=== PATIENT | female | born 1965 | race African-American/Black ===

== ENCOUNTER 2017-06-20 16:40 | Inpatient (IN) ==
[2017-06-20 21:44] LABS: Basophils % 0.3 % (0.0-0.8); Eosinophils # 0.1 10*3/uL (0.0-0.87); Eosinophils % 1.1 % (0.00-10.9); Hematocrit 20.6 VOL% (35.7-47.0); Hemoglobin 6.8 GM/DL (12.0-16.0); Immature Granulocytes % 0.5 %; Immature Granulocytes Absolute 0.06 #; Lymphocytes # 2.4 10*3/uL (1.4-4.0); Lymphocytes % 20.5 % (21.3-54.2); Mean Corpuscular Hemoglobin 29 PG (27-34); Mean Corpuscular Volume 87.3 FL (87-102); Mean Platelet Volume 10.3 FL (9.6-12.0); Monocytes # 1.4 10*3/uL (0.11-0.8); Monocytes % 12.2 % (1.7-12.7); Neutrophils # 7.5 10*3/uL (1.4-7.4); Neutrophils % 65.4 % (38.7-73.9); Platelet Count 217 T/CUMM (130-400); Red Blood Count 2.36 MC/CUMM (3.8-5.5); Red Cell Distribution Width 14.4 % (9.3-17.3); White Blood Count 11.5 T/CUMM (4-12)
[2017-06-20 21:51] LABS: INR 1.1; PT Patient Result 11.8 SECS
[2017-06-20] MEDS ORDERED: HYDROmorphone 2 MG/1 ML VIAL IV STA (22:06)
[2017-06-20] MEDS ORDERED: ALBUTEROL/IPRATROPIUM 3 ML NEB RESP TX STA (22:06)
[2017-06-20] MEDS ORDERED: ONDANSETRON 4 MG/2 ML VIAL IV STA (22:06)
[2017-06-20] MEDS ORDERED: ONDANSETRON 4 MG/2 ML VIAL ONE (23:32)
[2017-06-20] MEDS ORDERED: HYDROmorphone 2 MG/1 ML VIAL ONE (23:34)
[2017-06-20 23:47] LABS: Alanine Aminotransferase 63 U/L (13-56); Albumin 3.9 G/DL (3.4-5.0); Alkaline Phosphatase 145 U/L (45-117); Aspartate Amino Transferase 46 U/L (0-37); Blood Urea Nitrogen 18 MG/DL (7-18); Calcium 8.2 MG/DL (8.5-10.1); Glucose 104 MG/DL (74-106); Magnesium 2.1 MG/DL (1.8-2.4); Potassium 3.6 MMOL/L (3.5-5.1); Sodium 136 MMOL/L (136-145); Total Protein 7.8 G/DL (6.4-8.3)
[2017-06-21] MEDS ORDERED: guaiFENesin/DM ER 600-30 MG TABLET PO PRN (01:50)
[2017-06-21] MEDS ORDERED: SODIUM CHLORIDE 0.9% 1,000 ML IV PRN (01:50)
[2017-06-21] MEDS ORDERED: FUROSEMIDE 40 MG/4 ML VIAL IV STA (01:50)
[2017-06-21] MEDS ORDERED: ONDANSETRON 4 MG/2 ML VIAL ONE (02:55)
[2017-06-21] MEDS ORDERED: HYDROmorphone 2 MG/1 ML VIAL ONE (02:55)
[2017-06-21] MEDS: HYDROmorphone 2 MG/1 ML VIAL IV PRN ×3 (02:58→20:39)
[2017-06-21] MEDS: ONDANSETRON 4 MG/2 ML VIAL IV PRN ×2 (03:00→14:18)
[2017-06-21] MEDS: ENOXAPARIN 30 MG/0.3 ML SYRINGE SUBCUT SCH (06:45)
[2017-06-21] MEDS: PANTOPRAZOLE 40 MG TABLET PO SCH (11:02)
[2017-06-21] MEDS: DOCUSATE SODIUM 100 MG CAPSULE PO SCH ×2 (11:02→20:37)
[2017-06-21 12:59] LABS: Hematocrit 28.4 VOL% (35.7-47.0); Hemoglobin 9.6 GM/DL (12.0-16.0)
[2017-06-21] MEDS: CALCIUM ACETATE 667 MG CAPSULE PO SCH (18:18)
[2017-06-21] MEDS: CARVEDILOL 12.5 MG TABLET PO SCH (20:38)
[2017-06-21] MEDS: FANAPT 8 MG PO SCH (20:38)
[2017-06-22] MEDS: ENOXAPARIN 30 MG/0.3 ML SYRINGE SUBCUT SCH (04:10)
[2017-06-22] MEDS: HYDROmorphone 2 MG/1 ML VIAL IV PRN (04:18)
[2017-06-22 06:03] LABS: Basophils % 0.4 % (0.0-0.8); Eosinophils # 0.2 10*3/uL (0.0-0.87); Eosinophils % 1.9 % (0.00-10.9); Hematocrit 28.1 VOL% (35.7-47.0); Hemoglobin 9.4 GM/DL (12.0-16.0); Immature Granulocytes % 0.4 %; Immature Granulocytes Absolute 0.05 #; Lymphocytes # 2.2 10*3/uL (1.4-4.0); Lymphocytes % 19.5 % (21.3-54.2); Mean Corpuscular HGB Conc 33.5 GM/DL (32-36); Mean Corpuscular Hemoglobin 29 PG (27-34); Mean Corpuscular Volume 87.8 FL (87-102); Mean Platelet Volume 11.2 FL (9.6-12.0); Monocytes # 1.5 10*3/uL (0.11-0.8); Monocytes % 13.5 % (1.7-12.7); NRBC # 0.02 10*3/uL; Neutrophils # 7.3 10*3/uL (1.4-7.4); Neutrophils % 64.3 % (38.7-73.9); Platelet Count 187 T/CUMM (130-400); Red Cell Distribution Width 15.1 % (9.3-17.3); White Blood Count 11.4 T/CUMM (4-12)
[2017-06-22 06:57] LABS: Albumin 3.7 G/DL (3.4-5.0); Bilirubin,Total 1.6 MG/DL (0.2-1.0); Calcium 7.5 MG/DL (8.5-10.1); Osmolality,Calculated 282.5 MOS/KG (273-304); Potassium 4.5 MMOL/L (3.5-5.1); Total Protein 7.2 G/DL (6.4-8.3)
[2017-06-22] MEDS ORDERED: LOSARTAN 50 MG TABLET PO SCH (09:00)
[2017-06-22] MEDS ORDERED: CINACALCET 30 MG TABLET PO SCH (09:00)
[2017-06-22 09:33] VITALS: BP 136/69
[2017-06-22] MEDS: FANAPT 8 MG PO SCH (09:41)
[2017-06-22] MEDS: DOCUSATE SODIUM 100 MG CAPSULE PO SCH (09:41)
[2017-06-22] MEDS: CALCIUM ACETATE 667 MG CAPSULE PO SCH ×2 (09:41→12:04)
[2017-06-22] MEDS: CARVEDILOL 12.5 MG TABLET PO SCH (09:41)
[2017-06-22] MEDS: PANTOPRAZOLE 40 MG TABLET PO SCH (09:42)
[2017-06-22] MEDS ORDERED: VANCOMYCIN INJ 1,000 MG in SODIUM CHLORIDE 0.9% 250 ML IV ONE (13:00)
[2017-06-22] MEDS ORDERED: HEPARIN LOCK FLUSH 500 UNIT/5 ML SYRINGE IV PRN (14:52)
== END 2017-06-22 15:56 | disposition home or self-care (01) | DRG 811 ==
LOC: N.ED 16:40 → N.EDINP 06-21 01:00 → N.4E 06-21 12:12
PROVIDERS: ADMIT Family Medicine; ATTEND Family Medicine

== ENCOUNTER 2017-07-28 21:42 | Inpatient (IN) ==
[2017-07-29] MEDS ORDERED: PROMETHAZINE INJ 12.5 MG in SODIUM CHLORIDE 0.9% 50 ML IV STA (00:22)
[2017-07-29] MEDS ORDERED: HYDROmorphone 2 MG/1 ML VIAL IV STA (00:22)
[2017-07-29] MEDS ORDERED: PROMETHAZINE 25 MG/1 ML VIAL ONE (00:27)
[2017-07-29] MEDS ORDERED: HYDROmorphone 2 MG/1 ML VIAL ONE (00:28)
[2017-07-29] MEDS ORDERED: NOREPINEPHRINE 4 MG/4 ML VIAL IV ONE (01:07)
[2017-07-29 01:36] LABS: Basophils % 0.3 % (0.0-0.8); Eosinophils # 0.2 10*3/uL (0.0-0.87); Eosinophils % 1.6 % (0.00-10.9); Hemoglobin 9.1 GM/DL (12.0-16.0); Immature Granulocytes % 0.5 %; Immature Granulocytes Absolute 0.07 #; Lymphocytes # 2.3 10*3/uL (1.4-4.0); Lymphocytes % 17.5 % (21.3-54.2); Mean Corpuscular HGB Conc 33.7 GM/DL (32-36); Mean Corpuscular Hemoglobin 29 PG (27-34); Mean Corpuscular Volume 85.2 FL (87-102); Mean Platelet Volume 11.1 FL (9.6-12.0); Monocytes # 1.4 10*3/uL (0.11-0.8); Monocytes % 10.6 % (1.7-12.7); Neutrophils # 8.9 10*3/uL (1.4-7.4); Neutrophils % 69.5 % (38.7-73.9); Platelet Count 190 T/CUMM (130-400); Red Blood Count 3.17 MC/CUMM (3.8-5.5); Red Cell Distribution Width 14.9 % (9.3-17.3); White Blood Count 12.9 T/CUMM (4-12)
[2017-07-29 02:42] LABS: Bilirubin,Total 2.1 MG/DL (0.2-1.0); Calcium 8.3 MG/DL (8.5-10.1); Osmolality,Calculated 291.5 MOS/KG (273-304); Potassium 4.5 MMOL/L (3.5-5.1); Total Protein 7.7 G/DL (6.4-8.3); Troponin I Only 0.019 NG/ML (0.00-0.045)
[2017-07-29] MEDS ORDERED: METHOCARBAMOL 750 MG TABLET PO PRN (03:38)
[2017-07-29] MEDS ORDERED: ONDANSETRON 4 MG/2 ML VIAL IV PRN (03:55)
[2017-07-29] MEDS ORDERED: ILOPERIDONE 8 MG PO SCH (09:00)
[2017-07-29] MEDS: CALCIUM ACETATE 667 MG CAPSULE PO SCH ×3 (09:14→17:17)
[2017-07-29] MEDS: PANTOPRAZOLE 40 MG TABLET PO SCH (09:14)
[2017-07-29] MEDS: LOSARTAN 50 MG TABLET PO SCH (09:14)
[2017-07-29] MEDS: CARVEDILOL 12.5 MG TABLET PO SCH ×2 (09:14→20:36)
[2017-07-29] MEDS: CINACALCET 30 MG TABLET PO SCH (17:16)
[2017-07-30 04:05] LABS: Basophils # 0.1 10*3/uL (0.0-0.2); Basophils % 0.5 % (0.0-0.8); Eosinophils # 0.4 10*3/uL (0.0-0.87); Eosinophils % 3.8 % (0.00-10.9); Hematocrit 28.4 VOL% (35.7-47.0); Hemoglobin 9.2 GM/DL (12.0-16.0); Immature Granulocytes % 0.4 %; Immature Granulocytes Absolute 0.04 #; Lymphocytes # 2.3 10*3/uL (1.4-4.0); Lymphocytes % 22.1 % (21.3-54.2); Mean Corpuscular HGB Conc 32.4 GM/DL (32-36); Mean Corpuscular Hemoglobin 28 PG (27-34); Mean Corpuscular Volume 87.4 FL (87-102); Mean Platelet Volume 10.7 FL (9.6-12.0); Monocytes # 1.4 10*3/uL (0.11-0.8); Monocytes % 13.4 % (1.7-12.7); Neutrophils # 6.3 10*3/uL (1.4-7.4); Neutrophils % 59.8 % (38.7-73.9); Platelet Count 180 T/CUMM (130-400); Red Blood Count 3.25 MC/CUMM (3.8-5.5); Red Cell Distribution Width 15.5 % (9.3-17.3); White Blood Count 10.6 T/CUMM (4-12)
[2017-07-30 04:34] LABS: Albumin 3.9 G/DL (3.4-5.0); Bilirubin,Total 1.4 MG/DL (0.2-1.0); Calcium 8.1 MG/DL (8.5-10.1); Osmolality,Calculated 282.7 MOS/KG (273-304); Potassium 4.4 MMOL/L (3.5-5.1)
[2017-07-30] MEDS: PANTOPRAZOLE 40 MG TABLET PO SCH (09:34)
[2017-07-30] MEDS: LOSARTAN 50 MG TABLET PO SCH (09:34)
[2017-07-30] MEDS: CARVEDILOL 12.5 MG TABLET PO SCH ×2 (09:34→20:59)
[2017-07-30] MEDS: CALCIUM ACETATE 667 MG CAPSULE PO SCH ×3 (09:34→17:17)
[2017-07-30] MEDS: cloNIDine 0.1 MG TABLET PO SCH ×3 (11:16→20:59)
[2017-07-30] MEDS: CINACALCET 30 MG TABLET PO SCH (17:17)
[2017-07-31 04:16] LABS: Basophils % 0.4 % (0.0-0.8); Eosinophils # 0.4 10*3/uL (0.0-0.87); Eosinophils % 3.6 % (0.00-10.9); Hematocrit 28.6 VOL% (35.7-47.0); Hemoglobin 9.3 GM/DL (12.0-16.0); Immature Granulocytes % 0.4 %; Immature Granulocytes Absolute 0.04 #; Lymphocytes # 2.5 10*3/uL (1.4-4.0); Lymphocytes % 23.3 % (21.3-54.2); Mean Corpuscular HGB Conc 32.5 GM/DL (32-36); Mean Corpuscular Hemoglobin 29 PG (27-34); Mean Corpuscular Volume 88.5 FL (87-102); Mean Platelet Volume 10.4 FL (9.6-12.0); Monocytes # 1.2 10*3/uL (0.11-0.8); Monocytes % 11.3 % (1.7-12.7); Neutrophils # 6.7 10*3/uL (1.4-7.4); Platelet Count 169 T/CUMM (130-400); Red Blood Count 3.23 MC/CUMM (3.8-5.5); Red Cell Distribution Width 15.4 % (9.3-17.3); White Blood Count 10.9 T/CUMM (4-12)
[2017-07-31 04:48] LABS: Calcium 7.8 MG/DL (8.5-10.1); Potassium 4.6 MMOL/L (3.5-5.1)
[2017-07-31] MEDS: PANTOPRAZOLE 40 MG TABLET PO SCH (08:53)
[2017-07-31] MEDS: CARVEDILOL 12.5 MG TABLET PO SCH (08:53)
[2017-07-31] MEDS: cloNIDine 0.1 MG TABLET PO SCH (08:53)
[2017-07-31] MEDS: LOSARTAN 50 MG TABLET PO SCH (08:53)
[2017-07-31] MEDS: CALCIUM ACETATE 667 MG CAPSULE PO SCH (08:53)
[2017-07-31 10:12] VITALS: BP 160/90
[2017-07-31] MEDS ORDERED: HEPARIN LOCK FLUSH 500 UNIT/5 ML SYRINGE IV ONE (10:27)
== END 2017-07-31 11:26 | disposition home or self-care (01) | DRG 640 ==
LOC: N.ED 21:42 → N.EDINP 07-29 03:36 → N.3E 07-29 03:58
PROVIDERS: ADMIT Internal Medicine; ATTEND Internal Medicine

== ENCOUNTER 2017-10-13 13:49 | Observation (INO) ==
[2017-10-13] MEDS ORDERED: SODIUM CHLORIDE 0.9% 1,000 ML IV STA (14:29)
[2017-10-13] MEDS ORDERED: ONDANSETRON ODT 4 MG TABLET PO STA (14:29)
[2017-10-13] MEDS ORDERED: cefTRIAXone 1,000 MG in SODIUM CHLORIDE 0.9% 100 ML IV STA (14:37)
[2017-10-13] MEDS ORDERED: HYDROmorphone 2 MG/1 ML VIAL IV STA (14:37)
[2017-10-13 15:01] LABS: Basophils % 0.2 % (0.0-0.8); Eosinophils # 0.1 10*3/uL (0.0-0.87); Eosinophils % 0.9 % (0.00-10.9); Immature Granulocytes % 0.6 %; Immature Granulocytes Absolute 0.06 #; Lymphocytes # 2.2 10*3/uL (1.4-4.0); Lymphocytes % 20.5 % (21.3-54.2); Mean Corpuscular HGB Conc 33.7 GM/DL (32-36); Mean Corpuscular Hemoglobin 28 PG (27-34); Mean Platelet Volume 10.3 FL (9.6-12.0); Monocytes # 1.3 10*3/uL (0.11-0.8); Monocytes % 11.8 % (1.7-12.7); NRBC # 0.06 10*3/uL; Platelet Count 201 T/CUMM (130-400); Red Blood Count 2.12 MC/CUMM (3.8-5.5); Red Cell Distribution Width 17.7 % (9.3-17.3); White Blood Count 10.6 T/CUMM (4-12)
[2017-10-13 15:06] LABS: Hematocrit 17.8 VOL% (35.7-47.0)
[2017-10-13 15:15] LABS: Albumin 3.5 G/DL (3.4-5.0); Bilirubin,Total 2.9 MG/DL (0.2-1.0); Calcium 8.2 MG/DL (8.5-10.1); Osmolality,Calculated 275.8 MOS/KG (273-304); Potassium 3.6 MMOL/L (3.5-5.1); Total Protein 7.4 G/DL (6.4-8.3)
[2017-10-13] MEDS ORDERED: SODIUM CHLORIDE 0.9% 1,000 ML IV PRN (15:39)
[2017-10-13] MEDS ORDERED: ONDANSETRON 4 MG/2 ML VIAL IV PRN (15:50)
[2017-10-13] MEDS ORDERED: ACETAMINOPHEN 325 MG TABLET PO PRN (15:50)
[2017-10-13] MEDS ORDERED: METHOCARBAMOL 750 MG TABLET PO PRN (15:53)
[2017-10-13] MEDS: CINACALCET 30 MG TABLET PO SCH (18:11)
[2017-10-13] MEDS: CALCIUM ACETATE 667 MG CAPSULE PO SCH (18:12)
[2017-10-13] MEDS: CARVEDILOL 12.5 MG TABLET PO SCH (20:17)
[2017-10-13] MEDS: hydrALAZINE 25 MG TABLET PO SCH (20:18)
[2017-10-13] MEDS: ILOPERIDONE 8 MG PO SCH (20:19)
[2017-10-13] MEDS ORDERED: ACETAMINOPHEN 325 MG TABLET PO ONE (20:28)
[2017-10-13] MEDS ORDERED: diphenhydrAMINE CAP 25 MG CAPSULE PO ONE (20:28)
[2017-10-14 05:53] LABS: Basophils % 0.2 % (0.0-0.8); Eosinophils # 0.1 10*3/uL (0.0-0.87); Eosinophils % 1.5 % (0.00-10.9); Hematocrit 22.7 VOL% (35.7-47.0); Immature Granulocytes % 0.8 %; Immature Granulocytes Absolute 0.07 #; Lymphocytes # 1.6 10*3/uL (1.4-4.0); Lymphocytes % 17.2 % (21.3-54.2); Mean Corpuscular HGB Conc 34.4 GM/DL (32-36); Mean Corpuscular Hemoglobin 29 PG (27-34); Mean Corpuscular Volume 85.3 FL (87-102); Mean Platelet Volume 11.5 FL (9.6-12.0); Monocytes % 10.6 % (1.7-12.7); Neutrophils # 6.5 10*3/uL (1.4-7.4); Neutrophils % 69.7 % (38.7-73.9); Platelet Count 185 T/CUMM (130-400); Red Blood Count 2.66 MC/CUMM (3.8-5.5); Red Cell Distribution Width 17.2 % (9.3-17.3); White Blood Count 9.3 T/CUMM (4-12)
[2017-10-14 06:01] LABS: Hemoglobin 7.8 GM/DL (12.0-16.0)
[2017-10-14 06:22] LABS: Calcium 7.6 MG/DL (8.5-10.1); Osmolality,Calculated 276.8 MOS/KG (273-304); Potassium 3.8 MMOL/L (3.5-5.1)
[2017-10-14] MEDS: CARVEDILOL 12.5 MG TABLET PO SCH ×2 (08:39→22:30)
[2017-10-14] MEDS: PANTOPRAZOLE 40 MG TABLET PO SCH (08:39)
[2017-10-14] MEDS: ILOPERIDONE 8 MG PO SCH ×2 (08:39→22:32)
[2017-10-14] MEDS: hydrALAZINE 25 MG TABLET PO SCH ×3 (08:39→22:30)
[2017-10-14] MEDS: CALCIUM ACETATE 667 MG CAPSULE PO SCH ×3 (08:39→17:45)
[2017-10-14] MEDS ORDERED: amLODIPine 2.5 MG TABLET PO SCH (09:00)
[2017-10-14] MEDS ORDERED: EPOETIN ALFA 10,000 UNIT/1 ML VIAL IV PRN (09:40)
[2017-10-14] MEDS: guaiFENesin/CODEINE 5 ML LIQUID PO PRN ×2 (14:31→22:31)
[2017-10-14] MEDS: amLODIPine 5 MG TABLET PO SCH (14:31)
[2017-10-14] MEDS ORDERED: cefTRIAXone 1,000 MG in SYRINGE 1 EACH IV SCH (15:00)
[2017-10-14] MEDS: CINACALCET 30 MG TABLET PO SCH (17:45)
[2017-10-14] MEDS ORDERED: MEPERIDINE 25 MG/1 ML VIAL IV PRN (18:44)
[2017-10-15] MEDS: CALCIUM ACETATE 667 MG CAPSULE PO SCH ×2 (09:48→12:49)
[2017-10-15] MEDS: hydrALAZINE 25 MG TABLET PO SCH (09:49)
[2017-10-15] MEDS: PANTOPRAZOLE 40 MG TABLET PO SCH (09:54)
[2017-10-15] MEDS: ILOPERIDONE 8 MG PO SCH (09:54)
[2017-10-15 12:35] VITALS: BP 179/89
[2017-10-15] MEDS: CARVEDILOL 12.5 MG TABLET PO SCH (12:49)
[2017-10-15] MEDS: amLODIPine 5 MG TABLET PO SCH (12:49)
== END 2017-10-15 13:32 | disposition home or self-care (01) ==
LOC: N.ED 13:49 → N.EDINP 13:49 → SUATTDRO 15:50 → N.2E 17:15
PROVIDERS: ADMIT Internal Medicine; ATTEND Internal Medicine Infectious Disease

== ENCOUNTER 2017-11-16 08:59 | Inpatient (IN) ==
[2017-11-16 10:23] LABS: Basophils % 0.1 % (0.0-0.8); Hematocrit 21.3 VOL% (35.7-47.0); Hemoglobin 6.9 GM/DL (12.0-16.0); Immature Granulocytes % 0.9 %; Lymphocytes # 2.5 10*3/uL (1.4-4.0); Lymphocytes % 11.3 % (21.3-54.2); Mean Corpuscular HGB Conc 32.4 GM/DL (32-36); Mean Corpuscular Hemoglobin 29 PG (27-34); Mean Platelet Volume 10.9 FL (9.6-12.0); Monocytes # 2.8 10*3/uL (0.11-0.8); Monocytes % 13.1 % (1.7-12.7); NRBC # 0.06 10*3/uL; Neutrophils # 16.2 10*3/uL (1.4-7.4); Neutrophils % 74.6 % (38.7-73.9); Platelet Count 218 T/CUMM (130-400); Red Blood Count 2.42 MC/CUMM (3.8-5.5); Red Cell Distribution Width 19.9 % (9.3-17.3); White Blood Count 21.7 T/CUMM (4-12)
[2017-11-16] MEDS ORDERED: HYDROmorphone 2 MG/1 ML VIAL ONE (10:23)
[2017-11-16] MEDS ORDERED: ONDANSETRON 4 MG/2 ML VIAL ONE (10:23)
[2017-11-16] MEDS ORDERED: fentaNYL 100 MCG/2 ML VIAL IV STA (10:24)
[2017-11-16] MEDS ORDERED: ONDANSETRON 4 MG/2 ML VIAL IV STA (10:25)
[2017-11-16 10:50] LABS: Albumin 3.7 G/DL (3.4-5.0); Bilirubin,Total 3.3 MG/DL (0.2-1.0); Calcium 8.7 MG/DL (8.5-10.1); Osmolality,Calculated 293.5 MOS/KG (273-304); Potassium 4.2 MMOL/L (3.5-5.1); Total Protein 7.4 G/DL (6.4-8.3)
[2017-11-16 10:53] LABS: INR 1.3; PT Patient Result 13.7 SECS
[2017-11-16 12:13] LABS: Partial Thromboplastin Time > 320.0 SECS (0-40)
[2017-11-16 12:37] LABS: Band Neutrophils 4 % (0-10); Hypochromasia 2+; Lymphocytes 14 % (20-55); Macrocytosis 1+; Microcytosis 1+; Segmented Neutrophils 73 % (50-85); Total Cells Counted 100
[2017-11-16 12:38] LABS: Pappenheimer Bodies Few; Polychromasia Slight; Target Cells Slight
[2017-11-16 12:39] LABS: Platelet Estimate Adequate; Sickle Cells Slight
[2017-11-16] MEDS ORDERED: GLUCAGON 1 MG VIAL IM PRN (13:52)
[2017-11-16] MEDS ORDERED: ACETAMINOPHEN 325 MG TABLET PO PRN (13:52)
[2017-11-16] MEDS ORDERED: guaiFENesin/DM ER 600-30 MG TABLET PO PRN (13:52)
[2017-11-16] MEDS ORDERED: DEXTROSE 50% 25 GM/50 ML VIAL IV PRN (13:52)
[2017-11-16] MEDS ORDERED: ONDANSETRON 4 MG/2 ML VIAL IV PRN (13:52)
[2017-11-16] MEDS ORDERED: DOCUSATE SODIUM 100 MG CAPSULE PO PRN (13:52)
[2017-11-16] MEDS ORDERED: diphenhydrAMINE CAP 25 MG CAPSULE PO PRN (13:52)
[2017-11-16] MEDS ORDERED: MEPERIDINE 50 MG TABLET PO PRN (14:01)
[2017-11-16] MEDS ORDERED: SODIUM CHLORIDE 0.9% 1,000 ML IV PRN (14:47)
[2017-11-16] MEDS ORDERED: HYDROmorphone 2 MG/1 ML VIAL IV PRN (15:18)
[2017-11-16] MEDS ORDERED: CINACALCET 30 MG TABLET PO SCH (17:00)
[2017-11-16 17:06] LABS: Hepatitis A Ab IgM Result Negative (Negative); Hepatitis B Core IgM Quant 0.15 Index; Hepatitis B Core IgM Result Negative (Negative); Hepatitis B Surface Ag Quant < 0.10 Index; Hepatitis B Surface Ag Result Negative (Negative); Hepatitis C Virus Ab Quant 0.13 Index; Hepatitis C Virus Ab Result Negative (Negative)
[2017-11-16] MEDS: BUDESONIDE/FORMOTEROL 160-4.5 INHALER 6 GM INH SCH ×2 (18:11→20:31)
[2017-11-16] MEDS: PANTOPRAZOLE 40 MG TABLET PO SCH (18:11)
[2017-11-16] MEDS: CARVEDILOL 12.5 MG TABLET PO SCH (18:11)
[2017-11-16] MEDS: hydrALAZINE 25 MG TABLET PO SCH ×2 (18:11→20:31)
[2017-11-16] MEDS: MONTELUKAST 10 MG TABLET PO SCH (18:11)
[2017-11-16] MEDS: ILOPERIDONE 8 MG PO SCH ×2 (18:11→22:27)
[2017-11-16] MEDS: CALCIUM ACETATE 667 MG CAPSULE PO SCH (18:12)
[2017-11-17 06:37] LABS: Basophils % 0.2 % (0.0-0.8); Eosinophils # 0.1 10*3/uL (0.0-0.87); Eosinophils % 0.5 % (0.00-10.9); Hematocrit 25.1 VOL% (35.7-47.0); Hemoglobin 8.6 GM/DL (12.0-16.0); Immature Granulocytes Absolute 0.14 #; Lymphocytes # 2.6 10*3/uL (1.4-4.0); Lymphocytes % 18.6 % (21.3-54.2); Mean Corpuscular HGB Conc 34.3 GM/DL (32-36); Mean Corpuscular Hemoglobin 29 PG (27-34); Mean Corpuscular Volume 85.1 FL (87-102); Mean Platelet Volume 11.4 FL (9.6-12.0); Monocytes # 1.8 10*3/uL (0.11-0.8); Monocytes % 12.8 % (1.7-12.7); NRBC # 0.09 10*3/uL; Neutrophils # 9.3 10*3/uL (1.4-7.4); Neutrophils % 66.9 % (38.7-73.9); Platelet Count 240 T/CUMM (130-400); Red Blood Count 2.95 MC/CUMM (3.8-5.5); Red Cell Distribution Width 19.8 % (9.3-17.3); White Blood Count 13.8 T/CUMM (4-12)
[2017-11-17 07:11] LABS: Albumin 3.3 G/DL (3.4-5.0); Bilirubin,Total 3.1 MG/DL (0.2-1.0); Calcium 8.8 MG/DL (8.5-10.1); Osmolality,Calculated 276.2 MOS/KG (273-304); Potassium 4.1 MMOL/L (3.5-5.1); Risk Ratio 6.67; Thyroid Stimulating Hormone 1.7 uIU/ml (0.358-3.74); Total Protein 7.6 G/DL (6.4-8.3)
[2017-11-17] MEDS ORDERED: NALOXONE 0.4 MG/ML VIAL ONE (08:39)
[2017-11-17] MEDS ORDERED: NALOXONE 0.4 MG/ML VIAL IV ONE ×2 (08:41→08:57)
[2017-11-17 08:58] LABS: ABG Base Excess 1.2 MMOL/L (-2.5-2.5); ABG HCO3 25.3 MMOL/L (20-26); ABG Oxygen Saturation 89.1 % (95-100); ABG PH 7.333 (7.35-7.45); ABG PO2 57.2 MM HG (80-95); ABG TCO2 25.8 MMOL/L (23-27)
[2017-11-17] MEDS ORDERED: amLODIPine 2.5 MG TABLET PO SCH (09:00)
[2017-11-17] MEDS ORDERED: OMEGA 3 ACID ETHYL ESTERS 1 GM CAPSULE PO SCH (09:00)
[2017-11-17] MEDS: MONTELUKAST 10 MG TABLET PO SCH (10:00)
[2017-11-17] MEDS: CARVEDILOL 12.5 MG TABLET PO SCH (10:00)
[2017-11-17] MEDS: CALCIUM ACETATE 667 MG CAPSULE PO SCH ×2 (10:00→12:44)
[2017-11-17] MEDS: hydrALAZINE 25 MG TABLET PO SCH (10:00)
[2017-11-17] MEDS: ILOPERIDONE 8 MG PO SCH (10:05)
[2017-11-17] MEDS: PANTOPRAZOLE 40 MG TABLET PO SCH (10:05)
[2017-11-17] MEDS: BUDESONIDE/FORMOTEROL 160-4.5 INHALER 6 GM INH SCH (10:06)
[2017-11-17] MEDS: ACETAMINOPHEN 325 MG TABLET PO PRN (17:19)
[2017-11-18 06:56] LABS: Partial Thromboplastin Time 25.5 SECS (0-40)
[2017-11-18] MEDS: ACETAMINOPHEN 325 MG TABLET PO PRN (09:38)
[2017-11-18 13:18] VITALS: BP 154/70
== END 2017-11-18 13:30 | disposition home or self-care (01) | DRG 811 ==
LOC: EDUNIT# → EDBD → N.ED 08:59 → N.EDINP 13:08 → N.5E 13:45 → N.CC 11-17 08:49 → N.5E 11-17 13:49
PROVIDERS: ADMIT Internal Medicine; ATTEND Internal Medicine

== ENCOUNTER 2018-01-05 19:52 | Inpatient (IN) ==
[2018-01-05] MEDS ORDERED: ALBUTEROL/IPRATROPIUM 3 ML NEB RESP TX STA (20:23)
[2018-01-05] MEDS ORDERED: FUROSEMIDE 100 MG/10 ML VIAL IV STA (20:23)
[2018-01-05] MEDS ORDERED: MEPERIDINE 25 MG/1 ML VIAL IV STA ×2 (20:23→23:32)
[2018-01-05] MEDS ORDERED: ONDANSETRON 4 MG/2 ML VIAL IV STA ×2 (20:23→23:33)
[2018-01-05 20:40] LABS: Basophils % 0.3 % (0.0-0.8); Eosinophils # 0.1 10*3/uL (0.0-0.87); Eosinophils % 0.3 % (0.00-10.9); Hematocrit 26.7 VOL% (35.7-47.0); Hemoglobin 8.9 GM/DL (12.0-16.0); Immature Granulocytes % 0.7 %; Immature Granulocytes Absolute 0.11 #; Lymphocytes % 6.6 % (21.3-54.2); Mean Corpuscular HGB Conc 33.3 GM/DL (32-36); Mean Corpuscular Hemoglobin 29 PG (27-34); Mean Corpuscular Volume 87.3 FL (87-102); Mean Platelet Volume 11.1 FL (9.6-12.0); Monocytes # 1.6 10*3/uL (0.11-0.8); Monocytes % 10.1 % (1.7-12.7); Neutrophils # 12.8 10*3/uL (1.4-7.4); Platelet Count 169 T/CUMM (130-400); Red Blood Count 3.06 MC/CUMM (3.8-5.5); Red Cell Distribution Width 17.1 % (9.3-17.3); White Blood Count 15.6 T/CUMM (4-12)
[2018-01-05 20:48] LABS: Alanine Aminotransferase 70 U/L (13-56); Albumin 3.6 G/DL (3.4-5.0); Alkaline Phosphatase 195 U/L (45-117); Aspartate Amino Transferase 68 U/L (0-37); Blood Urea Nitrogen 58 MG/DL (7-18); Calcium 8.3 MG/DL (8.5-10.1); Glucose 116 MG/DL (74-106); Osmolality,Calculated 289.8 MOS/KG (273-304); PT Patient Result 10.8 SECS; Partial Thromboplastin Time 29.7 SECS (0-40); Potassium 5.3 MMOL/L (3.5-5.1); Sodium 137 MMOL/L (136-145); Total Protein 7.7 G/DL (6.4-8.3); Troponin I < 0.015 NG/ML (0.00-0.045)
[2018-01-05] MEDS ORDERED: hydrALAZINE 20 MG/1 ML VIAL IV STA (21:04)
[2018-01-05] MEDS ORDERED: DOCUSATE SODIUM 100 MG CAPSULE PO PRN (22:56)
[2018-01-05] MEDS ORDERED: ZALEPLON 5 MG CAPSULE PO PRN (22:56)
[2018-01-05] MEDS ORDERED: guaiFENesin/DM ER 600-30 MG TABLET PO PRN (22:56)
[2018-01-05] MEDS ORDERED: PROMETHAZINE 25 MG TABLET PO PRN (22:56)
[2018-01-05] MEDS ORDERED: diphenhydrAMINE CAP 25 MG CAPSULE PO PRN (22:56)
[2018-01-05] MEDS ORDERED: ONDANSETRON 4 MG/2 ML VIAL IV PRN (22:56)
[2018-01-05] MEDS ORDERED: SODIUM POLYSTYRENE SULFATE 15 GM/60 ML BOTTLE PO STA (23:25)
[2018-01-05] MEDS ORDERED: hydrALAZINE 20 MG/1 ML VIAL IV PRN (23:36)
[2018-01-06] MEDS: HYDROmorphone 2 MG/1 ML VIAL IV PRN (05:02)
[2018-01-06 05:43] LABS: Basophils % 0.2 % (0.0-0.8); Eosinophils % 0.3 % (0.00-10.9); Hematocrit 24.5 VOL% (35.7-47.0); Hemoglobin 8.3 GM/DL (12.0-16.0); Immature Granulocytes % 0.8 %; Lymphocytes # 1.6 10*3/uL (1.4-4.0); Lymphocytes % 12.2 % (21.3-54.2); Mean Corpuscular HGB Conc 33.9 GM/DL (32-36); Mean Corpuscular Hemoglobin 29 PG (27-34); Mean Corpuscular Volume 86.9 FL (87-102); Monocytes # 1.5 10*3/uL (0.11-0.8); Monocytes % 11.8 % (1.7-12.7); Neutrophils # 9.5 10*3/uL (1.4-7.4); Neutrophils % 74.7 % (38.7-73.9); Platelet Count 151 T/CUMM (130-400); Red Blood Count 2.82 MC/CUMM (3.8-5.5); Red Cell Distribution Width 17.6 % (9.3-17.3); White Blood Count 12.8 T/CUMM (4-12)
[2018-01-06 06:05] LABS: Albumin 3.5 G/DL (3.4-5.0); Bilirubin,Total 2.1 MG/DL (0.2-1.0); Calcium 8.1 MG/DL (8.5-10.1); Osmolality,Calculated 293.7 MOS/KG (273-304); Potassium 5.1 MMOL/L (3.5-5.1); Total Protein 7.4 G/DL (6.4-8.3)
[2018-01-06] MEDS: ILOPERIDONE 8 MG PO SCH ×2 (09:01→21:25)
[2018-01-06] MEDS: CINACALCET 30 MG TABLET PO SCH (09:02)
[2018-01-06] MEDS: CALCIUM ACETATE 667 MG CAPSULE PO SCH ×3 (09:02→17:13)
[2018-01-06] MEDS: MONTELUKAST 10 MG TABLET PO SCH (09:02)
[2018-01-06] MEDS: ENOXAPARIN 30 MG/0.3 ML SYRINGE SUBCUT SCH (10:26)
[2018-01-06] MEDS ORDERED: VANCOMYCIN INJ 750 MG in SODIUM CHLORIDE 0.9% 250 ML IV PRN (10:41)
[2018-01-06] MEDS ORDERED: VANCOMYCIN INJ 1,500 MG in SODIUM CHLORIDE 0.9% 500 ML IV ONE (11:00)
[2018-01-06] MEDS: amLODIPine 10 MG TABLET PO SCH (15:05)
[2018-01-06] MEDS: CARVEDILOL 12.5 MG TABLET PO SCH ×2 (15:06→21:26)
[2018-01-06] MEDS: LOSARTAN 50 MG TABLET PO SCH (15:06)
[2018-01-06] MEDS: BUDESONIDE/FORMOTEROL 160-4.5 INHALER 6 GM INH SCH ×2 (15:10→21:25)
[2018-01-07] MEDS: HYDROmorphone 2 MG/1 ML VIAL IV PRN (02:41)
[2018-01-07 03:39] LABS: Basophils % 0.4 % (0.0-0.8); Eosinophils # 0.1 10*3/uL (0.0-0.87); Eosinophils % 1.1 % (0.00-10.9); Hematocrit 26.8 VOL% (35.7-47.0); Hemoglobin 8.5 GM/DL (12.0-16.0); Immature Granulocytes % 0.7 %; Immature Granulocytes Absolute 0.07 #; Lymphocytes # 1.3 10*3/uL (1.4-4.0); Lymphocytes % 13.5 % (21.3-54.2); Mean Corpuscular HGB Conc 31.7 GM/DL (32-36); Mean Corpuscular Hemoglobin 29 PG (27-34); Mean Corpuscular Volume 91.8 FL (87-102); Mean Platelet Volume 10.7 FL (9.6-12.0); Monocytes # 1.2 10*3/uL (0.11-0.8); Monocytes % 12.8 % (1.7-12.7); Neutrophils # 6.9 10*3/uL (1.4-7.4); Neutrophils % 71.5 % (38.7-73.9); Platelet Count 148 T/CUMM (130-400); Red Blood Count 2.92 MC/CUMM (3.8-5.5); Red Cell Distribution Width 18.2 % (9.3-17.3); White Blood Count 9.6 T/CUMM (4-12)
[2018-01-07 03:59] LABS: Calcium 8.4 MG/DL (8.5-10.1)
[2018-01-07] MEDS: MONTELUKAST 10 MG TABLET PO SCH ×2 (07:49→08:55)
[2018-01-07] MEDS: CINACALCET 30 MG TABLET PO SCH ×2 (07:49→08:55)
[2018-01-07] MEDS: CALCIUM ACETATE 667 MG CAPSULE PO SCH ×3 (07:49→16:58)
[2018-01-07] MEDS: amLODIPine 10 MG TABLET PO SCH ×2 (07:50→08:55)
[2018-01-07] MEDS: LOSARTAN 50 MG TABLET PO SCH ×2 (07:50→08:55)
[2018-01-07] MEDS: ILOPERIDONE 8 MG PO SCH ×3 (07:50→20:45)
[2018-01-07] MEDS: CARVEDILOL 12.5 MG TABLET PO SCH ×3 (07:50→20:45)
[2018-01-07] MEDS: BUDESONIDE/FORMOTEROL 160-4.5 INHALER 6 GM INH SCH ×3 (07:53→20:45)
[2018-01-07] MEDS: ENOXAPARIN 30 MG/0.3 ML SYRINGE SUBCUT SCH (08:55)
[2018-01-08] MEDS: ENOXAPARIN 30 MG/0.3 ML SYRINGE SUBCUT SCH (08:33)
[2018-01-08] MEDS: CINACALCET 30 MG TABLET PO SCH (08:34)
[2018-01-08] MEDS: MONTELUKAST 10 MG TABLET PO SCH (08:34)
[2018-01-08] MEDS: CALCIUM ACETATE 667 MG CAPSULE PO SCH (08:34)
[2018-01-08] MEDS: CARVEDILOL 12.5 MG TABLET PO SCH (08:34)
[2018-01-08] MEDS: LOSARTAN 50 MG TABLET PO SCH (08:34)
[2018-01-08] MEDS: ILOPERIDONE 8 MG PO SCH (08:36)
[2018-01-08] MEDS: BUDESONIDE/FORMOTEROL 160-4.5 INHALER 6 GM INH SCH (08:37)
[2018-01-08] MEDS: amLODIPine 10 MG TABLET PO SCH (09:38)
[2018-01-08 12:45] VITALS: BP 161/68
== END 2018-01-08 13:16 | disposition home or self-care (01) | DRG 291 ==
LOC: EDUNIT# → EDBD → N.EDINP 19:52 → N.ED 19:52 → N.5E 01-06 00:32 → SUATTDRO 01-06 10:40
PROVIDERS: ATTEND Internal Medicine

== ENCOUNTER 2018-02-28 17:30 | Inpatient (IN) ==
[2018-02-28] MEDS ORDERED: hydrALAZINE 20 MG/1 ML VIAL IV STA ×2 (19:02→22:14)
[2018-02-28 20:43] LABS: Basophils % 0.3 % (0.0-0.8); Eosinophils # 0.1 10*3/uL (0.0-0.87); Immature Granulocytes % 0.6 %; Immature Granulocytes Absolute 0.07 #; Lymphocytes % 25.7 % (21.3-54.2); Mean Corpuscular HGB Conc 33.1 GM/DL (32-36); Mean Corpuscular Hemoglobin 29 PG (27-34); Mean Corpuscular Volume 87.9 FL (87-102); Mean Platelet Volume 10.5 FL (9.6-12.0); Monocytes # 1.4 10*3/uL (0.11-0.8); Monocytes % 11.6 % (1.7-12.7); Neutrophils # 7.2 10*3/uL (1.4-7.4); Neutrophils % 60.8 % (38.7-73.9); Platelet Count 206 T/CUMM (130-400); Red Blood Count 1.99 MC/CUMM (3.8-5.5); Red Cell Distribution Width 15.6 % (9.3-17.3); White Blood Count 11.8 T/CUMM (4-12)
[2018-02-28 20:47] LABS: Hematocrit 17.5 VOL% (35.7-47.0); Hemoglobin 5.8 GM/DL (12.0-16.0)
[2018-02-28] MEDS ORDERED: ONDANSETRON 4 MG/2 ML VIAL IV ONE (21:20)
[2018-02-28] MEDS ORDERED: fentaNYL 100 MCG/2 ML VIAL IV STA (21:20)
[2018-02-28] MEDS ORDERED: ONDANSETRON 4 MG/2 ML VIAL ONE (21:21)
[2018-02-28] MEDS ORDERED: fentaNYL 100 MCG/2 ML VIAL ONE (21:22)
[2018-02-28 21:24] LABS: Albumin 3.8 G/DL (3.4-5.0); Bilirubin,Total 1.3 MG/DL (0.2-1.0); Calcium 8.8 MG/DL (8.5-10.1); Osmolality,Calculated 291.1 MOS/KG (273-304); Potassium 3.7 MMOL/L (3.5-5.1); Total Protein 7.3 G/DL (6.4-8.3)
[2018-02-28] MEDS ORDERED: niCARdipine INJ 25 MG in SODIUM CHLORIDE 0.9% 240 ML IV PRN (22:22)
[2018-02-28] MEDS ORDERED: ONDANSETRON 4 MG/2 ML VIAL IV PRN (23:02)
[2018-02-28] MEDS ORDERED: hydrALAZINE 20 MG/1 ML VIAL IV PRN ×2 (23:07→23:20)
[2018-02-28] MEDS ORDERED: SODIUM CHLORIDE 0.9% 1,000 ML IV PRN (23:12)
[2018-02-28] MEDS: HYDROmorphone 2 MG/1 ML VIAL IV PRN (23:55)
[2018-03-01] MEDS ORDERED: SODIUM CHLORIDE 0.9% 1,000 ML IV PRN ×3 (01:04→08:59)
[2018-03-01] MEDS: CARVEDILOL 25 MG TABLET PO SCH ×3 (01:19→22:45)
[2018-03-01 07:46] LABS: Basophils % 0.2 % (0.0-0.8); Eosinophils % 0.2 % (0.00-10.9); Hematocrit 20.6 VOL% (35.7-47.0); Hemoglobin 6.8 GM/DL (12.0-16.0); Immature Granulocytes % 0.8 %; Immature Granulocytes Absolute 0.11 #; Lymphocytes # 1.1 10*3/uL (1.4-4.0); Lymphocytes % 8.1 % (21.3-54.2); Mean Corpuscular Hemoglobin 29 PG (27-34); Mean Corpuscular Volume 88.4 FL (87-102); Mean Platelet Volume 10.7 FL (9.6-12.0); Monocytes # 0.4 10*3/uL (0.11-0.8); Monocytes % 3.4 % (1.7-12.7); Neutrophils # 11.5 10*3/uL (1.4-7.4); Neutrophils % 87.3 % (38.7-73.9); Platelet Count 203 T/CUMM (130-400); Red Blood Count 2.33 MC/CUMM (3.8-5.5); White Blood Count 13.1 T/CUMM (4-12)
[2018-03-01 08:02] LABS: Calcium 8.4 MG/DL (8.5-10.1); Osmolality,Calculated 288.7 MOS/KG (273-304); Potassium 4.4 MMOL/L (3.5-5.1)
[2018-03-01] MEDS: CINACALCET 30 MG TABLET PO SCH (08:15)
[2018-03-01] MEDS: amLODIPine 10 MG TABLET PO SCH (08:15)
[2018-03-01] MEDS: PANTOPRAZOLE 40 MG TABLET PO SCH (08:15)
[2018-03-01] MEDS: BUDESONIDE/FORMOTEROL 160-4.5 INHALER 6 GM INH SCH ×2 (08:15→22:45)
[2018-03-01] MEDS: LOSARTAN 50 MG TABLET PO SCH (08:15)
[2018-03-01] MEDS: MONTELUKAST 10 MG TABLET PO SCH (08:15)
[2018-03-01] MEDS: CALCIUM ACETATE 667 MG CAPSULE PO SCH ×2 (08:15→16:00)
[2018-03-01] MEDS ORDERED: CARVEDILOL 12.5 MG TABLET PO SCH (09:00)
[2018-03-01] MEDS ORDERED: ILOPERIDONE 8 MG PO SCH (09:00)
[2018-03-01] MEDS: HYDROmorphone 2 MG/1 ML VIAL IV PRN (14:11)
[2018-03-02 01:12] LABS: Hematocrit 26.7 VOL% (35.7-47.0); Hemoglobin 8.9 GM/DL (12.0-16.0)
[2018-03-02 07:55] VITALS: BP 161/72
[2018-03-02] MEDS: CALCIUM ACETATE 667 MG CAPSULE PO SCH (08:08)
[2018-03-02] MEDS: CARVEDILOL 25 MG TABLET PO SCH (08:08)
[2018-03-02] MEDS: CINACALCET 30 MG TABLET PO SCH (08:08)
[2018-03-02] MEDS: PANTOPRAZOLE 40 MG TABLET PO SCH (08:08)
[2018-03-02] MEDS: LOSARTAN 50 MG TABLET PO SCH (08:08)
[2018-03-02] MEDS: amLODIPine 10 MG TABLET PO SCH (08:08)
[2018-03-02] MEDS: MONTELUKAST 10 MG TABLET PO SCH (08:14)
[2018-03-02] MEDS: BUDESONIDE/FORMOTEROL 160-4.5 INHALER 6 GM INH SCH (08:14)
== END 2018-03-02 09:28 | disposition home or self-care (01) | DRG 811 ==
LOC: N.ED 17:30 → N.EDINP 23:02 → N.5E 23:51

== ENCOUNTER 2018-04-19 11:19 | Inpatient (IN) ==
[2018-04-19] MEDS ORDERED: VANCOMYCIN INJ 1,000 MG in SODIUM CHLORIDE 0.9% 250 ML IV STA (13:09)
[2018-04-19 13:42] LABS: Basophils % 0.3 % (0.0-0.8); Eosinophils # 0.2 10*3/uL (0.0-0.87); Eosinophils % 1.2 % (0.00-10.9); Hematocrit 22.3 VOL% (35.7-47.0); Hemoglobin 7.2 GM/DL (12.0-16.0); Immature Granulocytes % 0.6 %; Immature Granulocytes Absolute 0.07 #; Lymphocytes % 16.3 % (21.3-54.2); Mean Corpuscular HGB Conc 32.3 GM/DL (32-36); Mean Corpuscular Hemoglobin 27 PG (27-34); Mean Corpuscular Volume 84.5 FL (87-102); Mean Platelet Volume 10.3 FL (9.6-12.0); Monocytes # 1.1 10*3/uL (0.11-0.8); Monocytes % 8.9 % (1.7-12.7); Neutrophils # 8.9 10*3/uL (1.4-7.4); Neutrophils % 72.7 % (38.7-73.9); Platelet Count 154 T/CUMM (130-400); Red Blood Count 2.64 MC/CUMM (3.8-5.5); Red Cell Distribution Width 16.7 % (9.3-17.3); White Blood Count 12.2 T/CUMM (4-12)
[2018-04-19] MEDS ORDERED: VANCOMYCIN 1,000 MG VIAL ONE (13:52)
[2018-04-19 13:57] LABS: INR 1.1; PT Patient Result 11.7 SECS; Partial Thromboplastin Time 38.1 SECS (0-40)
[2018-04-19 14:32] LABS: Albumin 3.5 G/DL (3.4-5.0); Bilirubin,Total 2.1 MG/DL (0.2-1.0); Calcium 8.6 MG/DL (8.5-10.1); Osmolality,Calculated 277.5 MOS/KG (273-304); Potassium 3.5 MMOL/L (3.5-5.1); Total Protein 7.5 G/DL (6.4-8.3)
[2018-04-19] MEDS ORDERED: HYDROmorphone 2 MG/1 ML VIAL IV STA (14:44)
[2018-04-19] MEDS ORDERED: ONDANSETRON 4 MG/2 ML VIAL IV STA (14:44)
[2018-04-19] MEDS ORDERED: HYDROmorphone 2 MG/1 ML VIAL ONE (14:46)
[2018-04-19] MEDS ORDERED: ONDANSETRON 4 MG/2 ML VIAL ONE (14:46)
[2018-04-19] MEDS ORDERED: LEVOFLOXACIN INJ 500 MG in PREMIX 1 EACH IV SCH (15:30)
[2018-04-19] MEDS ORDERED: SODIUM CHLORIDE 0.9% 1,000 ML IV SCH (15:30)
[2018-04-19] MEDS ORDERED: SODIUM CHLORIDE 0.9% 1,000 ML IV PRN (15:35)
[2018-04-19] MEDS ORDERED: hydrALAZINE 20 MG/1 ML VIAL IV PRN (15:45)
[2018-04-19] MEDS ORDERED: LIDOCAINE 1% 50 ML VIAL ONE (15:47)
[2018-04-19] MEDS ORDERED: AMPICILLIN/SULBACTAM 3,000 MG in SODIUM CHLORIDE 0.9% 100 ML IV SCH (18:00)
[2018-04-19] MEDS ORDERED: VANCOMYCIN INJ 1,500 MG in SODIUM CHLORIDE 0.9% 500 ML IV ONE (18:30)
[2018-04-19] MEDS: hydrALAZINE 25 MG TABLET PO PRN (21:11)
[2018-04-20] MEDS: SODIUM CHLORIDE 0.9% 1,000 ML IV SCH ×3 (02:08→20:30)
[2018-04-20 05:52] LABS: Basophils % 0.4 % (0.0-0.8); Eosinophils # 0.2 10*3/uL (0.0-0.87); Eosinophils % 2.1 % (0.00-10.9); Hematocrit 24.6 VOL% (35.7-47.0); Hemoglobin 7.8 GM/DL (12.0-16.0); Immature Granulocytes % 0.5 %; Immature Granulocytes Absolute 0.05 #; Lymphocytes # 1.8 10*3/uL (1.4-4.0); Lymphocytes % 16.5 % (21.3-54.2); Mean Corpuscular HGB Conc 31.7 GM/DL (32-36); Mean Corpuscular Hemoglobin 28 PG (27-34); Mean Corpuscular Volume 87.2 FL (87-102); Mean Platelet Volume 10.9 FL (9.6-12.0); Monocytes % 9.5 % (1.7-12.7); Neutrophils # 7.5 10*3/uL (1.4-7.4); Platelet Count 161 T/CUMM (130-400); Red Blood Count 2.82 MC/CUMM (3.8-5.5); Red Cell Distribution Width 17.3 % (9.3-17.3); White Blood Count 10.6 T/CUMM (4-12)
[2018-04-20 05:54] LABS: Hematocrit 25.1 VOL% (35.7-47.0); Hemoglobin 7.8 GM/DL (12.0-16.0)
[2018-04-20 06:03] LABS: PT Patient Result 11.3 SECS
[2018-04-20 06:05] LABS: Albumin 3.3 G/DL (3.4-5.0); Bilirubin,Total 2.2 MG/DL (0.2-1.0); Calcium 8.6 MG/DL (8.5-10.1); Osmolality,Calculated 276.8 MOS/KG (273-304); Potassium 3.8 MMOL/L (3.5-5.1); Total Protein 7.4 G/DL (6.4-8.3)
[2018-04-20] MEDS ORDERED: ALBUTEROL 2.5 MG/3 ML NEB RESP TX PRN (09:00)
[2018-04-20] MEDS ORDERED: VANCOMYCIN INJ 500 MG in SODIUM CHLORIDE 0.9% 100 ML IV PRN (09:00)
[2018-04-20] MEDS ORDERED: ILOPERIDONE 8 MG PO SCH (09:00)
[2018-04-20] MEDS: FOLIC ACID 1 MG TABLET PO SCH (09:49)
[2018-04-20] MEDS: amLODIPine 10 MG TABLET PO SCH (09:49)
[2018-04-20] MEDS: PANTOPRAZOLE 40 MG TABLET PO SCH (09:49)
[2018-04-20] MEDS: MONTELUKAST 10 MG TABLET PO SCH (09:49)
[2018-04-20] MEDS: CINACALCET 30 MG TABLET PO SCH (09:49)
[2018-04-20] MEDS: CARVEDILOL 12.5 MG TABLET PO SCH ×2 (09:49→20:53)
[2018-04-20] MEDS: LOSARTAN 50 MG TABLET PO SCH (09:49)
[2018-04-20] MEDS: BUDESONIDE/FORMOTEROL 160-4.5 INHALER 6 GM INH SCH ×2 (09:50→20:53)
[2018-04-20] MEDS ORDERED: SODIUM CHLORIDE 0.9% 1,000 ML IV PRN (13:53)
[2018-04-20] MEDS: oxyCODONE/ACETAMINOPHEN 5-325 MG TABLET PO PRN ×2 (14:32→20:54)
[2018-04-20] MEDS: ONDANSETRON 4 MG/2 ML VIAL IV PRN (15:41)
[2018-04-20] MEDS: CALCIUM ACETATE 667 MG CAPSULE PO SCH (17:58)
[2018-04-20 21:44] LABS: Hemoglobin 8.9 GM/DL (12.0-16.0)
[2018-04-21 06:12] LABS: Basophils % 0.3 % (0.0-0.8); Eosinophils # 0.2 10*3/uL (0.0-0.87); Eosinophils % 1.7 % (0.00-10.9); Hematocrit 29.2 VOL% (35.7-47.0); Hemoglobin 9.1 GM/DL (12.0-16.0); Immature Granulocytes % 0.3 %; Immature Granulocytes Absolute 0.04 #; Lymphocytes # 2.2 10*3/uL (1.4-4.0); Lymphocytes % 19.2 % (21.3-54.2); Mean Corpuscular HGB Conc 31.2 GM/DL (32-36); Mean Corpuscular Hemoglobin 27 PG (27-34); Mean Corpuscular Volume 86.9 FL (87-102); Mean Platelet Volume 10.7 FL (9.6-12.0); Monocytes # 1.1 10*3/uL (0.11-0.8); Monocytes % 9.6 % (1.7-12.7); NRBC # 0.02 10*3/uL; Neutrophils # 7.9 10*3/uL (1.4-7.4); Neutrophils % 68.9 % (38.7-73.9); Platelet Count 145 T/CUMM (130-400); Red Blood Count 3.36 MC/CUMM (3.8-5.5); Red Cell Distribution Width 17.3 % (9.3-17.3); White Blood Count 11.5 T/CUMM (4-12)
[2018-04-21 06:14] LABS: INR 1.1; PT Patient Result 11.4 SECS
[2018-04-21] MEDS: PANTOPRAZOLE 40 MG TABLET PO SCH (08:59)
[2018-04-21] MEDS: CALCIUM ACETATE 667 MG CAPSULE PO SCH ×2 (08:59→17:08)
[2018-04-21] MEDS: LOSARTAN 50 MG TABLET PO SCH (08:59)
[2018-04-21] MEDS: FOLIC ACID 1 MG TABLET PO SCH (09:00)
[2018-04-21] MEDS: CINACALCET 30 MG TABLET PO SCH (09:00)
[2018-04-21] MEDS: CARVEDILOL 12.5 MG TABLET PO SCH ×2 (09:00→21:50)
[2018-04-21] MEDS: amLODIPine 10 MG TABLET PO SCH (09:00)
[2018-04-21] MEDS: MONTELUKAST 10 MG TABLET PO SCH (09:00)
[2018-04-21] MEDS: BUDESONIDE/FORMOTEROL 160-4.5 INHALER 6 GM INH SCH ×2 (09:00→21:50)
[2018-04-21] MEDS: oxyCODONE/ACETAMINOPHEN 5-325 MG TABLET PO PRN ×2 (09:06→16:05)
[2018-04-21] MEDS: SODIUM CHLORIDE 0.9% 1,000 ML IV SCH (09:22)
[2018-04-21] MEDS ORDERED: EPOETIN ALFA 2,000 UNIT/1 ML VIAL IV PRN (10:59)
[2018-04-21] MEDS ORDERED: VANCOMYCIN INJ 500 MG in SODIUM CHLORIDE 0.9% 100 ML IV ONE (17:00)
[2018-04-21] MEDS: ONDANSETRON 4 MG/2 ML VIAL IV PRN (17:10)
[2018-04-21] MEDS: HYDROmorphone 2 MG/1 ML VIAL IV PRN (23:27)
[2018-04-22 06:13] LABS: Basophils % 0.3 % (0.0-0.8); Eosinophils # 0.2 10*3/uL (0.0-0.87); Eosinophils % 2.1 % (0.00-10.9); Hematocrit 29.2 VOL% (35.7-47.0); Hemoglobin 9.1 GM/DL (12.0-16.0); Immature Granulocytes % 0.9 %; Immature Granulocytes Absolute 0.09 #; Lymphocytes # 1.7 10*3/uL (1.4-4.0); Lymphocytes % 16.7 % (21.3-54.2); Mean Corpuscular HGB Conc 31.2 GM/DL (32-36); Mean Corpuscular Hemoglobin 28 PG (27-34); Mean Platelet Volume 12.5 FL (9.6-12.0); Monocytes # 1.1 10*3/uL (0.11-0.8); Monocytes % 10.8 % (1.7-12.7); NRBC # 0.02 10*3/uL; Neutrophils # 6.8 10*3/uL (1.4-7.4); Neutrophils % 69.2 % (38.7-73.9); Platelet Count 121 T/CUMM (130-400); Red Blood Count 3.28 MC/CUMM (3.8-5.5); Red Cell Distribution Width 17.9 % (9.3-17.3); White Blood Count 9.9 T/CUMM (4-12)
[2018-04-22 06:27] LABS: Calcium 8.3 MG/DL (8.5-10.1); Osmolality,Calculated 276.8 MOS/KG (273-304); Potassium 4.4 MMOL/L (3.5-5.1)
[2018-04-22] MEDS: CALCIUM ACETATE 667 MG CAPSULE PO SCH ×2 (08:27→18:02)
[2018-04-22] MEDS: LOSARTAN 50 MG TABLET PO SCH (08:27)
[2018-04-22] MEDS: CARVEDILOL 12.5 MG TABLET PO SCH ×2 (08:28→20:32)
[2018-04-22] MEDS: amLODIPine 10 MG TABLET PO SCH (08:28)
[2018-04-22] MEDS: FOLIC ACID 1 MG TABLET PO SCH (08:28)
[2018-04-22] MEDS: PANTOPRAZOLE 40 MG TABLET PO SCH (08:28)
[2018-04-22] MEDS: CINACALCET 30 MG TABLET PO SCH (08:28)
[2018-04-22] MEDS: MONTELUKAST 10 MG TABLET PO SCH (08:28)
[2018-04-22] MEDS: BUDESONIDE/FORMOTEROL 160-4.5 INHALER 6 GM INH SCH ×2 (08:29→20:32)
[2018-04-22] MEDS: oxyCODONE/ACETAMINOPHEN 5-325 MG TABLET PO PRN ×2 (08:35→16:00)
[2018-04-22 09:54] LABS: Acanthocytes Few; Eosinophils 1 % (0-10); Lymphocytes 17 % (20-55); Platelet Estimate Adequate; Polychromasia Slight; Schistocytes Few; Segmented Neutrophils 67 % (50-85); Total Cells Counted 100
[2018-04-22] MEDS: HYDROmorphone 2 MG/1 ML VIAL IV PRN ×2 (13:11→17:34)
[2018-04-22] MEDS: ONDANSETRON 4 MG/2 ML VIAL IV PRN (14:31)
[2018-04-22] MEDS: SODIUM CHLORIDE 0.9% 1,000 ML IV SCH ×2 (23:45)
[2018-04-23] MEDS: oxyCODONE/ACETAMINOPHEN 5-325 MG TABLET PO PRN ×3 (00:51→09:27)
[2018-04-23] MEDS: CALCIUM ACETATE 667 MG CAPSULE PO SCH ×2 (09:26→16:36)
[2018-04-23] MEDS: MONTELUKAST 10 MG TABLET PO SCH (09:26)
[2018-04-23] MEDS: FOLIC ACID 1 MG TABLET PO SCH (09:26)
[2018-04-23] MEDS: CARVEDILOL 12.5 MG TABLET PO SCH ×2 (09:26→21:14)
[2018-04-23] MEDS: CINACALCET 30 MG TABLET PO SCH (09:26)
[2018-04-23] MEDS: LOSARTAN 50 MG TABLET PO SCH (09:26)
[2018-04-23] MEDS: amLODIPine 10 MG TABLET PO SCH (09:27)
[2018-04-23] MEDS: hydrALAZINE 25 MG TABLET PO PRN (09:27)
[2018-04-23] MEDS: PANTOPRAZOLE 40 MG TABLET PO SCH (09:27)
[2018-04-23] MEDS: BUDESONIDE/FORMOTEROL 160-4.5 INHALER 6 GM INH SCH ×2 (09:28→21:13)
[2018-04-23] MEDS ORDERED: KETOROLAC 30 MG/1 ML VIAL IV PRN (10:12)
[2018-04-23] MEDS: HYDROmorphone 2 MG/1 ML VIAL IV PRN (23:21)
[2018-04-24] MEDS: HYDROmorphone 2 MG/1 ML VIAL IV PRN (05:46)
[2018-04-24] MEDS: SODIUM CHLORIDE 0.9% 1,000 ML IV SCH (05:47)
[2018-04-24] MEDS: CALCIUM ACETATE 667 MG CAPSULE PO SCH ×2 (08:00→17:15)
[2018-04-24 08:01] VITALS: BP 109/42
[2018-04-24] MEDS: CARVEDILOL 12.5 MG TABLET PO SCH (09:00)
[2018-04-24] MEDS: FOLIC ACID 1 MG TABLET PO SCH (15:21)
[2018-04-24] MEDS: LOSARTAN 50 MG TABLET PO SCH (15:21)
[2018-04-24] MEDS: PANTOPRAZOLE 40 MG TABLET PO SCH (15:21)
[2018-04-24] MEDS: amLODIPine 10 MG TABLET PO SCH (15:21)
[2018-04-24] MEDS: MONTELUKAST 10 MG TABLET PO SCH (15:22)
[2018-04-24] MEDS: CINACALCET 30 MG TABLET PO SCH (15:22)
[2018-04-24] MEDS: BUDESONIDE/FORMOTEROL 160-4.5 INHALER 6 GM INH SCH (15:33)
[2018-04-26] MEDS ORDERED: ceFAZolin 2,000 MG in PREMIX 1 EACH IV SCH (13:00)
== END 2018-04-24 18:38 | disposition home or self-care (01) | DRG 347 ==
LOC: N.EDINP 11:19 → N.ED 11:19 → OBSVTOIN 15:17 → INTOOBSV 15:17 → N.EDINP 16:44 → N.3E 16:51 → SUATTDRO 04-20 12:47 → N.3E 04-24 18:39
PROVIDERS: ADMIT Internal Medicine; ATTEND Internal Medicine

== ENCOUNTER 2018-08-02 11:19 | Observation (INO) ==
[2018-08-02] MEDS ORDERED: SODIUM CHLORIDE 0.9% 1,000 ML IV STA (12:29)
[2018-08-02 12:42] LABS: Basophils % 0.3 % (0.0-0.8); Eosinophils # 0.2 10*3/uL (0.0-0.87); Hematocrit 22.8 VOL% (35.7-47.0); Hemoglobin 7.6 GM/DL (12.0-16.0); Immature Granulocytes % 0.5 %; Immature Granulocytes Absolute 0.04 #; Lymphocytes % 22.1 % (21.3-54.2); Mean Corpuscular HGB Conc 33.3 GM/DL (32-36); Mean Corpuscular Hemoglobin 29 PG (27-34); Mean Platelet Volume 10.6 FL (9.6-12.0); Monocytes % 11.3 % (1.7-12.7); NRBC # 0.03 10*3/uL; Neutrophils # 5.7 10*3/uL (1.4-7.4); Neutrophils % 63.8 % (38.7-73.9); Platelet Count 151 T/CUMM (130-400); Red Blood Count 2.65 MC/CUMM (3.8-5.5); White Blood Count 8.9 T/CUMM (4-12)
[2018-08-02] MEDS ORDERED: HYDROmorphone 2 MG/1 ML VIAL IV STA ×2 (12:47→14:26)
[2018-08-02] MEDS ORDERED: SODIUM CHLORIDE 0.9% 500 ML IV STA (12:51)
[2018-08-02] MEDS ORDERED: ONDANSETRON 4 MG/2 ML VIAL IV PRN (15:27)
[2018-08-02] MEDS ORDERED: ALBUTEROL 2.5 MG/3 ML NEB RESP TX PRN (15:28)
[2018-08-02] MEDS ORDERED: SODIUM CHLORIDE 0.9% 1,000 ML IV PRN (15:30)
[2018-08-02] MEDS ORDERED: SODIUM CHLORIDE 0.9% 1,000 ML IV SCH (15:30)
[2018-08-02] MEDS ORDERED: hydrALAZINE 20 MG/1 ML VIAL IV PRN (15:35)
[2018-08-02 15:51] LABS: Albumin 3.4 G/DL (3.4-5.0); Bilirubin,Total 2.5 MG/DL (0.2-1.0); Calcium 8.6 MG/DL (8.5-10.1); Osmolality,Calculated 281.4 MOS/KG (273-304); Potassium 3.3 MMOL/L (3.5-5.1); Total Protein 7.5 G/DL (6.4-8.3)
[2018-08-02] MEDS: CALCIUM ACETATE 667 MG CAPSULE PO SCH (17:42)
[2018-08-02] MEDS: BUDESONIDE/FORMOTEROL 160-4.5 INHALER 6 GM INH SCH (20:49)
[2018-08-02] MEDS: diphenhydrAMINE CAP 25 MG CAPSULE PO PRN (20:50)
[2018-08-02] MEDS: CARVEDILOL 12.5 MG TABLET PO SCH (20:50)
[2018-08-02] MEDS: HYDROmorphone 2 MG/1 ML VIAL IV PRN (20:50)
[2018-08-02] MEDS ORDERED: ENOXAPARIN 40 MG/0.4 ML SYRINGE SUBCUT SCH (21:00)
[2018-08-02] MEDS: ILOPERIDONE 8 MG PO SCH (21:34)
[2018-08-03] MEDS: HYDROmorphone 2 MG/1 ML VIAL IV PRN ×2 (01:02→07:45)
[2018-08-03 05:26] LABS: Basophils # 0.1 10*3/uL (0.0-0.2); Basophils % 0.6 % (0.0-0.8); Eosinophils # 0.2 10*3/uL (0.0-0.87); Eosinophils % 2.2 % (0.00-10.9); Hemoglobin 7.1 GM/DL (12.0-16.0); Immature Granulocytes % 0.3 %; Immature Granulocytes Absolute 0.03 #; Lymphocytes # 2.1 10*3/uL (1.4-4.0); Lymphocytes % 24.4 % (21.3-54.2); Mean Corpuscular HGB Conc 32.3 GM/DL (32-36); Mean Corpuscular Hemoglobin 28 PG (27-34); Mean Corpuscular Volume 87.6 FL (87-102); Mean Platelet Volume 10.5 FL (9.6-12.0); Monocytes % 11.5 % (1.7-12.7); NRBC # 0.04 10*3/uL; Neutrophils # 5.3 10*3/uL (1.4-7.4); Platelet Count 134 T/CUMM (130-400); Red Blood Count 2.51 MC/CUMM (3.8-5.5); Red Cell Distribution Width 19.9 % (9.3-17.3); White Blood Count 8.7 T/CUMM (4-12)
[2018-08-03 05:37] LABS: Albumin 3.2 G/DL (3.4-5.0); Calcium 8.7 MG/DL (8.5-10.1); Osmolality,Calculated 283.4 MOS/KG (273-304); Potassium 3.7 MMOL/L (3.5-5.1); Total Protein 7.2 G/DL (6.4-8.3)
[2018-08-03] MEDS: CALCIUM ACETATE 667 MG CAPSULE PO SCH (07:48)
[2018-08-03] MEDS ORDERED: LOSARTAN 50 MG TABLET PO SCH (09:00)
[2018-08-03] MEDS ORDERED: CINACALCET 30 MG TABLET PO SCH (09:00)
[2018-08-03] MEDS ORDERED: FOLIC ACID 1 MG TABLET PO SCH (09:00)
[2018-08-03] MEDS ORDERED: amLODIPine 10 MG TABLET PO SCH (09:00)
[2018-08-03] MEDS ORDERED: MONTELUKAST 10 MG TABLET PO SCH (09:00)
[2018-08-03] MEDS ORDERED: MULTIVITAMIN (CENTRUM) TABLET PO SCH (09:00)
[2018-08-03] MEDS: ILOPERIDONE 8 MG PO SCH (09:20)
[2018-08-03] MEDS: CARVEDILOL 12.5 MG TABLET PO SCH (09:20)
[2018-08-03] MEDS: BUDESONIDE/FORMOTEROL 160-4.5 INHALER 6 GM INH SCH (09:20)
[2018-08-03] MEDS: diphenhydrAMINE CAP 25 MG CAPSULE PO PRN (10:08)
[2018-08-03 13:48] VITALS: BP 146/71
== END 2018-08-03 15:30 | disposition home or self-care (01) ==
LOC: N.ED 11:19 → N.EDINP 11:19 → N.5E 16:55
PROVIDERS: ADMIT Hospitalist; ATTEND Hospitalist

== ENCOUNTER 2018-09-03 20:32 | Inpatient (IN) ==
[2018-09-03] MEDS ORDERED: HYDROmorphone 2 MG/1 ML VIAL IV STA (21:50)
[2018-09-03] MEDS ORDERED: ONDANSETRON 4 MG/2 ML VIAL IV ONE (21:50)
[2018-09-03 23:21] LABS: Basophils % 0.3 % (0.0-0.8); Eosinophils # 0.1 10*3/uL (0.0-0.87); Eosinophils % 1.3 % (0.00-10.9); Hematocrit 19.8 VOL% (35.7-47.0); Hemoglobin 6.5 GM/DL (12.0-16.0); Immature Granulocytes % 0.8 %; Immature Granulocytes Absolute 0.09 #; Lymphocytes # 1.2 10*3/uL (1.4-4.0); Lymphocytes % 11.2 % (21.3-54.2); Mean Corpuscular HGB Conc 32.8 GM/DL (32-36); Mean Corpuscular Hemoglobin 29 PG (27-34); Mean Corpuscular Volume 87.2 FL (87-102); Mean Platelet Volume 10.6 FL (9.6-12.0); Monocytes # 1.9 10*3/uL (0.11-0.8); Monocytes % 17.1 % (1.7-12.7); NRBC # 0.09 10*3/uL; Neutrophils # 7.5 10*3/uL (1.4-7.4); Neutrophils % 69.3 % (38.7-73.9); Platelet Count 181 T/CUMM (130-400); Red Blood Count 2.27 MC/CUMM (3.8-5.5); Red Cell Distribution Width 19.6 % (9.3-17.3); White Blood Count 10.9 T/CUMM (4-12)
[2018-09-03 23:42] LABS: Albumin 3.6 G/DL (3.4-5.0); Bilirubin,Total 2.9 MG/DL (0.2-1.0); Calcium 8.3 MG/DL (8.5-10.1); Total Protein 7.2 G/DL (6.4-8.3)
[2018-09-04] MEDS ORDERED: ONDANSETRON 4 MG/2 ML VIAL IV PRN (00:47)
[2018-09-04 00:56] LABS: Lymphocytes 8 % (20-55); Platelet Estimate Normal; Segmented Neutrophils 78 % (50-85); Total Cells Counted 100
[2018-09-04 00:57] LABS: Anisocytosis 1+; Hypochromasia 2+; Macrocytosis 1+; Sickle Cells Few
[2018-09-04 00:58] LABS: Ovalocytes 1+; Target Cells 2+
[2018-09-04] MEDS: HYDROmorphone 2 MG/1 ML VIAL IV PRN ×4 (03:48→20:12)
[2018-09-04] MEDS: PANTOPRAZOLE 40 MG TABLET PO SCH (13:19)
[2018-09-04] MEDS: ENOXAPARIN 30 MG/0.3 ML SYRINGE SUBCUT SCH (13:19)
[2018-09-04 19:59] LABS: Hematocrit 25.1 VOL% (35.7-47.0)
[2018-09-05] MEDS: HYDROmorphone 2 MG/1 ML VIAL IV PRN ×4 (01:51→17:25)
[2018-09-05 04:20] LABS: Basophils % 0.3 % (0.0-0.8); Eosinophils # 0.2 10*3/uL (0.0-0.87); Eosinophils % 1.3 % (0.00-10.9); Hematocrit 25.4 VOL% (35.7-47.0); Hemoglobin 8.2 GM/DL (12.0-16.0); Immature Granulocytes % 0.9 %; Immature Granulocytes Absolute 0.12 #; Lymphocytes # 1.2 10*3/uL (1.4-4.0); Lymphocytes % 8.8 % (21.3-54.2); Mean Corpuscular HGB Conc 32.3 GM/DL (32-36); Mean Corpuscular Hemoglobin 28 PG (27-34); Mean Corpuscular Volume 87.3 FL (87-102); Mean Platelet Volume 10.4 FL (9.6-12.0); Monocytes # 1.7 10*3/uL (0.11-0.8); NRBC # 0.13 10*3/uL; Neutrophils # 10.1 10*3/uL (1.4-7.4); Neutrophils % 75.7 % (38.7-73.9); Platelet Count 174 T/CUMM (130-400); Red Blood Count 2.91 MC/CUMM (3.8-5.5); Red Cell Distribution Width 22.4 % (9.3-17.3); White Blood Count 13.3 T/CUMM (4-12)
[2018-09-05 04:54] LABS: Calcium 8.8 MG/DL (8.5-10.1); Potassium 4.2 MMOL/L (3.5-5.1)
[2018-09-05 05:07] LABS: Hypochromasia Slight; Platelet Estimate Adequate; Polychromasia Few
[2018-09-05] MEDS: ALBUTEROL/IPRATROPIUM 3 ML NEB RESP TX SCH ×3 (12:53→20:10)
[2018-09-05] MEDS ORDERED: ALBUTEROL 2.5 MG/3 ML NEB RESP TX PRN (13:00)
[2018-09-05] MEDS: ENOXAPARIN 30 MG/0.3 ML SYRINGE SUBCUT SCH (13:03)
[2018-09-05] MEDS: amLODIPine 10 MG TABLET PO SCH (13:04)
[2018-09-05] MEDS: amLODIPine 2.5 MG TABLET PO SCH (13:04)
[2018-09-05] MEDS: PANTOPRAZOLE 40 MG TABLET PO SCH (13:04)
[2018-09-05] MEDS: BUDESONIDE 0.5 MG/2 ML NEB RESP TX SCH ×2 (13:09→20:10)
[2018-09-05] MEDS: CINACALCET 30 MG TABLET PO SCH (17:24)
[2018-09-05] MEDS: CALCIUM ACETATE 667 MG CAPSULE PO SCH (17:24)
[2018-09-05] MEDS: CARVEDILOL 12.5 MG TABLET PO SCH (17:25)
[2018-09-05] MEDS: BUDESONIDE/FORMOTEROL 160-4.5 INHALER 6 GM INH SCH (20:48)
[2018-09-05] MEDS: FANAPT PO SCH (20:49)
[2018-09-05] MEDS: HYDROcodone/CHLORPHENIRAMINE ER 5 ML UDCUP PO PRN (20:49)
[2018-09-05] MEDS: MONTELUKAST 10 MG TABLET PO SCH (20:49)
[2018-09-06] MEDS: HYDROcodone/CHLORPHENIRAMINE ER 5 ML UDCUP PO PRN ×2 (00:29→04:46)
[2018-09-06] MEDS: ALBUTEROL/IPRATROPIUM 3 ML NEB RESP TX SCH ×4 (00:38→19:40)
[2018-09-06 04:58] LABS: Basophils % 0.3 % (0.0-0.8); Eosinophils # 0.2 10*3/uL (0.0-0.87); Eosinophils % 1.5 % (0.00-10.9); Hematocrit 23.5 VOL% (35.7-47.0); Hemoglobin 7.5 GM/DL (12.0-16.0); Immature Granulocytes % 0.9 %; Immature Granulocytes Absolute 0.09 #; Lymphocytes # 1.5 10*3/uL (1.4-4.0); Lymphocytes % 15.6 % (21.3-54.2); Mean Corpuscular HGB Conc 31.9 GM/DL (32-36); Mean Corpuscular Hemoglobin 28 PG (27-34); Mean Corpuscular Volume 86.4 FL (87-102); Mean Platelet Volume 10.1 FL (9.6-12.0); Monocytes # 1.4 10*3/uL (0.11-0.8); Monocytes % 14.2 % (1.7-12.7); NRBC # 0.13 10*3/uL; Neutrophils # 6.6 10*3/uL (1.4-7.4); Neutrophils % 67.5 % (38.7-73.9); Platelet Count 146 T/CUMM (130-400); Red Blood Count 2.72 MC/CUMM (3.8-5.5); Red Cell Distribution Width 22.2 % (9.3-17.3); White Blood Count 9.8 T/CUMM (4-12)
[2018-09-06 05:02] LABS: Calcium 8.5 MG/DL (8.5-10.1); Osmolality,Calculated 285.2 MOS/KG (273-304); Potassium 4.4 MMOL/L (3.5-5.1)
[2018-09-06 06:35] LABS: Anisocytosis 1+; Elliptocytes 1+; Hypochromasia 2+; Macrocytosis 1+; Platelet Estimate Adequate
[2018-09-06 06:36] LABS: Sickle Cells Few; Target Cells 2+
[2018-09-06] MEDS: BUDESONIDE 0.5 MG/2 ML NEB RESP TX SCH ×2 (07:19→19:40)
[2018-09-06] MEDS ORDERED: HYDROcodone/CHLORPHENIRAMINE ER 5 ML UDCUP PO PRN (07:30)
[2018-09-06] MEDS: PANTOPRAZOLE 40 MG TABLET PO SCH (08:51)
[2018-09-06] MEDS: CALCIUM ACETATE 667 MG CAPSULE PO SCH ×3 (08:51→16:33)
[2018-09-06] MEDS: CARVEDILOL 12.5 MG TABLET PO SCH ×2 (08:51→16:33)
[2018-09-06] MEDS: amLODIPine 10 MG TABLET PO SCH (08:51)
[2018-09-06] MEDS: amLODIPine 2.5 MG TABLET PO SCH (08:51)
[2018-09-06] MEDS: ENOXAPARIN 30 MG/0.3 ML SYRINGE SUBCUT SCH (08:53)
[2018-09-06] MEDS: BUDESONIDE/FORMOTEROL 160-4.5 INHALER 6 GM INH SCH ×2 (08:54→21:30)
[2018-09-06] MEDS: FANAPT PO SCH ×2 (09:21→21:29)
[2018-09-06] MEDS: CEFEPIME 1,000 MG in SODIUM CHLORIDE 0.9% 100 ML IV SCH (11:37)
[2018-09-06] MEDS ORDERED: LEVOFLOXACIN INJ 750 MG in PREMIX 1 EACH IV ONE (12:00)
[2018-09-06] MEDS: CINACALCET 30 MG TABLET PO SCH (12:22)
[2018-09-06] MEDS: MONTELUKAST 10 MG TABLET PO SCH (21:29)
[2018-09-07] MEDS: ALBUTEROL/IPRATROPIUM 3 ML NEB RESP TX SCH ×3 (01:23→12:30)
[2018-09-07] MEDS: BUDESONIDE 0.5 MG/2 ML NEB RESP TX SCH (07:07)
[2018-09-07 07:59] LABS: Basophils % 0.4 % (0.0-0.8); Eosinophils # 0.2 10*3/uL (0.0-0.87); Eosinophils % 1.7 % (0.00-10.9); Hematocrit 24.2 VOL% (35.7-47.0); Hemoglobin 7.9 GM/DL (12.0-16.0); Immature Granulocytes % 0.8 %; Immature Granulocytes Absolute 0.08 #; Lymphocytes # 1.5 10*3/uL (1.4-4.0); Lymphocytes % 16.2 % (21.3-54.2); Mean Corpuscular HGB Conc 32.6 GM/DL (32-36); Mean Corpuscular Hemoglobin 28 PG (27-34); Mean Corpuscular Volume 85.5 FL (87-102); Monocytes # 1.1 10*3/uL (0.11-0.8); Monocytes % 11.6 % (1.7-12.7); NRBC # 0.08 10*3/uL; Neutrophils # 6.6 10*3/uL (1.4-7.4); Neutrophils % 69.3 % (38.7-73.9); Platelet Count 134 T/CUMM (130-400); Red Blood Count 2.83 MC/CUMM (3.8-5.5); Red Cell Distribution Width 21.7 % (9.3-17.3); White Blood Count 9.5 T/CUMM (4-12)
[2018-09-07 08:24] LABS: Calcium 8.6 MG/DL (8.5-10.1); Osmolality,Calculated 272.5 MOS/KG (273-304); Potassium 4.1 MMOL/L (3.5-5.1)
[2018-09-07] MEDS: CALCIUM ACETATE 667 MG CAPSULE PO SCH ×2 (08:27→14:08)
[2018-09-07 08:33] LABS: Band Neutrophils 1 % (0-10); Eosinophils 1 % (0-10); Hypochromasia 1+; Lymphocytes 16 % (20-55); Platelet Estimate Normal; Segmented Neutrophils 75 % (50-85); Total Cells Counted 100
[2018-09-07] MEDS: CARVEDILOL 12.5 MG TABLET PO SCH (08:56)
[2018-09-07] MEDS: FANAPT PO SCH (08:56)
[2018-09-07] MEDS: PANTOPRAZOLE 40 MG TABLET PO SCH (08:56)
[2018-09-07] MEDS: ENOXAPARIN 30 MG/0.3 ML SYRINGE SUBCUT SCH (08:56)
[2018-09-07] MEDS: amLODIPine 10 MG TABLET PO SCH (08:56)
[2018-09-07] MEDS: BUDESONIDE/FORMOTEROL 160-4.5 INHALER 6 GM INH SCH (08:56)
[2018-09-07] MEDS: amLODIPine 2.5 MG TABLET PO SCH (08:58)
[2018-09-07] MEDS: CEFEPIME 1,000 MG in SODIUM CHLORIDE 0.9% 100 ML IV SCH (10:52)
[2018-09-07 11:55] VITALS: BP 172/97
[2018-09-07] MEDS: CINACALCET 30 MG TABLET PO SCH (14:09)
[2018-09-08] MEDS ORDERED: LEVOFLOXACIN INJ 500 MG in PREMIX 1 EACH IV SCH (09:00)
== END 2018-09-07 14:43 | disposition home or self-care (01) | DRG 811 ==
LOC: N.ED 20:32 → N.EDINP 09-04 00:47 → SUATTDRO 09-04 00:47 → N.2E 09-04 01:28
PROVIDERS: ADMIT Internal Medicine Infectious Disease; ATTEND Internal Medicine

== ENCOUNTER 2018-10-08 00:06 | Observation (INO) ==
[2018-10-08] MEDS ORDERED: HYDROmorphone 2 MG/1 ML VIAL IV STA (00:27)
[2018-10-08 01:13] LABS: Basophils % 0.3 % (0.0-0.8); Eosinophils # 0.2 10*3/uL (0.0-0.87); Eosinophils % 1.4 % (0.00-10.9); Hematocrit 20.7 VOL% (35.7-47.0); Hemoglobin 6.9 GM/DL (12.0-16.0); Immature Granulocytes % 0.7 %; Immature Granulocytes Absolute 0.09 #; Lymphocytes # 2.2 10*3/uL (1.4-4.0); Lymphocytes % 17.9 % (21.3-54.2); Mean Corpuscular HGB Conc 33.3 GM/DL (32-36); Mean Corpuscular Volume 82.1 FL (87-102); Mean Platelet Volume 11.1 FL (9.6-12.0); Monocytes % 11.6 % (1.7-12.7); Neutrophils % 68.1 % (38.7-73.9); Platelet Count 164 T/CUMM (130-400); Red Blood Count 2.52 MC/CUMM (3.8-5.5); Red Cell Distribution Width 20.8 % (9.3-17.3); White Blood Count 12.4 T/CUMM (4-12)
[2018-10-08] MEDS ORDERED: ACETAMINOPHEN 325 MG TABLET PO PRN (04:22)
[2018-10-08] MEDS ORDERED: OXYMETAZOLINE 0.05% NASAL SPRAY 15 ML BOTTLE BOTH NARES PRN (04:26)
[2018-10-08 05:00] LABS: Hematocrit 20.8 VOL% (35.7-47.0); Hemoglobin 6.9 GM/DL (12.0-16.0)
[2018-10-08] MEDS: ONDANSETRON 4 MG/2 ML VIAL IV PRN (05:17)
[2018-10-08] MEDS ORDERED: SODIUM CHLORIDE 0.9% 1,000 ML IV PRN (07:18)
[2018-10-08] MEDS ORDERED: LEVOFLOXACIN 500 MG TABLET PO SCH (09:00)
[2018-10-08] MEDS: amLODIPine 2.5 MG TABLET PO SCH (09:57)
[2018-10-08] MEDS: CALCIUM ACETATE 667 MG CAPSULE PO SCH ×3 (09:58→16:57)
[2018-10-08] MEDS: MONTELUKAST 10 MG TABLET PO SCH (09:58)
[2018-10-08] MEDS: BUDESONIDE/FORMOTEROL 160-4.5 INHALER 6 GM INH SCH ×2 (09:58→21:22)
[2018-10-08] MEDS: CARVEDILOL 12.5 MG TABLET PO SCH ×2 (09:58→16:57)
[2018-10-08] MEDS: CINACALCET 30 MG TABLET PO SCH (11:30)
[2018-10-08] MEDS: PANTOPRAZOLE INJ 200 MG in SODIUM CHLORIDE 0.9% 250 ML IV SCH (21:22)
[2018-10-08 21:24] LABS: Hematocrit 25.2 VOL% (35.7-47.0)
[2018-10-08 21:25] LABS: Hemoglobin 8.3 GM/DL (12.0-16.0)
[2018-10-09 04:48] LABS: Basophils # 0.1 10*3/uL (0.0-0.2); Basophils % 0.4 % (0.0-0.8); Eosinophils # 0.2 10*3/uL (0.0-0.87); Eosinophils % 1.5 % (0.00-10.9); Hematocrit 25.2 VOL% (35.7-47.0); Hemoglobin 8.2 GM/DL (12.0-16.0); Immature Granulocytes % 0.5 %; Immature Granulocytes Absolute 0.06 #; Lymphocytes # 2.3 10*3/uL (1.4-4.0); Lymphocytes % 19.7 % (21.3-54.2); Mean Corpuscular HGB Conc 32.5 GM/DL (32-36); Mean Corpuscular Volume 84.3 FL (87-102); Mean Platelet Volume 10.8 FL (9.6-12.0); Monocytes % 11.1 % (1.7-12.7); NRBC # 0.02 10*3/uL; Neutrophils % 66.8 % (38.7-73.9); Platelet Count 155 T/CUMM (130-400); Red Blood Count 2.99 MC/CUMM (3.8-5.5); Red Cell Distribution Width 19.9 % (9.3-17.3); White Blood Count 11.6 T/CUMM (4-12)
[2018-10-09 05:01] LABS: PT Patient Result 11.2 SECS
[2018-10-09 05:50] LABS: Calcium 9.1 MG/DL (8.5-10.1); Osmolality,Calculated 294.8 MOS/KG (273-304)
[2018-10-09] MEDS: CALCIUM ACETATE 667 MG CAPSULE PO SCH ×3 (08:27→16:50)
[2018-10-09] MEDS: BUDESONIDE/FORMOTEROL 160-4.5 INHALER 6 GM INH SCH ×2 (13:19→22:05)
[2018-10-09] MEDS: CARVEDILOL 12.5 MG TABLET PO SCH ×2 (13:19→16:51)
[2018-10-09] MEDS: MONTELUKAST 10 MG TABLET PO SCH (13:37)
[2018-10-09] MEDS: amLODIPine 2.5 MG TABLET PO SCH (13:37)
[2018-10-09] MEDS: CINACALCET 30 MG TABLET PO SCH (13:38)
[2018-10-09] MEDS: ILOPERIDONE 8 MG PO SCH (22:05)
[2018-10-10] MEDS: PANTOPRAZOLE INJ 200 MG in SODIUM CHLORIDE 0.9% 250 ML IV SCH (04:06)
[2018-10-10] MEDS: CARVEDILOL 12.5 MG TABLET PO SCH ×2 (08:25→16:30)
[2018-10-10] MEDS: amLODIPine 2.5 MG TABLET PO SCH (08:26)
[2018-10-10 08:34] LABS: Calcium 8.9 MG/DL (8.5-10.1); Osmolality,Calculated 292.5 MOS/KG (273-304)
[2018-10-10] MEDS ORDERED: PROPOFOL 200 MG/20 ML VIAL IV ONE (09:00)
[2018-10-10] MEDS ORDERED: LIDOCAINE 2% 5 ML VIAL ONE (09:00)
[2018-10-10] MEDS: CALCIUM ACETATE 667 MG CAPSULE PO SCH ×3 (09:21→16:30)
[2018-10-10] MEDS: ILOPERIDONE 8 MG PO SCH ×2 (11:56→20:14)
[2018-10-10] MEDS: MONTELUKAST 10 MG TABLET PO SCH (11:56)
[2018-10-10] MEDS: BUDESONIDE/FORMOTEROL 160-4.5 INHALER 6 GM INH SCH ×2 (11:57→20:15)
[2018-10-10] MEDS: CINACALCET 30 MG TABLET PO SCH (12:03)
[2018-10-10] MEDS: ONDANSETRON 4 MG/2 ML VIAL IV PRN (16:32)
[2018-10-10] MEDS: PANTOPRAZOLE 40 MG TABLET PO SCH (20:14)
[2018-10-11] MEDS: MONTELUKAST 10 MG TABLET PO SCH (09:14)
[2018-10-11] MEDS: CALCIUM ACETATE 667 MG CAPSULE PO SCH ×3 (09:14→16:29)
[2018-10-11] MEDS: PANTOPRAZOLE 40 MG TABLET PO SCH ×2 (09:15→21:33)
[2018-10-11] MEDS: amLODIPine 2.5 MG TABLET PO SCH (09:15)
[2018-10-11] MEDS: ILOPERIDONE 8 MG PO SCH ×2 (09:15→21:33)
[2018-10-11] MEDS: BUDESONIDE/FORMOTEROL 160-4.5 INHALER 6 GM INH SCH ×2 (09:15→21:32)
[2018-10-11] MEDS: CARVEDILOL 12.5 MG TABLET PO SCH ×2 (09:15→16:29)
[2018-10-11 10:29] LABS: Hematocrit 24.4 VOL% (35.7-47.0); Hemoglobin 7.8 GM/DL (12.0-16.0)
[2018-10-11] MEDS: CINACALCET 30 MG TABLET PO SCH (12:03)
[2018-10-11] MEDS ORDERED: PANTOPRAZOLE 40 MG VIAL IV SCH (21:00)
[2018-10-12 04:32] LABS: Basophils % 0.4 % (0.0-0.8); Eosinophils # 0.2 10*3/uL (0.0-0.87); Eosinophils % 1.7 % (0.00-10.9); Hematocrit 24.5 VOL% (35.7-47.0); Hemoglobin 7.8 GM/DL (12.0-16.0); Immature Granulocytes % 0.7 %; Immature Granulocytes Absolute 0.07 #; Lymphocytes # 1.7 10*3/uL (1.4-4.0); Lymphocytes % 16.6 % (21.3-54.2); Mean Corpuscular HGB Conc 31.8 GM/DL (32-36); Mean Corpuscular Volume 85.7 FL (87-102); Mean Platelet Volume 10.5 FL (9.6-12.0); Monocytes % 11.8 % (1.7-12.7); Neutrophils % 68.8 % (38.7-73.9); Platelet Count 169 T/CUMM (130-400); Red Blood Count 2.86 MC/CUMM (3.8-5.5); White Blood Count 10.3 T/CUMM (4-12)
[2018-10-12 04:54] LABS: Albumin 3.4 G/DL (3.4-5.0); Bilirubin,Total 1.8 MG/DL (0.2-1.0); Calcium 8.6 MG/DL (8.5-10.1); Osmolality,Calculated 286.7 MOS/KG (273-304); Total Protein 7.9 G/DL (6.4-8.3)
[2018-10-12] MEDS ORDERED: amLODIPine 5 MG TABLET PO SCH (07:34)
[2018-10-12] MEDS: CALCIUM ACETATE 667 MG CAPSULE PO SCH (08:40)
[2018-10-12] MEDS: BUDESONIDE/FORMOTEROL 160-4.5 INHALER 6 GM INH SCH (08:40)
[2018-10-12] MEDS: CARVEDILOL 12.5 MG TABLET PO SCH (08:40)
[2018-10-12] MEDS: PANTOPRAZOLE 40 MG TABLET PO SCH (08:40)
[2018-10-12] MEDS: ILOPERIDONE 8 MG PO SCH (08:49)
[2018-10-12 13:31] VITALS: BP 158/62
== END 2018-10-12 13:00 | disposition home or self-care (01) ==
LOC: N.ED 00:06 → N.EDINP 00:06 → SUATTDRO 04:22 → N.5E 06:03
PROVIDERS: ADMIT Internal Medicine

== ENCOUNTER 2018-10-24 14:46 | Inpatient (IN) ==
[2018-10-24 15:45] LABS: Basophils % 0.2 % (0.0-0.8); Eosinophils # 0.1 10*3/uL (0.0-0.87); Eosinophils % 0.5 % (0.00-10.9); Hematocrit 20.5 VOL% (35.7-47.0); Immature Granulocytes % 0.5 %; Immature Granulocytes Absolute 0.06 #; Lymphocytes # 2.3 10*3/uL (1.4-4.0); Lymphocytes % 18.2 % (21.3-54.2); Mean Corpuscular HGB Conc 34.1 GM/DL (32-36); Mean Corpuscular Volume 79.8 FL (87-102); Mean Platelet Volume 10.9 FL (9.6-12.0); Monocytes % 11.6 % (1.7-12.7); Platelet Count 184 T/CUMM (130-400); Red Blood Count 2.57 MC/CUMM (3.8-5.5); Red Cell Distribution Width 19.9 % (9.3-17.3); White Blood Count 12.8 T/CUMM (4-12)
[2018-10-24 16:01] LABS: Albumin 4.1 G/DL (3.4-5.0); Bilirubin,Total 2.5 MG/DL (0.2-1.0); Calcium 9.5 MG/DL (8.5-10.1); Osmolality,Calculated 289.7 MOS/KG (273-304); Total Protein 8.8 G/DL (6.4-8.3)
[2018-10-24] MEDS ORDERED: fentaNYL 100 MCG/2 ML VIAL IV STA ×2 (17:10→18:20)
[2018-10-24] MEDS ORDERED: ONDANSETRON 4 MG/2 ML VIAL IV STA (17:10)
[2018-10-24] MEDS ORDERED: NON-FORMULARY MEDICATION (Glycopyrrolate-Formoterol [Bevespi Aerosphere] 2 PUFF) INH PRN (19:02)
[2018-10-24] MEDS: HYDROmorphone 2 MG/1 ML VIAL IV PRN (21:44)
[2018-10-24] MEDS: BUDESONIDE/FORMOTEROL 160-4.5 INHALER 6 GM INH SCH (22:24)
[2018-10-25] MEDS: HYDROmorphone 2 MG/1 ML VIAL IV PRN ×5 (02:04→22:52)
[2018-10-25] MEDS: diphenhydrAMINE CAP 25 MG CAPSULE PO PRN ×3 (02:33→22:52)
[2018-10-25] MEDS: ILOPERIDONE 8 MG PO SCH ×2 (05:55→18:38)
[2018-10-25] MEDS: CARVEDILOL 12.5 MG TABLET PO SCH ×2 (05:55→18:37)
[2018-10-25 06:31] LABS: Basophils % 0.3 % (0.0-0.8); Eosinophils # 0.1 10*3/uL (0.0-0.87); Eosinophils % 0.4 % (0.00-10.9); Hematocrit 19.5 VOL% (35.7-47.0); Immature Granulocytes % 0.5 %; Immature Granulocytes Absolute 0.07 #; Lymphocytes # 2.3 10*3/uL (1.4-4.0); Lymphocytes % 16.6 % (21.3-54.2); Mean Corpuscular HGB Conc 32.8 GM/DL (32-36); Mean Corpuscular Volume 81.9 FL (87-102); Mean Platelet Volume 10.2 FL (9.6-12.0); Monocytes % 10.8 % (1.7-12.7); Neutrophils % 71.4 % (38.7-73.9); Platelet Count 160 T/CUMM (130-400); Red Blood Count 2.38 MC/CUMM (3.8-5.5); Red Cell Distribution Width 20.2 % (9.3-17.3); White Blood Count 13.7 T/CUMM (4-12)
[2018-10-25 06:39] LABS: Hemoglobin 6.4 GM/DL (12.0-16.0)
[2018-10-25 06:51] LABS: Calcium 9.1 MG/DL (8.5-10.1); Osmolality,Calculated 296.7 MOS/KG (273-304)
[2018-10-25] MEDS: PROMETHAZINE 25 MG TABLET PO PRN (08:03)
[2018-10-25] MEDS ORDERED: SODIUM CHLORIDE 0.9% 1,000 ML IV PRN (08:26)
[2018-10-25] MEDS: MONTELUKAST 10 MG TABLET PO SCH (08:52)
[2018-10-25] MEDS: CALCIUM ACETATE 667 MG CAPSULE PO SCH ×2 (08:52→18:37)
[2018-10-25] MEDS: MULTIVITAMIN (BEROCCA) TABLET PO SCH (08:52)
[2018-10-25] MEDS: BUDESONIDE/FORMOTEROL 160-4.5 INHALER 6 GM INH SCH ×2 (08:53→20:53)
[2018-10-25] MEDS: ONDANSETRON 4 MG TABLET PO PRN ×2 (11:41→18:49)
[2018-10-25] MEDS: CINACALCET 30 MG TABLET PO SCH (11:41)
[2018-10-25 11:59] LABS: Hematocrit 18.4 VOL% (35.7-47.0)
[2018-10-25 12:05] LABS: Hemoglobin 6.2 GM/DL (12.0-16.0)
[2018-10-25] MEDS: amLODIPine 10 MG TABLET PO SCH (18:37)
[2018-10-25] MEDS: amLODIPine 2.5 MG TABLET PO SCH (18:38)
[2018-10-26] MEDS: HYDROmorphone 2 MG/1 ML VIAL IV PRN ×3 (03:47→21:35)
[2018-10-26 04:46] LABS: Basophils # 0.1 10*3/uL (0.0-0.2); Basophils % 0.4 % (0.0-0.8); Eosinophils # 0.1 10*3/uL (0.0-0.87); Eosinophils % 0.4 % (0.00-10.9); Hematocrit 28.8 VOL% (35.7-47.0); Hemoglobin 9.3 GM/DL (12.0-16.0); Immature Granulocytes % 0.7 %; Immature Granulocytes Absolute 0.08 #; Lymphocytes # 1.7 10*3/uL (1.4-4.0); Lymphocytes % 13.7 % (21.3-54.2); Mean Corpuscular HGB Conc 32.3 GM/DL (32-36); Mean Platelet Volume 10.4 FL (9.6-12.0); NRBC # 0.03 10*3/uL; Neutrophils % 73.8 % (38.7-73.9); Platelet Count 173 T/CUMM (130-400); Red Blood Count 3.43 MC/CUMM (3.8-5.5); Red Cell Distribution Width 18.7 % (9.3-17.3); White Blood Count 12.2 T/CUMM (4-12)
[2018-10-26 05:10] LABS: Calcium 9.4 MG/DL (8.5-10.1); Osmolality,Calculated 276.2 MOS/KG (273-304)
[2018-10-26] MEDS: CARVEDILOL 12.5 MG TABLET PO SCH ×2 (06:24→16:35)
[2018-10-26] MEDS: PROMETHAZINE 25 MG TABLET PO PRN (06:30)
[2018-10-26] MEDS: ILOPERIDONE 8 MG PO SCH ×2 (06:35→16:36)
[2018-10-26] MEDS: BUDESONIDE/FORMOTEROL 160-4.5 INHALER 6 GM INH SCH ×2 (08:49→22:02)
[2018-10-26] MEDS: MULTIVITAMIN (BEROCCA) TABLET PO SCH (08:49)
[2018-10-26] MEDS: diphenhydrAMINE CAP 25 MG CAPSULE PO PRN (08:49)
[2018-10-26] MEDS: MONTELUKAST 10 MG TABLET PO SCH (08:49)
[2018-10-26] MEDS: CALCIUM ACETATE 667 MG CAPSULE PO SCH ×2 (08:49→16:36)
[2018-10-26] MEDS ORDERED: POLYETHYLENE GLYCOL POWDER 17 GM PACK PO PRN (08:50)
[2018-10-26] MEDS: POLYETHYLENE GLYCOL POWDER 17 GM PACK PO SCH (09:02)
[2018-10-26] MEDS: CINACALCET 30 MG TABLET PO SCH (11:06)
[2018-10-26] MEDS: amLODIPine 10 MG TABLET PO SCH (16:35)
[2018-10-26] MEDS: amLODIPine 2.5 MG TABLET PO SCH (16:36)
[2018-10-27] MEDS: CARVEDILOL 12.5 MG TABLET PO SCH ×2 (06:14→16:41)
[2018-10-27] MEDS: ILOPERIDONE 8 MG PO SCH ×2 (06:15→16:42)
[2018-10-27] MEDS: CALCIUM ACETATE 667 MG CAPSULE PO SCH ×2 (08:14→16:42)
[2018-10-27] MEDS: MONTELUKAST 10 MG TABLET PO SCH (08:14)
[2018-10-27] MEDS: BUDESONIDE/FORMOTEROL 160-4.5 INHALER 6 GM INH SCH (08:14)
[2018-10-27] MEDS: MULTIVITAMIN (BEROCCA) TABLET PO SCH (08:14)
[2018-10-27] MEDS: POLYETHYLENE GLYCOL POWDER 17 GM PACK PO SCH (08:15)
[2018-10-27 10:06] LABS: Basophils % 0.4 % (0.0-0.8); Eosinophils # 0.1 10*3/uL (0.0-0.87); Eosinophils % 1.3 % (0.00-10.9); Hematocrit 32.6 VOL% (35.7-47.0); Hemoglobin 10.7 GM/DL (12.0-16.0); Immature Granulocytes % 0.7 %; Immature Granulocytes Absolute 0.05 #; Lymphocytes # 1.3 10*3/uL (1.4-4.0); Lymphocytes % 18.2 % (21.3-54.2); Mean Corpuscular HGB Conc 32.8 GM/DL (32-36); Mean Platelet Volume 10.8 FL (9.6-12.0); Monocytes % 10.6 % (1.7-12.7); NRBC # 0.11 10*3/uL; Neutrophils % 68.8 % (38.7-73.9); Platelet Count 157 T/CUMM (130-400); Red Blood Count 3.93 MC/CUMM (3.8-5.5); White Blood Count 7.1 T/CUMM (4-12)
[2018-10-27 10:44] LABS: Albumin 3.5 G/DL (3.4-5.0); Bilirubin,Total 1.9 MG/DL (0.2-1.0); Calcium 8.8 MG/DL (8.5-10.1); Total Protein 7.8 G/DL (6.4-8.3)
[2018-10-27 13:15] VITALS: BP 141/71
[2018-10-27] MEDS: CINACALCET 30 MG TABLET PO SCH (14:02)
[2018-10-27] MEDS: amLODIPine 10 MG TABLET PO SCH (16:42)
[2018-10-27] MEDS: amLODIPine 2.5 MG TABLET PO SCH (16:42)
== END 2018-10-27 17:48 | disposition home or self-care (01) | DRG 811 ==
LOC: N.ED 14:46 → N.EDINP 18:49 → N.5E 20:08
PROVIDERS: ADMIT Internal Medicine; ATTEND Internal Medicine

== ENCOUNTER 2018-12-19 17:49 | Inpatient (IN) ==
[2018-12-19] MEDS ORDERED: ONDANSETRON 4 MG/2 ML VIAL IV ONE (20:35)
[2018-12-19] MEDS ORDERED: HYDROmorphone 2 MG/1 ML VIAL IV STA ×2 (20:35→22:20)
[2018-12-19 21:42] LABS: Basophils % 0.3 % (0.0-0.8); Eosinophils # 0.1 10*3/uL (0.0-0.87); Eosinophils % 0.9 % (0.00-10.9); Hematocrit 21.3 VOL% (35.7-47.0); Immature Granulocytes % 0.7 %; Immature Granulocytes Absolute 0.09 #; Lymphocytes # 2.7 10*3/uL (1.4-4.0); Lymphocytes % 20.3 % (21.3-54.2); Mean Corpuscular HGB Conc 32.9 GM/DL (32-36); Mean Corpuscular Volume 84.9 FL (87-102); Mean Platelet Volume 10.2 FL (9.6-12.0); Monocytes % 12.4 % (1.7-12.7); Neutrophils % 65.4 % (38.7-73.9); Platelet Count 228 T/CUMM (130-400); Red Blood Count 2.51 MC/CUMM (3.8-5.5); Red Cell Distribution Width 20.3 % (9.3-17.3); White Blood Count 13.2 T/CUMM (4-12)
[2018-12-19 22:01] LABS: Albumin 3.5 G/DL (3.4-5.0); Bilirubin,Total 1.6 MG/DL (0.2-1.0); Calcium 8.7 MG/DL (8.5-10.1); Osmolality,Calculated 290.4 MOS/KG (273-304); Total Protein 8.4 G/DL (6.4-8.3)
[2018-12-19] MEDS ORDERED: hydrALAZINE 20 MG/1 ML VIAL IV STA (22:20)
[2018-12-20] MEDS ORDERED: ONDANSETRON 4 MG/2 ML VIAL IV PRN (00:04)
[2018-12-20] MEDS: HEPARIN 5,000 UNIT/1 ML VIAL SUBCUT SCH ×3 (01:58→16:56)
[2018-12-20] MEDS: HYDROmorphone 2 MG/1 ML VIAL IV PRN ×5 (02:06→21:06)
[2018-12-20] MEDS: diphenhydrAMINE 50 MG/1 ML VIAL IV PRN ×4 (02:59→21:08)
[2018-12-20] MEDS: ALBUTEROL/IPRATROPIUM 3 ML NEB RESP TX SCH ×6 (03:30→23:25)
[2018-12-20] MEDS: CARVEDILOL 12.5 MG TABLET PO SCH ×2 (05:08→16:56)
[2018-12-20 05:20] LABS: Basophils # 0.1 10*3/uL (0.0-0.2); Basophils % 0.5 % (0.0-0.8); Eosinophils # 0.2 10*3/uL (0.0-0.87); Eosinophils % 1.5 % (0.00-10.9); Hematocrit 21.4 VOL% (35.7-47.0); Immature Granulocytes % 0.5 %; Immature Granulocytes Absolute 0.07 #; Lymphocytes # 2.8 10*3/uL (1.4-4.0); Mean Corpuscular HGB Conc 32.7 GM/DL (32-36); Mean Corpuscular Volume 86.3 FL (87-102); Mean Platelet Volume 10.1 FL (9.6-12.0); Monocytes % 10.6 % (1.7-12.7); Neutrophils % 64.9 % (38.7-73.9); Platelet Count 224 T/CUMM (130-400); Red Blood Count 2.48 MC/CUMM (3.8-5.5); Red Cell Distribution Width 21.2 % (9.3-17.3); White Blood Count 12.9 T/CUMM (4-12)
[2018-12-20 05:22] LABS: Calcium 8.5 MG/DL (8.5-10.1); Osmolality,Calculated 292.4 MOS/KG (273-304)
[2018-12-20] MEDS ORDERED: SODIUM CHLORIDE 0.9% 1,000 ML IV PRN (08:48)
[2018-12-20] MEDS: CINACALCET 30 MG TABLET PO SCH ×2 (12:35→13:43)
[2018-12-20] MEDS: CALCIUM ACETATE 667 MG CAPSULE PO SCH ×2 (13:43→16:56)
[2018-12-20] MEDS: MONTELUKAST 10 MG TABLET PO SCH (13:43)
[2018-12-20] MEDS: FANAPT PO SCH ×2 (13:43→16:56)
[2018-12-20] MEDS: BUDESONIDE/FORMOTEROL 160-4.5 INHALER 6 GM INH SCH ×2 (13:44→21:06)
[2018-12-20] MEDS: PANTOPRAZOLE 40 MG TABLET PO SCH (13:44)
[2018-12-20] MEDS: MULTIVITAMIN (CENTRUM) TABLET PO SCH (13:44)
[2018-12-20] MEDS ORDERED: amLODIPine 2.5 MG TABLET PO SCH (17:00)
[2018-12-21] MEDS: HEPARIN 5,000 UNIT/1 ML VIAL SUBCUT SCH ×2 (02:21→08:28)
[2018-12-21] MEDS: diphenhydrAMINE 50 MG/1 ML VIAL IV PRN ×2 (03:11→13:14)
[2018-12-21] MEDS: ALBUTEROL/IPRATROPIUM 3 ML NEB RESP TX SCH ×3 (03:20→11:07)
[2018-12-21] MEDS: FANAPT PO SCH (05:38)
[2018-12-21] MEDS: CARVEDILOL 12.5 MG TABLET PO SCH (05:38)
[2018-12-21 06:06] LABS: Basophils # 0.1 10*3/uL (0.0-0.2); Basophils % 0.5 % (0.0-0.8); Eosinophils # 0.2 10*3/uL (0.0-0.87); Eosinophils % 1.6 % (0.00-10.9); Hematocrit 26.7 VOL% (35.7-47.0); Hemoglobin 8.8 GM/DL (12.0-16.0); Immature Granulocytes % 0.5 %; Immature Granulocytes Absolute 0.06 #; Lymphocytes # 2.3 10*3/uL (1.4-4.0); Lymphocytes % 19.4 % (21.3-54.2); Mean Corpuscular Volume 86.7 FL (87-102); Mean Platelet Volume 10.5 FL (9.6-12.0); Monocytes % 10.2 % (1.7-12.7); NRBC # 0.02 10*3/uL; Neutrophils % 67.8 % (38.7-73.9); Platelet Count 201 T/CUMM (130-400); Red Blood Count 3.08 MC/CUMM (3.8-5.5); Red Cell Distribution Width 19.6 % (9.3-17.3); White Blood Count 11.9 T/CUMM (4-12)
[2018-12-21 07:25] VITALS: BP 157/84
[2018-12-21] MEDS: HYDROmorphone 2 MG/1 ML VIAL IV PRN (07:33)
[2018-12-21 07:51] LABS: Calcium 8.8 MG/DL (8.5-10.1)
[2018-12-21] MEDS: MONTELUKAST 10 MG TABLET PO SCH (08:28)
[2018-12-21] MEDS: PANTOPRAZOLE 40 MG TABLET PO SCH (08:28)
[2018-12-21] MEDS: MULTIVITAMIN (CENTRUM) TABLET PO SCH (08:28)
[2018-12-21] MEDS: CALCIUM ACETATE 667 MG CAPSULE PO SCH (08:28)
[2018-12-21] MEDS: BUDESONIDE/FORMOTEROL 160-4.5 INHALER 6 GM INH SCH (08:28)
[2018-12-21] MEDS: CINACALCET 30 MG TABLET PO SCH (12:06)
[2018-12-21] MEDS ORDERED: HEPARIN LOCK FLUSH 500 UNIT/5 ML SYRINGE IV PRN (12:09)
[2018-12-21] MEDS ORDERED: HEPARIN LOCK FLUSH 500 UNIT/5 ML SYRINGE IV SCH (12:30)
== END 2018-12-21 13:31 | disposition home or self-care (01) | DRG 811 ==
LOC: N.ED 17:49 → N.EDINP 12-20 00:04 → SUPCPDRO 12-20 00:04 → N.2E 12-20 00:47
PROVIDERS: ADMIT Internal Medicine Geriatric Medicine; ATTEND Internal Medicine Geriatric Medicine

== ENCOUNTER 2019-02-06 13:28 | Inpatient (IN) ==
[2019-02-06 15:01] LABS: Basophils % 0.3 % (0.0-0.8); Eosinophils # 0.1 10*3/uL (0.0-0.87); Eosinophils % 0.9 % (0.00-10.9); Hematocrit 21.4 VOL% (35.7-47.0); Hemoglobin 7.2 GM/DL (12.0-16.0); Immature Granulocytes % 0.5 %; Immature Granulocytes Absolute 0.06 #; Lymphocytes # 2.1 10*3/uL (1.4-4.0); Lymphocytes % 18.2 % (21.3-54.2); Mean Corpuscular HGB Conc 33.6 GM/DL (32-36); Mean Corpuscular Volume 84.9 FL (87-102); Mean Platelet Volume 9.9 FL (9.6-12.0); Monocytes % 12.1 % (1.7-12.7); NRBC # 0.02 10*3/uL; Platelet Count 209 T/CUMM (130-400); Red Blood Count 2.52 MC/CUMM (3.8-5.5); Red Cell Distribution Width 17.5 % (9.3-17.3); White Blood Count 11.5 T/CUMM (4-12)
[2019-02-06] MEDS ORDERED: ONDANSETRON 4 MG/2 ML VIAL IV STA (15:10)
[2019-02-06 15:17] LABS: Albumin 3.9 G/DL (3.4-5.0); Bilirubin,Total 2.9 MG/DL (0.2-1.0); Calcium 9.6 MG/DL (8.5-10.1); Osmolality,Calculated 286.4 MOS/KG (273-304); Total Protein 8.6 G/DL (6.4-8.3)
[2019-02-06] MEDS ORDERED: HYDROmorphone 2 MG/1 ML VIAL IV STA (15:18)
[2019-02-06] MEDS ORDERED: ONDANSETRON 4 MG/2 ML VIAL IV PRN (15:52)
[2019-02-06] MEDS ORDERED: ALBUTEROL 2.5 MG/3 ML NEB RESP TX PRN (15:57)
[2019-02-06] MEDS ORDERED: ENOXAPARIN 30 MG/0.3 ML SYRINGE SUBCUT SCH (16:00)
[2019-02-06] MEDS ORDERED: ILOPERIDONE 8 MG PO SCH (17:00)
[2019-02-06] MEDS: HEPARIN 5,000 UNIT/1 ML VIAL SUBCUT SCH (17:13)
[2019-02-06] MEDS: CALCIUM ACETATE 667 MG CAPSULE PO SCH (17:13)
[2019-02-06] MEDS: carvediloL 12.5 MG TABLET PO SCH (17:13)
[2019-02-06] MEDS: HYDROmorphone 2 MG/1 ML VIAL IV PRN (22:12)
[2019-02-06] MEDS: diphenhydrAMINE CAP 25 MG CAPSULE PO PRN (22:12)
[2019-02-06] MEDS: BUDESONIDE/FORMOTEROL 160-4.5 INHALER 6 GM INH SCH (22:15)
[2019-02-07] MEDS: HEPARIN 5,000 UNIT/1 ML VIAL SUBCUT SCH ×3 (00:05→17:03)
[2019-02-07] MEDS: HYDROmorphone 2 MG/1 ML VIAL IV PRN ×4 (02:51→19:25)
[2019-02-07] MEDS: carvediloL 12.5 MG TABLET PO SCH ×2 (05:37→17:03)
[2019-02-07] MEDS: amLODIPine 10 MG TABLET PO SCH (05:37)
[2019-02-07 07:37] LABS: Basophils % 0.3 % (0.0-0.8); Eosinophils # 0.2 10*3/uL (0.0-0.87); Eosinophils % 1.5 % (0.00-10.9); Hematocrit 18.9 VOL% (35.7-47.0); Immature Granulocytes % 0.4 %; Immature Granulocytes Absolute 0.04 #; Lymphocytes # 2.2 10*3/uL (1.4-4.0); Lymphocytes % 20.9 % (21.3-54.2); Mean Corpuscular HGB Conc 32.8 GM/DL (32-36); Mean Corpuscular Volume 87.9 FL (87-102); Mean Platelet Volume 10.9 FL (9.6-12.0); Monocytes % 11.1 % (1.7-12.7); NRBC # 0.02 10*3/uL; Neutrophils % 65.8 % (38.7-73.9); Platelet Count 180 T/CUMM (130-400); Red Blood Count 2.15 MC/CUMM (3.8-5.5); Red Cell Distribution Width 18.5 % (9.3-17.3); White Blood Count 10.7 T/CUMM (4-12)
[2019-02-07 07:42] LABS: Hemoglobin 6.2 GM/DL (12.0-16.0)
[2019-02-07 07:55] LABS: Albumin 3.3 G/DL (3.4-5.0); Bilirubin,Total 1.7 MG/DL (0.2-1.0); Calcium 8.6 MG/DL (8.5-10.1); Osmolality,Calculated 286.7 MOS/KG (273-304); Total Protein 7.3 G/DL (6.4-8.3)
[2019-02-07] MEDS: MULTIVITAMIN (BEROCCA) TABLET PO SCH (13:52)
[2019-02-07] MEDS: CALCIUM ACETATE 667 MG CAPSULE PO SCH ×2 (13:52→17:03)
[2019-02-07] MEDS: MONTELUKAST 10 MG TABLET PO SCH (13:53)
[2019-02-07] MEDS: BUDESONIDE/FORMOTEROL 160-4.5 INHALER 6 GM INH SCH ×2 (13:53→21:04)
[2019-02-07] MEDS: FOLIC ACID 1 MG TABLET PO SCH (13:53)
[2019-02-07] MEDS: PANTOPRAZOLE 40 MG TABLET PO SCH (13:53)
[2019-02-07] MEDS: CINACALCET 30 MG TABLET PO SCH (13:54)
[2019-02-07] MEDS: diphenhydrAMINE CAP 25 MG CAPSULE PO PRN ×2 (14:41→21:06)
[2019-02-07 15:16] LABS: Hematocrit 26.2 VOL% (35.7-47.0); Hemoglobin 8.7 GM/DL (12.0-16.0)
[2019-02-08] MEDS: HEPARIN 5,000 UNIT/1 ML VIAL SUBCUT SCH ×3 (00:15→16:00)
[2019-02-08] MEDS: HYDROmorphone 2 MG/1 ML VIAL IV PRN ×6 (00:15→21:34)
[2019-02-08] MEDS: carvediloL 12.5 MG TABLET PO SCH ×2 (05:11→16:00)
[2019-02-08] MEDS: amLODIPine 10 MG TABLET PO SCH (05:11)
[2019-02-08] MEDS: diphenhydrAMINE CAP 25 MG CAPSULE PO PRN ×3 (05:11→17:16)
[2019-02-08 06:35] LABS: Basophils # 0.1 10*3/uL (0.0-0.2); Basophils % 0.7 % (0.0-0.8); Eosinophils # 0.1 10*3/uL (0.0-0.87); Eosinophils % 1.2 % (0.00-10.9); Hematocrit 25.5 VOL% (35.7-47.0); Hemoglobin 8.4 GM/DL (12.0-16.0); Immature Granulocytes % 0.7 %; Immature Granulocytes Absolute 0.08 #; Mean Corpuscular HGB Conc 32.9 GM/DL (32-36); Mean Corpuscular Volume 88.2 FL (87-102); Mean Platelet Volume 10.8 FL (9.6-12.0); Monocytes % 12.2 % (1.7-12.7); NRBC # 0.03 10*3/uL; Neutrophils % 60.2 % (38.7-73.9); Platelet Count 201 T/CUMM (130-400); Red Blood Count 2.89 MC/CUMM (3.8-5.5); Red Cell Distribution Width 17.6 % (9.3-17.3); White Blood Count 12.2 T/CUMM (4-12)
[2019-02-08] MEDS: BUDESONIDE/FORMOTEROL 160-4.5 INHALER 6 GM INH SCH ×2 (08:39→22:37)
[2019-02-08] MEDS: CALCIUM ACETATE 667 MG CAPSULE PO SCH ×2 (08:39→16:00)
[2019-02-08] MEDS: MONTELUKAST 10 MG TABLET PO SCH (08:39)
[2019-02-08] MEDS: FOLIC ACID 1 MG TABLET PO SCH (08:39)
[2019-02-08] MEDS: PANTOPRAZOLE 40 MG TABLET PO SCH (08:39)
[2019-02-08] MEDS: MULTIVITAMIN (BEROCCA) TABLET PO SCH (08:39)
[2019-02-08] MEDS: CINACALCET 30 MG TABLET PO SCH (11:08)
[2019-02-09] MEDS: HEPARIN 5,000 UNIT/1 ML VIAL SUBCUT SCH ×3 (00:32→16:52)
[2019-02-09 04:24] LABS: Basophils % 0.3 % (0.0-0.8); Eosinophils # 0.2 10*3/uL (0.0-0.87); Eosinophils % 1.9 % (0.00-10.9); Hematocrit 25.5 VOL% (35.7-47.0); Hemoglobin 8.4 GM/DL (12.0-16.0); Immature Granulocytes % 0.6 %; Immature Granulocytes Absolute 0.07 #; Lymphocytes # 2.4 10*3/uL (1.4-4.0); Lymphocytes % 20.4 % (21.3-54.2); Mean Corpuscular HGB Conc 32.9 GM/DL (32-36); Mean Corpuscular Volume 89.5 FL (87-102); Mean Platelet Volume 11.4 FL (9.6-12.0); NRBC # 0.05 10*3/uL; Neutrophils % 63.8 % (38.7-73.9); Platelet Count 204 T/CUMM (130-400); Red Blood Count 2.85 MC/CUMM (3.8-5.5); Red Cell Distribution Width 18.6 % (9.3-17.3); White Blood Count 11.8 T/CUMM (4-12)
[2019-02-09 05:17] LABS: Calcium 8.6 MG/DL (8.5-10.1); Osmolality,Calculated 280.2 MOS/KG (273-304)
[2019-02-09] MEDS: carvediloL 12.5 MG TABLET PO SCH ×2 (05:53→16:52)
[2019-02-09] MEDS: diphenhydrAMINE CAP 25 MG CAPSULE PO PRN (05:53)
[2019-02-09] MEDS: amLODIPine 10 MG TABLET PO SCH (05:53)
[2019-02-09] MEDS: BUDESONIDE/FORMOTEROL 160-4.5 INHALER 6 GM INH SCH (08:35)
[2019-02-09] MEDS: MONTELUKAST 10 MG TABLET PO SCH (08:37)
[2019-02-09] MEDS: CALCIUM ACETATE 667 MG CAPSULE PO SCH ×2 (08:37→16:51)
[2019-02-09] MEDS: PANTOPRAZOLE 40 MG TABLET PO SCH (08:37)
[2019-02-09] MEDS: FOLIC ACID 1 MG TABLET PO SCH (08:37)
[2019-02-09] MEDS: MULTIVITAMIN (BEROCCA) TABLET PO SCH (08:37)
[2019-02-09] MEDS ORDERED: HEPARIN 10,000 UNIT/10 ML VIAL IV SCH (12:30)
[2019-02-09] MEDS: CINACALCET 30 MG TABLET PO SCH (12:50)
[2019-02-09 15:24] VITALS: BP 156/68
== END 2019-02-09 17:58 | disposition home or self-care (01) | DRG 811 ==
LOC: N.5E 13:28 → N.ED 13:28 → N.5E 16:08
PROVIDERS: ADMIT Internal Medicine; ATTEND Internal Medicine

== ENCOUNTER 2019-03-15 19:22 | Observation (INO) ==
[2019-03-15 20:16] LABS: Basophils % 0.3 % (0.0-0.8); Eosinophils # 0.1 10*3/uL (0.0-0.87); Eosinophils % 1.1 % (0.00-10.9); Hematocrit 20.4 VOL% (35.7-47.0); Hemoglobin 7.1 GM/DL (12.0-16.0); Immature Granulocytes % 0.3 %; Immature Granulocytes Absolute 0.04 #; Lymphocytes # 2.5 10*3/uL (1.4-4.0); Lymphocytes % 21.2 % (21.3-54.2); Mean Corpuscular HGB Conc 34.8 GM/DL (32-36); Mean Corpuscular Volume 85.7 FL (87-102); Mean Platelet Volume 10.6 FL (9.6-12.0); Monocytes % 11.6 % (1.7-12.7); NRBC # 0.03 10*3/uL; Neutrophils % 65.5 % (38.7-73.9); Platelet Count 218 T/CUMM (130-400); Red Blood Count 2.38 MC/CUMM (3.8-5.5); Red Cell Distribution Width 20.4 % (9.3-17.3); White Blood Count 11.6 T/CUMM (4-12)
[2019-03-15] MEDS ORDERED: ONDANSETRON 4 MG/2 ML VIAL ONE (20:17)
[2019-03-15] MEDS ORDERED: HYDROmorphone 2 MG/1 ML VIAL ONE (20:18)
[2019-03-15 20:28] LABS: INR 1.1; PT Patient Result 11.6 SECS (9.6-12.2)
[2019-03-15 20:35] LABS: Calcium 8.3 MG/DL (8.5-10.1); Osmolality,Calculated 288.8 MOS/KG (273-304)
[2019-03-15 20:44] LABS: Partial Thromboplastin Time 129.7 SECS (20.8-36.0)
[2019-03-15] MEDS ORDERED: ONDANSETRON 4 MG/2 ML VIAL IV STA (20:45)
[2019-03-15] MEDS ORDERED: HYDROmorphone 2 MG/1 ML VIAL IV STA (20:45)
[2019-03-15] MEDS ORDERED: SODIUM CHLORIDE 0.9% 1,000 ML IV PRN (22:18)
[2019-03-15] MEDS ORDERED: NICOTINE 21 MG/24 HR PATCH TRANSDERM PRN (22:18)
[2019-03-16] MEDS: ONDANSETRON 4 MG/2 ML VIAL IV PRN ×3 (02:31→16:58)
[2019-03-16] MEDS: diphenhydrAMINE CAP 25 MG CAPSULE PO PRN ×2 (02:32→16:58)
[2019-03-16] MEDS: HYDROmorphone 2 MG/1 ML VIAL IV PRN ×6 (02:32→21:07)
[2019-03-16] MEDS ORDERED: ALBUTEROL 2.5 MG/3 ML NEB RESP TX PRN (03:00)
[2019-03-16] MEDS ORDERED: ILOPERIDONE 8 MG PO SCH (05:30)
[2019-03-16 05:49] LABS: Basophils # 0.1 10*3/uL (0.0-0.2); Basophils % 0.4 % (0.0-0.8); Eosinophils # 0.1 10*3/uL (0.0-0.87); Eosinophils % 1.2 % (0.00-10.9); Hematocrit 20.2 VOL% (35.7-47.0); Immature Granulocytes % 0.7 %; Immature Granulocytes Absolute 0.08 #; Lymphocytes # 2.3 10*3/uL (1.4-4.0); Lymphocytes % 20.2 % (21.3-54.2); Mean Corpuscular HGB Conc 34.7 GM/DL (32-36); Mean Platelet Volume 10.4 FL (9.6-12.0); Monocytes % 11.3 % (1.7-12.7); NRBC # 0.03 10*3/uL; Neutrophils % 66.2 % (38.7-73.9); Platelet Count 209 T/CUMM (130-400); Red Blood Count 2.27 MC/CUMM (3.8-5.5); Red Cell Distribution Width 21.2 % (9.3-17.3); White Blood Count 11.2 T/CUMM (4-12)
[2019-03-16] MEDS: carvediloL 12.5 MG TABLET PO SCH ×4 (07:24→16:58)
[2019-03-16] MEDS: amLODIPine 10 MG TABLET PO SCH ×3 (07:24→08:48)
[2019-03-16] MEDS: MULTIVITAMIN (BEROCCA) TABLET PO SCH (08:37)
[2019-03-16] MEDS: FOLIC ACID 1 MG TABLET PO SCH (08:38)
[2019-03-16] MEDS: MONTELUKAST 10 MG TABLET PO SCH (08:39)
[2019-03-16] MEDS: CALCIUM ACETATE 667 MG CAPSULE PO SCH ×2 (08:39→16:58)
[2019-03-16] MEDS: BUDESONIDE/FORMOTEROL 160-4.5 INHALER 6 GM INH SCH ×2 (08:40→21:10)
[2019-03-16] MEDS ORDERED: SODIUM CHLORIDE 0.9% 1,000 ML IV PRN (08:49)
[2019-03-16] MEDS ORDERED: ALUM/MAG/SIMETH/LIDO VISC 1:1 30 ML BOTTLE PO ONE (09:29)
[2019-03-16] MEDS: CINACALCET 30 MG TABLET PO SCH (14:17)
[2019-03-16 17:52] LABS: Hematocrit 26.1 VOL% (35.7-47.0); Hemoglobin 8.8 GM/DL (12.0-16.0)
[2019-03-16] MEDS: ALUMINUM/MAGNES/SIMETH MAX STR 30 ML UDCUP PO PRN (18:23)
[2019-03-16] MEDS: PANTOPRAZOLE 40 MG TABLET PO SCH (21:08)
[2019-03-17] MEDS: diphenhydrAMINE CAP 25 MG CAPSULE PO PRN ×3 (00:20→17:30)
[2019-03-17] MEDS: HYDROmorphone 2 MG/1 ML VIAL IV PRN ×5 (00:20→21:58)
[2019-03-17] MEDS: amLODIPine 10 MG TABLET PO SCH (05:51)
[2019-03-17] MEDS: carvediloL 12.5 MG TABLET PO SCH ×2 (05:51→17:22)
[2019-03-17] MEDS: CALCIUM ACETATE 667 MG CAPSULE PO SCH ×2 (07:51→17:22)
[2019-03-17] MEDS: MONTELUKAST 10 MG TABLET PO SCH (08:50)
[2019-03-17] MEDS: PANTOPRAZOLE 40 MG TABLET PO SCH ×2 (08:50→20:59)
[2019-03-17] MEDS: FOLIC ACID 1 MG TABLET PO SCH (08:50)
[2019-03-17] MEDS: MULTIVITAMIN (BEROCCA) TABLET PO SCH (08:50)
[2019-03-17] MEDS: BUDESONIDE/FORMOTEROL 160-4.5 INHALER 6 GM INH SCH ×2 (08:50→20:59)
[2019-03-17] MEDS ORDERED: hydrOXYzine HCL 25 MG TABLET PO PRN (09:05)
[2019-03-17] MEDS ORDERED: AMMONIUM LACTATE 12% CREAM 140 GM TUBE TOP SCH (09:07)
[2019-03-17] MEDS ORDERED: AMMONIUM LACTATE 12% LOTION 240 ML BOTTLE TOP SCH (10:00)
[2019-03-17] MEDS: CINACALCET 30 MG TABLET PO SCH (11:17)
[2019-03-17] MEDS: ALUMINUM/MAGNES/SIMETH MAX STR 30 ML UDCUP PO PRN (18:06)
[2019-03-17] MEDS: AMMONIUM LACTATE 12% CREAM 140 GM TUBE TOP SCH (20:59)
[2019-03-18] MEDS: carvediloL 12.5 MG TABLET PO SCH (05:43)
[2019-03-18] MEDS: amLODIPine 10 MG TABLET PO SCH (05:43)
[2019-03-18] MEDS: CALCIUM ACETATE 667 MG CAPSULE PO SCH (08:03)
[2019-03-18] MEDS: PANTOPRAZOLE 40 MG TABLET PO SCH (09:04)
[2019-03-18] MEDS: FOLIC ACID 1 MG TABLET PO SCH (09:04)
[2019-03-18] MEDS: MULTIVITAMIN (BEROCCA) TABLET PO SCH (09:04)
[2019-03-18] MEDS: MONTELUKAST 10 MG TABLET PO SCH (09:04)
[2019-03-18] MEDS: AMMONIUM LACTATE 12% CREAM 140 GM TUBE TOP SCH (09:05)
[2019-03-18] MEDS: BUDESONIDE/FORMOTEROL 160-4.5 INHALER 6 GM INH SCH (09:05)
[2019-03-18] MEDS ORDERED: HEPARIN LOCK FLUSH 500 UNIT/5 ML SYRINGE IV ONE (11:31)
[2019-03-18] MEDS: CINACALCET 30 MG TABLET PO SCH (12:00)
[2019-03-18 12:16] VITALS: BP 139/79
== END 2019-03-18 12:32 | disposition home or self-care (01) ==
LOC: N.EDINP 19:22 → N.ED 19:22 → N.4E 23:52
PROVIDERS: ADMIT Internal Medicine; ATTEND Internal Medicine

== ENCOUNTER 2019-04-03 18:13 | Inpatient (IN) ==
[2019-04-03] MEDS ORDERED: SODIUM CHLORIDE 0.9% 1,000 ML IV STA (20:56)
[2019-04-03] MEDS ORDERED: ONDANSETRON 4 MG/2 ML VIAL IV STA (21:21)
[2019-04-03] MEDS ORDERED: ORPHENADRINE 60 MG/2 ML VIAL IV STA (21:22)
[2019-04-03] MEDS ORDERED: hydrALAZINE 20 MG/1 ML VIAL IV STA (21:43)
[2019-04-03 21:55] LABS: Basophils % 0.3 % (0.0-0.8); Eosinophils # 0.1 10*3/uL (0.0-0.87); Eosinophils % 0.6 % (0.00-10.9); Hematocrit 18.5 VOL% (35.7-47.0); Immature Granulocytes % 0.4 %; Immature Granulocytes Absolute 0.05 #; Mean Corpuscular HGB Conc 33.5 GM/DL (32-36); Mean Corpuscular Volume 83.7 FL (87-102); Mean Platelet Volume 10.3 FL (9.6-12.0); Monocytes % 12.4 % (1.7-12.7); NRBC # 0.04 10*3/uL; Neutrophils % 62.3 % (38.7-73.9); Platelet Count 266 T/CUMM (130-400); Red Blood Count 2.21 MC/CUMM (3.8-5.5); White Blood Count 12.6 T/CUMM (4-12)
[2019-04-03 21:57] LABS: Hemoglobin 6.2 GM/DL (12.0-16.0)
[2019-04-03] MEDS ORDERED: HYDROmorphone 2 MG/1 ML VIAL IV STA (22:14)
[2019-04-03 22:15] LABS: Alanine Aminotransferase 87 U/L (13-56); Albumin 3.6 G/DL (3.4-5.0); Alkaline Phosphatase 282 U/L (45-117); Aspartate Amino Transferase 81 U/L (0-37); Blood Urea Nitrogen 46 MG/DL (7-18); Estimated Glom Filtration Rate 7 ML/MIN; Glucose 117 MG/DL (74-106); Osmolality,Calculated 293.3 MOS/KG (273-304); Total Protein 8.1 G/DL (6.4-8.3); Troponin I < 0.015 NG/ML (0.00-0.045)
[2019-04-04] MEDS ORDERED: ONDANSETRON 4 MG/2 ML VIAL IV PRN (00:21)
[2019-04-04] MEDS ORDERED: SODIUM CHLORIDE 0.9% 1,000 ML IV PRN (00:25)
[2019-04-04] MEDS ORDERED: GLUCAGON 1 MG VIAL IM PRN (00:26)
[2019-04-04] MEDS ORDERED: DEXTROSE 50% 25 GM/50 ML VIAL IV PRN (00:26)
[2019-04-04] MEDS ORDERED: hydrALAZINE 20 MG/1 ML VIAL IV PRN (00:27)
[2019-04-04] MEDS: HYDROmorphone 2 MG/1 ML VIAL IV PRN ×4 (02:26→19:47)
[2019-04-04] MEDS: HEPARIN 5,000 UNIT/1 ML VIAL SUBCUT SCH ×3 (02:32→18:01)
[2019-04-04] MEDS: INSULIN REGULAR 100 UNIT/ML SUBCUT SCH ×5 (02:38→20:55)
[2019-04-04] MEDS ORDERED: ALBUTEROL 2.5 MG/3 ML NEB RESP TX PRN (03:35)
[2019-04-04] MEDS ORDERED: ILOPERIDONE 8 MG PO SCH (05:30)
[2019-04-04] MEDS: amLODIPine 10 MG TABLET PO SCH (06:29)
[2019-04-04] MEDS: carvediloL 12.5 MG TABLET PO SCH ×2 (06:29→17:26)
[2019-04-04 07:19] LABS: Basophils % 0.3 % (0.0-0.8); Eosinophils # 0.1 10*3/uL (0.0-0.87); Eosinophils % 1.2 % (0.00-10.9); Immature Granulocytes % 0.5 %; Immature Granulocytes Absolute 0.05 #; Lymphocytes # 2.6 10*3/uL (1.4-4.0); Lymphocytes % 25.5 % (21.3-54.2); Mean Corpuscular HGB Conc 33.8 GM/DL (32-36); Mean Corpuscular Volume 85.3 FL (87-102); Mean Platelet Volume 9.7 FL (9.6-12.0); NRBC # 0.03 10*3/uL; Neutrophils % 60.5 % (38.7-73.9); Platelet Count 207 T/CUMM (130-400); Red Blood Count 1.84 MC/CUMM (3.8-5.5); Red Cell Distribution Width 20.4 % (9.3-17.3)
[2019-04-04 07:35] LABS: Albumin 3.3 G/DL (3.4-5.0); Bilirubin,Total 1.8 MG/DL (0.2-1.0); Calcium 8.9 MG/DL (8.5-10.1); Osmolality,Calculated 291.5 MOS/KG (273-304); Total Protein 7.6 G/DL (6.4-8.3)
[2019-04-04 07:40] LABS: Hematocrit 15.7 VOL% (35.7-47.0); Hemoglobin 5.3 GM/DL (12.0-16.0)
[2019-04-04] MEDS: MONTELUKAST 10 MG TABLET PO SCH (08:49)
[2019-04-04] MEDS: CALCIUM ACETATE 667 MG CAPSULE PO SCH ×2 (08:49→17:26)
[2019-04-04] MEDS: MULTIVITAMIN (BEROCCA) TABLET PO SCH (08:49)
[2019-04-04] MEDS: PANTOPRAZOLE 40 MG TABLET PO SCH (08:49)
[2019-04-04] MEDS: FOLIC ACID 1 MG TABLET PO SCH (08:49)
[2019-04-04] MEDS: BUDESONIDE/FORMOTEROL 160-4.5 INHALER 6 GM INH SCH (08:50)
[2019-04-04] MEDS: AMMONIUM LACTATE 12% CREAM 140 GM TUBE TOP SCH ×2 (10:38→20:55)
[2019-04-04] MEDS ORDERED: diphenhydrAMINE CAP 25 MG CAPSULE PO PRN (11:42)
[2019-04-04] MEDS ORDERED: diphenhydrAMINE 50 MG/1 ML VIAL IM ONE (11:42)
[2019-04-04] MEDS ORDERED: CINACALCET 30 MG TABLET PO SCH (12:00)
[2019-04-05] MEDS: HEPARIN 5,000 UNIT/1 ML VIAL SUBCUT SCH ×2 (01:32→10:27)
[2019-04-05] MEDS: BUDESONIDE/FORMOTEROL 160-4.5 INHALER 6 GM INH SCH ×2 (03:05→08:46)
[2019-04-05] MEDS: amLODIPine 10 MG TABLET PO SCH (05:39)
[2019-04-05] MEDS: carvediloL 12.5 MG TABLET PO SCH (05:39)
[2019-04-05 06:47] LABS: Hematocrit 24.8 VOL% (35.7-47.0)
[2019-04-05 06:51] LABS: Hemoglobin 8.2 GM/DL (12.0-16.0)
[2019-04-05] MEDS: CALCIUM ACETATE 667 MG CAPSULE PO SCH (08:44)
[2019-04-05] MEDS: FOLIC ACID 1 MG TABLET PO SCH (08:44)
[2019-04-05] MEDS: PANTOPRAZOLE 40 MG TABLET PO SCH (08:44)
[2019-04-05] MEDS: MULTIVITAMIN (BEROCCA) TABLET PO SCH (08:44)
[2019-04-05] MEDS: MONTELUKAST 10 MG TABLET PO SCH (08:44)
[2019-04-05] MEDS: AMMONIUM LACTATE 12% CREAM 140 GM TUBE TOP SCH (08:45)
[2019-04-05] MEDS: INSULIN REGULAR 100 UNIT/ML SUBCUT SCH (08:46)
[2019-04-05 12:00] VITALS: BP 119/54
== END 2019-04-05 15:30 | disposition home or self-care (01) | DRG 811 ==
LOC: N.ED 18:13 → N.EDINP 04-04 00:21 → N.5E 04-04 01:25
PROVIDERS: ADMIT Internal Medicine; ATTEND Internal Medicine

== ENCOUNTER 2019-06-30 18:52 | Inpatient (IN) ==
[2019-06-30] MEDS ORDERED: SODIUM CHLORIDE 0.9% 500 ML IV STA (19:44)
[2019-06-30] MEDS ORDERED: HYDROmorphone 2 MG/1 ML VIAL IV STA (19:46)
[2019-06-30] MEDS ORDERED: ONDANSETRON 4 MG/2 ML VIAL IV ONE (19:46)
[2019-06-30 19:54] LABS: Basophils % 0.3 % (0.0-0.8); Eosinophils % 0.4 % (0.00-10.9); Hematocrit 19.8 VOL% (35.7-47.0); Immature Granulocytes % 0.4 %; Immature Granulocytes Absolute 0.04 #; Lymphocytes # 1.8 10*3/uL (1.4-4.0); Mean Corpuscular HGB Conc 35.4 GM/DL (32-36); Mean Corpuscular Volume 82.5 FL (87-102); Mean Platelet Volume 9.4 FL (9.6-12.0); Monocytes % 11.1 % (1.7-12.7); NRBC # 0.07 10*3/uL; Neutrophils % 70.8 % (38.7-73.9); Platelet Count 225 T/CUMM (130-400); Red Cell Distribution Width 19.9 % (9.3-17.3); White Blood Count 10.7 T/CUMM (4-12)
[2019-06-30 20:33] LABS: Albumin 3.1 G/DL (3.4-5.0); Bilirubin,Total 2.8 MG/DL (0.2-1.0); Calcium 7.3 MG/DL (8.5-10.1); Osmolality,Calculated 274.1 MOS/KG (273-304); Total Protein 6.9 G/DL (6.4-8.3)
[2019-06-30] MEDS ORDERED: diphenhydrAMINE 50 MG/1 ML VIAL ONE (20:37)
[2019-06-30] MEDS ORDERED: diphenhydrAMINE 50 MG/1 ML VIAL IV STA (20:40)
[2019-07-01] MEDS ORDERED: SODIUM CHLORIDE 0.9% 250 ML IV SCH (01:25)
[2019-07-01] MEDS: BUDESONIDE/FORMOTEROL 160-4.5 INHALER 6 GM INH SCH ×3 (01:54→21:54)
[2019-07-01] MEDS: HYDROmorphone 2 MG/1 ML VIAL IV PRN ×6 (01:55→23:45)
[2019-07-01] MEDS: diphenhydrAMINE CAP 25 MG CAPSULE PO PRN ×4 (01:55→23:45)
[2019-07-01] MEDS: amLODIPine 10 MG TABLET PO SCH (05:35)
[2019-07-01] MEDS: carvediloL 12.5 MG TABLET PO SCH ×2 (05:35→16:43)
[2019-07-01 06:30] LABS: Basophils % 0.1 % (0.0-0.8); Eosinophils % 0.1 % (0.00-10.9); Hematocrit 19.3 VOL% (35.7-47.0); Hemoglobin 6.8 GM/DL (12.0-16.0); Immature Granulocytes % 0.8 %; Immature Granulocytes Absolute 0.12 #; Lymphocytes # 1.8 10*3/uL (1.4-4.0); Lymphocytes % 12.2 % (21.3-54.2); Mean Corpuscular HGB Conc 35.2 GM/DL (32-36); Mean Corpuscular Volume 82.8 FL (87-102); Mean Platelet Volume 10.4 FL (9.6-12.0); Monocytes % 10.6 % (1.7-12.7); NRBC # 0.08 10*3/uL; Neutrophils % 76.2 % (38.7-73.9); Platelet Count 200 T/CUMM (130-400); Red Blood Count 2.33 MC/CUMM (3.8-5.5); Red Cell Distribution Width 19.9 % (9.3-17.3); White Blood Count 14.3 T/CUMM (4-12)
[2019-07-01 06:54] LABS: Osmolality,Calculated 284.5 MOS/KG (273-304)
[2019-07-01] MEDS: PANTOPRAZOLE 40 MG TABLET PO SCH (08:46)
[2019-07-01] MEDS: CALCIUM ACETATE 667 MG CAPSULE PO SCH ×2 (08:46→16:43)
[2019-07-01] MEDS: FOLIC ACID 1 MG TABLET PO SCH (08:46)
[2019-07-01] MEDS ORDERED: SODIUM CHLORIDE 0.9% 1,000 ML IV PRN ×3 (09:27→15:20)
[2019-07-01] MEDS ORDERED: diphenhydrAMINE 50 MG/1 ML VIAL IV ONE (11:38)
[2019-07-01] MEDS: CINACALCET 30 MG TABLET PO SCH (12:04)
[2019-07-01] MEDS: cefTRIAXone 1,000 MG in SYRINGE 1 EACH IV SCH (12:04)
[2019-07-02 05:11] LABS: Basophils # 0.1 10*3/uL (0.0-0.2); Basophils % 0.4 % (0.0-0.8); Eosinophils # 0.1 10*3/uL (0.0-0.87); Eosinophils % 0.6 % (0.00-10.9); Hematocrit 21.5 VOL% (35.7-47.0); Hemoglobin 7.4 GM/DL (12.0-16.0); Immature Granulocytes % 0.9 %; Immature Granulocytes Absolute 0.13 #; Lymphocytes # 2.7 10*3/uL (1.4-4.0); Lymphocytes % 18.5 % (21.3-54.2); Mean Corpuscular HGB Conc 34.4 GM/DL (32-36); Mean Corpuscular Volume 82.7 FL (87-102); Mean Platelet Volume 10.4 FL (9.6-12.0); Monocytes % 10.8 % (1.7-12.7); NRBC # 0.25 10*3/uL; Neutrophils % 68.8 % (38.7-73.9); Platelet Count 217 T/CUMM (130-400); Red Cell Distribution Width 19.4 % (9.3-17.3); White Blood Count 14.6 T/CUMM (4-12)
[2019-07-02 05:24] LABS: Calcium 7.3 MG/DL (8.5-10.1); Osmolality,Calculated 277.2 MOS/KG (273-304)
[2019-07-02] MEDS: diphenhydrAMINE CAP 25 MG CAPSULE PO PRN (06:41)
[2019-07-02] MEDS: amLODIPine 10 MG TABLET PO SCH (06:41)
[2019-07-02] MEDS: carvediloL 12.5 MG TABLET PO SCH ×2 (06:42→17:06)
[2019-07-02] MEDS ORDERED: SODIUM CHLORIDE 0.9% 1,000 ML IV PRN (07:25)
[2019-07-02] MEDS: CALCIUM ACETATE 667 MG CAPSULE PO SCH ×2 (12:49→17:05)
[2019-07-02] MEDS: PANTOPRAZOLE 40 MG TABLET PO SCH (12:50)
[2019-07-02] MEDS: BUDESONIDE/FORMOTEROL 160-4.5 INHALER 6 GM INH SCH (12:50)
[2019-07-02] MEDS: FOLIC ACID 1 MG TABLET PO SCH (12:50)
[2019-07-02] MEDS: CINACALCET 30 MG TABLET PO SCH (13:47)
[2019-07-02] MEDS: cefTRIAXone 1,000 MG in SYRINGE 1 EACH IV SCH (13:47)
[2019-07-02] MEDS: fentaNYL 100 MCG/2 ML VIAL IV PRN ×4 (13:53→22:03)
[2019-07-03] MEDS: BUDESONIDE/FORMOTEROL 160-4.5 INHALER 6 GM INH SCH ×2 (05:06→10:34)
[2019-07-03 05:15] LABS: Basophils % 0.4 % (0.0-0.8); Eosinophils # 0.1 10*3/uL (0.0-0.87); Eosinophils % 1.3 % (0.00-10.9); Hematocrit 26.8 VOL% (35.7-47.0); Hemoglobin 9.2 GM/DL (12.0-16.0); Immature Granulocytes % 0.8 %; Immature Granulocytes Absolute 0.08 #; Lymphocytes # 1.6 10*3/uL (1.4-4.0); Lymphocytes % 15.7 % (21.3-54.2); Mean Corpuscular HGB Conc 34.3 GM/DL (32-36); Mean Corpuscular Volume 84.3 FL (87-102); Mean Platelet Volume 11.4 FL (9.6-12.0); Monocytes % 13.1 % (1.7-12.7); NRBC # 0.63 10*3/uL; Neutrophils % 68.7 % (38.7-73.9); Platelet Count 222 T/CUMM (130-400); Red Blood Count 3.18 MC/CUMM (3.8-5.5); Red Cell Distribution Width 19.8 % (9.3-17.3); White Blood Count 10.4 T/CUMM (4-12)
[2019-07-03 05:33] LABS: Albumin 2.8 G/DL (3.4-5.0); Bilirubin,Direct 1.22 MG/DL (0.0-0.20); Bilirubin,Indirect 1.4 MG/DL (0.0-1.0); Bilirubin,Total 2.6 MG/DL (0.2-1.0); Total Protein 6.4 G/DL (6.4-8.3)
[2019-07-03 05:34] LABS: Albumin 2.8 G/DL (3.4-5.0); Bilirubin,Total 2.1 MG/DL (0.2-1.0); Calcium 7.6 MG/DL (8.5-10.1); Osmolality,Calculated 273.1 MOS/KG (273-304); Total Protein 6.7 G/DL (6.4-8.3)
[2019-07-03] MEDS: carvediloL 12.5 MG TABLET PO SCH (06:15)
[2019-07-03] MEDS: fentaNYL 100 MCG/2 ML VIAL IV PRN (06:15)
[2019-07-03] MEDS: amLODIPine 10 MG TABLET PO SCH (06:15)
[2019-07-03 07:41] VITALS: BP 148/68
[2019-07-03] MEDS: FOLIC ACID 1 MG TABLET PO SCH (08:41)
[2019-07-03] MEDS: PANTOPRAZOLE 40 MG TABLET PO SCH (08:41)
[2019-07-03] MEDS: CALCIUM ACETATE 667 MG CAPSULE PO SCH (08:41)
[2019-07-03] MEDS ORDERED: HEPARIN LOCK FLUSH 500 UNIT/5 ML SYRINGE IV ONE (10:06)
== END 2019-07-03 11:15 | disposition home or self-care (01) | DRG 811 ==
LOC: N.EDINP 18:52 → N.ED 18:52 → SUATTDRO 23:45 → N.5E 07-01 00:52 → N.4E 07-02 13:34
PROVIDERS: ADMIT Family Medicine; ATTEND Internal Medicine

== ENCOUNTER 2019-07-23 23:48 | Inpatient (IN) ==
[2019-07-24] MEDS ORDERED: SODIUM CHLORIDE 0.9% 500 ML IV STA (00:10)
[2019-07-24] MEDS ORDERED: MEPERIDINE 50 MG/1 ML VIAL IV STA (00:10)
[2019-07-24] MEDS ORDERED: ONDANSETRON 4 MG/2 ML VIAL IV ONE (00:11)
[2019-07-24 00:47] LABS: Basophils % 0.3 % (0.0-0.8); Eosinophils # 0.1 10*3/uL (0.0-0.87); Eosinophils % 0.8 % (0.00-10.9); Immature Granulocytes % 0.5 %; Immature Granulocytes Absolute 0.06 #; Lymphocytes # 1.7 10*3/uL (1.4-4.0); Lymphocytes % 14.4 % (21.3-54.2); Mean Corpuscular HGB Conc 35.1 GM/DL (32-36); Mean Corpuscular Volume 81.7 FL (87-102); Monocytes % 11.6 % (1.7-12.7); NRBC # 0.14 10*3/uL; Neutrophils % 72.4 % (38.7-73.9); Platelet Count 242 T/CUMM (130-400); Red Blood Count 2.13 MC/CUMM (3.8-5.5); White Blood Count 11.7 T/CUMM (4-12)
[2019-07-24 00:56] LABS: Hemoglobin 6.1 GM/DL (12.0-16.0)
[2019-07-24 00:57] LABS: Hematocrit 17.4 VOL% (35.7-47.0)
[2019-07-24 01:10] LABS: Bilirubin,Total 3.4 MG/DL (0.2-1.0); Calcium 7.8 MG/DL (8.5-10.1); Osmolality,Calculated 274.1 MOS/KG (273-304); Total Protein 6.8 G/DL (6.4-8.3)
[2019-07-24] MEDS ORDERED: SODIUM CHLORIDE 0.9% 1,000 ML IV PRN ×2 (03:11→07:12)
[2019-07-24] MEDS ORDERED: hydrALAZINE 20 MG/1 ML VIAL IV PRN (03:11)
[2019-07-24] MEDS ORDERED: ACETAMINOPHEN 325 MG TABLET PO PRN (03:11)
[2019-07-24] MEDS ORDERED: DOCUSATE SODIUM 100 MG CAPSULE PO PRN (03:11)
[2019-07-24] MEDS ORDERED: NALOXONE 0.4 MG/ML VIAL IV PRN (03:11)
[2019-07-24] MEDS: diphenhydrAMINE CAP 25 MG CAPSULE PO PRN ×3 (04:08→19:47)
[2019-07-24] MEDS: HYDROmorphone PCA 30 MG/30 ML SYRINGE IV SCH (04:58)
[2019-07-24] MEDS ORDERED: ALBUTEROL 2.5 MG/3 ML NEB RESP TX PRN (07:52)
[2019-07-24] MEDS ORDERED: AMMONIUM LACTATE 12% CREAM 140 GM TUBE TOP SCH (09:00)
[2019-07-24] MEDS: diphenhydrAMINE 50 MG/1 ML VIAL IV PRN ×2 (09:00→15:01)
[2019-07-24] MEDS: FOLIC ACID 1 MG TABLET PO SCH (09:21)
[2019-07-24] MEDS: MULTIVITAMIN (BEROCCA) TABLET PO SCH (09:21)
[2019-07-24] MEDS: PANTOPRAZOLE 40 MG TABLET PO SCH (09:21)
[2019-07-24] MEDS: CALCIUM ACETATE 667 MG CAPSULE PO SCH ×2 (09:21→16:31)
[2019-07-24] MEDS: BUDESONIDE/FORMOTEROL 160-4.5 INHALER 6 GM INH SCH ×2 (09:22→22:46)
[2019-07-24] MEDS: ONDANSETRON 4 MG/2 ML VIAL IV PRN ×2 (11:44→16:36)
[2019-07-24] MEDS: CINACALCET 30 MG TABLET PO SCH (12:16)
[2019-07-24 14:15] LABS: Hematocrit 26.2 VOL% (35.7-47.0)
[2019-07-24] MEDS: carvediloL 12.5 MG TABLET PO SCH (16:31)
[2019-07-24] MEDS ORDERED: ILOPERIDONE 8 MG PO SCH (17:00)
[2019-07-24] MEDS: AMMONIUM LACTATE 12% CREAM 140 GM TUBE TOP SCH (22:46)
[2019-07-25] MEDS ORDERED: HYDROmorphone PCA 30 MG/30 ML SYRINGE IV SCH (03:00)
[2019-07-25] MEDS: HYDROmorphone PCA 30 MG/30 ML SYRINGE IV SCH (04:22)
[2019-07-25] MEDS: amLODIPine 10 MG TABLET PO SCH (07:06)
[2019-07-25] MEDS: carvediloL 12.5 MG TABLET PO SCH ×2 (07:06→16:45)
[2019-07-25] MEDS: FOLIC ACID 1 MG TABLET PO SCH (08:28)
[2019-07-25] MEDS: PANTOPRAZOLE 40 MG TABLET PO SCH (08:28)
[2019-07-25] MEDS: MULTIVITAMIN (BEROCCA) TABLET PO SCH (08:28)
[2019-07-25] MEDS: CALCIUM ACETATE 667 MG CAPSULE PO SCH ×2 (08:28→18:02)
[2019-07-25] MEDS: AMMONIUM LACTATE 12% CREAM 140 GM TUBE TOP SCH ×2 (08:38→23:35)
[2019-07-25 09:00] LABS: Basophils # 0.1 10*3/uL (0.0-0.2); Basophils % 0.2 % (0.0-0.8); Hematocrit 26.8 VOL% (35.7-47.0); Hemoglobin 8.9 GM/DL (12.0-16.0); Immature Granulocytes % 4.5 %; Immature Granulocytes Absolute 1.04 #; Lymphocytes # 2.1 10*3/uL (1.4-4.0); Lymphocytes % 8.9 % (21.3-54.2); Mean Corpuscular HGB Conc 33.2 GM/DL (32-36); Mean Corpuscular Volume 83.2 FL (87-102); Monocytes % 11.5 % (1.7-12.7); NRBC # 0.42 10*3/uL; Neutrophils % 74.9 % (38.7-73.9); Platelet Count 207 T/CUMM (130-400); Red Blood Count 3.22 MC/CUMM (3.8-5.5); White Blood Count 23.3 T/CUMM (4-12)
[2019-07-25 09:19] LABS: Albumin 2.8 G/DL (3.4-5.0); Calcium 7.6 MG/DL (8.5-10.1); Osmolality,Calculated 277.4 MOS/KG (273-304); Total Protein 6.7 G/DL (6.4-8.3)
[2019-07-25 09:23] LABS: Band Neutrophils 3 % (0-10); Elliptocytes Few; Hypochromasia 1+; Lymphocytes 5 % (20-55); Macrocytosis Slight; Nucleated Red Blood Cells 2 (0-5); Platelet Estimate Adequate; Polychromasia Slight; Segmented Neutrophils 84 % (50-85); Sickle Cells Few; Target Cells Few; Total Cells Counted 100
[2019-07-25 11:08] LABS: Bilirubin,Direct 9.34 MG/DL (0.0-0.20); Bilirubin,Total 11.8 MG/DL (0.2-1.0)
[2019-07-25] MEDS: BUDESONIDE/FORMOTEROL 160-4.5 INHALER 6 GM INH SCH ×2 (13:47→23:35)
[2019-07-25] MEDS: CINACALCET 30 MG TABLET PO SCH (13:49)
[2019-07-26] MEDS: carvediloL 12.5 MG TABLET PO SCH (06:10)
[2019-07-26] MEDS: amLODIPine 10 MG TABLET PO SCH (06:10)
[2019-07-26 06:12] LABS: Basophils % 0.1 % (0.0-0.8); Eosinophils % 0.1 % (0.00-10.9); Hematocrit 22.9 VOL% (35.7-47.0); Hemoglobin 8.1 GM/DL (12.0-16.0); Immature Granulocytes Absolute 0.34 #; Lymphocytes # 1.5 10*3/uL (1.4-4.0); Mean Corpuscular HGB Conc 35.4 GM/DL (32-36); Mean Corpuscular Volume 78.7 FL (87-102); Mean Platelet Volume 11.5 FL (9.6-12.0); Monocytes % 11.4 % (1.7-12.7); NRBC # 0.94 10*3/uL; Neutrophils % 77.4 % (38.7-73.9); Platelet Count 266 T/CUMM (130-400); Red Blood Count 2.91 MC/CUMM (3.8-5.5); Red Cell Distribution Width 22.4 % (9.3-17.3)
[2019-07-26 06:29] LABS: Hypochromasia 1+; Macrocytosis Slight; Ovalocytes Slight; Platelet Estimate Adequate; Polychromasia Slight; Sickle Cells Few; Target Cells Few
[2019-07-26] MEDS ORDERED: SODIUM CHLORIDE 0.9% 1,000 ML IV PRN (07:21)
[2019-07-26] MEDS ORDERED: HYDROmorphone 2 MG/1 ML VIAL IV PRN (09:01)
[2019-07-26] MEDS: AMMONIUM LACTATE 12% CREAM 140 GM TUBE TOP SCH ×2 (10:45→21:07)
[2019-07-26] MEDS: MULTIVITAMIN (BEROCCA) TABLET PO SCH (10:45)
[2019-07-26] MEDS: CALCIUM ACETATE 667 MG CAPSULE PO SCH ×2 (10:45→17:29)
[2019-07-26] MEDS: PANTOPRAZOLE 40 MG TABLET PO SCH (10:45)
[2019-07-26] MEDS: FOLIC ACID 1 MG TABLET PO SCH (10:45)
[2019-07-26] MEDS: BUDESONIDE/FORMOTEROL 160-4.5 INHALER 6 GM INH SCH ×2 (10:46→21:07)
[2019-07-26] MEDS ORDERED: amLODIPine 5 MG TABLET PO SCH (13:21)
[2019-07-26 15:52] LABS: Hepatitis B Core IgM Quant 0.12 Index; Hepatitis B Surface Ag Quant < 0.10 Index; Hepatitis B Surface Ag Result Negative (Negative)
[2019-07-26] MEDS: carvediloL 6.25 MG TABLET PO SCH (17:29)
[2019-07-26] MEDS: CINACALCET 30 MG TABLET PO SCH (17:45)
[2019-07-26] MEDS: diphenhydrAMINE 50 MG/1 ML VIAL IV PRN (21:05)
[2019-07-27 05:07] LABS: Basophils % 0.3 % (0.0-0.8); Eosinophils % 0.3 % (0.00-10.9); Hematocrit 22.6 VOL% (35.7-47.0); Hemoglobin 7.9 GM/DL (12.0-16.0); Immature Granulocytes % 1.5 %; Immature Granulocytes Absolute 0.21 #; Lymphocytes # 1.6 10*3/uL (1.4-4.0); Mean Corpuscular Volume 76.6 FL (87-102); Mean Platelet Volume 9.9 FL (9.6-12.0); Monocytes % 12.7 % (1.7-12.7); NRBC # 2.33 10*3/uL; Neutrophils % 73.2 % (38.7-73.9); Platelet Count 261 T/CUMM (130-400); Red Blood Count 2.95 MC/CUMM (3.8-5.5); Red Cell Distribution Width 23.7 % (9.3-17.3); White Blood Count 13.6 T/CUMM (4-12)
[2019-07-27 05:46] LABS: Albumin 2.7 G/DL (3.4-5.0); Calcium 7.8 MG/DL (8.5-10.1); Osmolality,Calculated 281.7 MOS/KG (273-304); Total Protein 6.5 G/DL (6.4-8.3)
[2019-07-27 05:56] LABS: Acanthocytes 1+; Anisocytosis 1+; Band Neutrophils 1 % (0-10); Eosinophils 2 % (0-10); Hypochromasia 1+; Lymphocytes 16 % (20-55); Nucleated Red Blood Cells 21 (0-5); Segmented Neutrophils 68 % (50-85); Total Cells Counted 100
[2019-07-27 05:57] LABS: Ovalocytes 1+; Platelet Estimate Normal; Sickle Cells 1+; Target Cells 2+
[2019-07-27] MEDS: carvediloL 6.25 MG TABLET PO SCH ×2 (06:57→16:58)
[2019-07-27] MEDS: CALCIUM ACETATE 667 MG CAPSULE PO SCH ×2 (08:39→16:57)
[2019-07-27] MEDS: MULTIVITAMIN (BEROCCA) TABLET PO SCH (08:39)
[2019-07-27] MEDS: PANTOPRAZOLE 40 MG TABLET PO SCH (08:40)
[2019-07-27] MEDS: FOLIC ACID 1 MG TABLET PO SCH (08:40)
[2019-07-27] MEDS: BUDESONIDE/FORMOTEROL 160-4.5 INHALER 6 GM INH SCH (08:40)
[2019-07-27] MEDS: AMMONIUM LACTATE 12% CREAM 140 GM TUBE TOP SCH (08:45)
[2019-07-27] MEDS ORDERED: SODIUM CHLORIDE 0.9% 1,000 ML IV PRN (09:49)
[2019-07-27] MEDS: diphenhydrAMINE 50 MG/1 ML VIAL IV PRN (13:50)
[2019-07-27] MEDS: CINACALCET 30 MG TABLET PO SCH (13:50)
[2019-07-27] MEDS ORDERED: HEPARIN LOCK FLUSH 500 UNIT/5 ML SYRINGE IV ONE (19:12)
[2019-07-27 19:45] VITALS: BP 109/67
== END 2019-07-27 19:36 | disposition home or self-care (01) | DRG 811 ==
LOC: N.ED 23:48 → N.EDINP 07-24 02:26 → SUATTDRO 07-24 02:26 → N.ICU 07-24 02:48 → N.5E 07-24 15:39 → N.4E 07-26 12:23
PROVIDERS: ADMIT Emergency Medicine; ATTEND Internal Medicine

== ENCOUNTER 2019-10-09 16:18 | Inpatient (IN) ==
[2019-10-09 18:18] LABS: Basophils % 0.3 % (0.0-0.8); Eosinophils # 0.1 10*3/uL (0.0-0.87); Eosinophils % 0.7 % (0.00-10.9); Immature Granulocytes % 1.2 %; Immature Granulocytes Absolute 0.14 #; Lymphocytes # 1.8 10*3/uL (1.4-4.0); Lymphocytes % 15.1 % (21.3-54.2); Mean Corpuscular Volume 76.6 FL (87-102); Monocytes % 11.3 % (1.7-12.7); Neutrophils % 71.4 % (38.7-73.9); Platelet Count 264 T/CUMM (130-400); Red Blood Count 2.31 MC/CUMM (3.8-5.5); Red Cell Distribution Width 31.7 % (9.3-17.3); White Blood Count 12.1 T/CUMM (4-12)
[2019-10-09 18:21] LABS: Hemoglobin 6.2 GM/DL (12.0-16.0)
[2019-10-09 18:22] LABS: Hematocrit 17.7 VOL% (35.7-47.0)
[2019-10-09 18:27] LABS: INR 1.1; PT Patient Result 11.3 SECS (9.8-11.9)
[2019-10-09 18:39] LABS: Band Neutrophils 2 % (0-10); Lymphocytes 17 % (20-55); Nucleated Red Blood Cells 8 (0-5); Platelet Estimate Normal; Segmented Neutrophils 74 % (50-85); Total Cells Counted 100
[2019-10-09 18:40] LABS: Polychromasia 2+
[2019-10-09 18:41] LABS: Elliptocytes 1+; Hypochromasia 1+; Microcytosis 1+; Sickle Cells 1+
[2019-10-09 18:42] LABS: Target Cells 1+
[2019-10-09 19:05] LABS: Alanine Aminotransferase 64 U/L (13-56); Albumin 2.6 G/DL (3.4-5.0); Alkaline Phosphatase 312 U/L (45-117); Aspartate Amino Transferase 109 U/L (0-37); Blood Urea Nitrogen 25 MG/DL (7-18); Calcium 8.9 MG/DL (8.5-10.1); Estimated Glom Filtration Rate 12 ML/MIN; Ferritin 9658.9 ng/ml (8-252); Glucose 105 MG/DL (74-106); Osmolality,Calculated 269.4 MOS/KG (273-304); Total Protein 7.3 G/DL (6.4-8.3)
[2019-10-09 19:07] LABS: Troponin I 0.069 NG/ML (0.00-0.045)
[2019-10-09] MEDS ORDERED: hydrALAZINE 20 MG/1 ML VIAL IV PRN (20:13)
[2019-10-09] MEDS ORDERED: ACETAMINOPHEN 325 MG TABLET PO PRN (20:13)
[2019-10-09] MEDS ORDERED: NICOTINE 21 MG/24 HR PATCH TRANSDERM PRN (20:13)
[2019-10-09] MEDS ORDERED: DEXTROSE 10% 250 ML BAG IV PRN (20:13)
[2019-10-09] MEDS ORDERED: GLUCAGON 1 MG VIAL IM PRN (20:13)
[2019-10-09] MEDS ORDERED: SODIUM CHLORIDE 0.9% 1,000 ML IV PRN (20:13)
[2019-10-09] MEDS: HYDROmorphone 2 MG/1 ML VIAL IV PRN (22:26)
[2019-10-09] MEDS: ONDANSETRON 4 MG/2 ML VIAL IV PRN (22:27)
[2019-10-10] MEDS: ONDANSETRON 4 MG/2 ML VIAL IV PRN ×2 (03:18→11:00)
[2019-10-10] MEDS: HYDROmorphone 2 MG/1 ML VIAL IV PRN ×2 (03:23→09:05)
[2019-10-10] MEDS: carvediloL 6.25 MG TABLET PO SCH ×2 (05:29→17:40)
[2019-10-10] MEDS ORDERED: SODIUM CHLORIDE 0.9% 1,000 ML IV PRN ×2 (07:44→13:47)
[2019-10-10] MEDS ORDERED: POTASSIUM CHLORIDE 20 MEQ TABLET PO ONE ×2 (08:00→14:00)
[2019-10-10 08:58] LABS: Basophils % 0.3 % (0.0-0.8); Eosinophils % 0.3 % (0.00-10.9); Hematocrit 22.4 VOL% (35.7-47.0); Hemoglobin 7.6 GM/DL (12.0-16.0); Immature Granulocytes % 0.9 %; Lymphocytes # 1.3 10*3/uL (1.4-4.0); Lymphocytes % 11.9 % (21.3-54.2); Mean Corpuscular HGB Conc 33.9 GM/DL (32-36); Mean Corpuscular Volume 79.7 FL (87-102); Monocytes % 9.4 % (1.7-12.7); Neutrophils % 77.2 % (38.7-73.9); Platelet Count 241 T/CUMM (130-400); Red Blood Count 2.81 MC/CUMM (3.8-5.5); Red Cell Distribution Width 29.5 % (9.3-17.3); White Blood Count 11.2 T/CUMM (4-12)
[2019-10-10] MEDS ORDERED: Budesonide-Formoterol [Symbicort] 2 PUFF INH SCH (09:00)
[2019-10-10] MEDS: FOLIC ACID 1 MG TABLET PO SCH (09:05)
[2019-10-10] MEDS: amLODIPine 10 MG TABLET PO SCH (09:05)
[2019-10-10] MEDS: CALCIUM ACETATE 667 MG CAPSULE PO SCH ×2 (09:05→12:56)
[2019-10-10 09:17] LABS: Band Neutrophils 1 % (0-10); Eosinophils 1 % (0-10); Hypochromasia 1+; Lymphocytes 13 % (20-55); Nucleated Red Blood Cells 3 (0-5); Platelet Estimate Adequate; Segmented Neutrophils 78 % (50-85); Target Cells Few; Total Cells Counted 100
[2019-10-10 09:18] LABS: Microcytosis 1+
[2019-10-10] MEDS: CINACALCET 30 MG TABLET PO SCH (12:56)
[2019-10-10] MEDS ORDERED: NALOXONE 0.4 MG/ML VIAL IV PRN ×3 (13:18→13:48)
[2019-10-10] MEDS ORDERED: HYDROmorphone PCA 30 MG/30 ML SYRINGE IV SCH ×3 (13:30→14:30)
[2019-10-10] MEDS ORDERED: HYDROmorphone 2 MG/1 ML VIAL IV PRN (13:43)
[2019-10-10] MEDS: cefTRIAXone 1,000 MG in SYRINGE 1 EACH IV SCH (15:25)
[2019-10-10] MEDS ORDERED: hydrOXYzine HCL 25 MG TABLET PO ONE (16:09)
[2019-10-10] MEDS ORDERED: ALUM/MAG/SIMETH/LIDO VISC 1:1 30 ML BOTTLE PO ONE (17:12)
[2019-10-10] MEDS: SEVELAMER CARBONATE 800 MG TABLET PO SCH (17:40)
[2019-10-11] MEDS: ONDANSETRON 4 MG/2 ML VIAL IV PRN ×2 (00:46→08:57)
[2019-10-11 04:53] LABS: Basophils % 0.2 % (0.0-0.8); Eosinophils # 0.1 10*3/uL (0.0-0.87); Eosinophils % 0.4 % (0.00-10.9); Hematocrit 26.4 VOL% (35.7-47.0); Hemoglobin 8.9 GM/DL (12.0-16.0); Immature Granulocytes % 1.7 %; Immature Granulocytes Absolute 0.23 #; Lymphocytes # 1.1 10*3/uL (1.4-4.0); Lymphocytes % 8.3 % (21.3-54.2); Mean Corpuscular HGB Conc 33.7 GM/DL (32-36); Mean Corpuscular Volume 80.7 FL (87-102); Monocytes % 8.4 % (1.7-12.7); Platelet Count 224 T/CUMM (130-400); Red Blood Count 3.27 MC/CUMM (3.8-5.5); Red Cell Distribution Width 27.5 % (9.3-17.3); White Blood Count 13.4 T/CUMM (4-12)
[2019-10-11 05:35] LABS: Albumin 2.7 G/DL (3.4-5.0); Bilirubin,Total 9.1 MG/DL (0.2-1.0); Calcium 9.5 MG/DL (8.5-10.1); Osmolality,Calculated 265.7 MOS/KG (273-304); Total Protein 7.9 G/DL (6.4-8.3)
[2019-10-11] MEDS: carvediloL 6.25 MG TABLET PO SCH ×2 (05:37→16:12)
[2019-10-11 05:54] LABS: Hypochromasia 1+; Microcytosis Slight; Platelet Estimate Adequate; Target Cells Few
[2019-10-11] MEDS: SEVELAMER CARBONATE 800 MG TABLET PO SCH ×3 (08:56→16:12)
[2019-10-11] MEDS: FOLIC ACID 1 MG TABLET PO SCH (08:56)
[2019-10-11] MEDS: amLODIPine 10 MG TABLET PO SCH (08:56)
[2019-10-11] MEDS: hydrOXYzine HCL 25 MG TABLET PO PRN (08:57)
[2019-10-11] MEDS: CINACALCET 30 MG TABLET PO SCH (12:20)
[2019-10-11] MEDS: cefTRIAXone 1,000 MG in SYRINGE 1 EACH IV SCH (13:01)
[2019-10-11] MEDS ORDERED: HYDROmorphone PCA 30 MG/30 ML SYRINGE IV SCH ×2 (13:30→14:30)
[2019-10-11] MEDS ORDERED: LACTATED RINGERS 1,000 ML IV ONE (15:51)
[2019-10-11] MEDS: HYDROmorphone PCA 30 MG/30 ML SYRINGE IV SCH (16:07)
[2019-10-11] MEDS: diphenhydrAMINE CAP 25 MG CAPSULE PO PRN (20:39)
[2019-10-12] MEDS: carvediloL 6.25 MG TABLET PO SCH ×2 (05:51→15:59)
[2019-10-12 06:32] LABS: Basophils # 0.1 10*3/uL (0.0-0.2); Basophils % 0.4 % (0.0-0.8); Eosinophils # 0.1 10*3/uL (0.0-0.87); Hematocrit 22.8 VOL% (35.7-47.0); Hemoglobin 8.1 GM/DL (12.0-16.0); Immature Granulocytes % 1.5 %; Immature Granulocytes Absolute 0.17 #; Lymphocytes # 1.4 10*3/uL (1.4-4.0); Lymphocytes % 11.7 % (21.3-54.2); Mean Corpuscular HGB Conc 35.5 GM/DL (32-36); Mean Corpuscular Volume 78.1 FL (87-102); Monocytes % 9.3 % (1.7-12.7); NRBC # 0.96 10*3/uL; Neutrophils % 76.1 % (38.7-73.9); Platelet Count 219 T/CUMM (130-400); Red Blood Count 2.92 MC/CUMM (3.8-5.5); Red Cell Distribution Width 28.6 % (9.3-17.3); White Blood Count 11.6 T/CUMM (4-12)
[2019-10-12 07:20] LABS: Albumin 2.5 G/DL (3.4-5.0); Bilirubin,Total 6.9 MG/DL (0.2-1.0); Calcium 8.7 MG/DL (8.5-10.1); Osmolality,Calculated 267.8 MOS/KG (273-304); Total Protein 7.3 G/DL (6.4-8.3)
[2019-10-12 07:54] LABS: Anisocytosis 2+; Hypochromasia 1+; Platelet Estimate Normal; Poikilocytosis Slight; Polychromasia Slight
[2019-10-12 07:55] LABS: Macrocytosis 1+; Target Cells 2+
[2019-10-12] MEDS: FOLIC ACID 1 MG TABLET PO SCH (08:06)
[2019-10-12] MEDS: SEVELAMER CARBONATE 800 MG TABLET PO SCH ×4 (08:06→15:59)
[2019-10-12] MEDS ORDERED: VANCOMYCIN INJ 500 MG in SODIUM CHLORIDE 0.9% 100 ML IV PRN (10:23)
[2019-10-12] MEDS: diphenhydrAMINE CAP 25 MG CAPSULE PO PRN (10:34)
[2019-10-12] MEDS: CINACALCET 30 MG TABLET PO SCH ×2 (11:49→14:07)
[2019-10-12] MEDS: hydrOXYzine HCL 25 MG TABLET PO PRN (12:17)
[2019-10-12] MEDS ORDERED: VANCOMYCIN INJ 1,500 MG in SODIUM CHLORIDE 0.9% 500 ML IV ONE (13:00)
[2019-10-12] MEDS: cefTRIAXone 1,000 MG in SYRINGE 1 EACH IV SCH (13:14)
[2019-10-12] MEDS: HYDROmorphone PCA 30 MG/30 ML SYRINGE IV SCH ×2 (13:14→16:05)
[2019-10-12] MEDS: OLANZapine 5 MG TABLET PO SCH (14:07)
[2019-10-13 06:18] LABS: Basophils % 0.4 % (0.0-0.8); Eosinophils % 0.4 % (0.00-10.9); Hematocrit 23.7 VOL% (35.7-47.0); Hemoglobin 8.1 GM/DL (12.0-16.0); Immature Granulocytes % 1.3 %; Immature Granulocytes Absolute 0.14 #; Lymphocytes % 9.4 % (21.3-54.2); Mean Corpuscular HGB Conc 34.2 GM/DL (32-36); Mean Corpuscular Volume 80.1 FL (87-102); NRBC # 0.94 10*3/uL; Neutrophils % 77.5 % (38.7-73.9); Platelet Count 231 T/CUMM (130-400); Red Blood Count 2.96 MC/CUMM (3.8-5.5); White Blood Count 10.5 T/CUMM (4-12)
[2019-10-13 06:41] LABS: Albumin 2.6 G/DL (3.4-5.0); Bilirubin,Total 6.3 MG/DL (0.2-1.0); Osmolality,Calculated 263.9 MOS/KG (273-304); Total Protein 7.6 G/DL (6.4-8.3)
[2019-10-13] MEDS: carvediloL 6.25 MG TABLET PO SCH (07:00)
[2019-10-13] MEDS ORDERED: HALOPERIDOL 5 MG/ML AMP ONE (08:55)
[2019-10-13] MEDS ORDERED: HALOPERIDOL 5 MG/ML AMP IM ONE (09:00)
[2019-10-13] MEDS: SEVELAMER CARBONATE 800 MG TABLET PO SCH ×2 (09:25→14:13)
[2019-10-13] MEDS: FOLIC ACID 1 MG TABLET PO SCH (09:25)
[2019-10-13] MEDS ORDERED: HALOPERIDOL 5 MG/ML AMP IM PRN (09:47)
[2019-10-13] MEDS: OLANZapine 5 MG TABLET PO SCH (09:52)
[2019-10-13 12:41] VITALS: BP 105/48
[2019-10-13] MEDS ORDERED: ZIPRASIDONE 20 MG/1 ML VIAL IM PRN (13:00)
[2019-10-13] MEDS: CINACALCET 30 MG TABLET PO SCH (14:13)
[2019-10-13] MEDS: cefTRIAXone 1,000 MG in SYRINGE 1 EACH IV SCH (15:07)
== END 2019-10-13 15:55 | disposition home or self-care (01) | DRG 811 ==
LOC: N.ED 16:18 → N.EDINP 22:04 → N.2E 22:49
PROVIDERS: ADMIT Family Medicine; ATTEND Family Medicine

== ENCOUNTER 2019-10-27 18:27 | Inpatient (IN) ==
[2019-10-27] MEDS ORDERED: SODIUM CHLORIDE 0.9% 500 ML IV STA (18:54)
[2019-10-27 19:07] LABS: Basophils % 0.2 % (0.0-0.8); Eosinophils % 0.2 % (0.00-10.9); Hematocrit 20.5 VOL% (35.7-47.0); Immature Granulocytes % 1.6 %; Immature Granulocytes Absolute 0.22 #; Lymphocytes # 1.3 10*3/uL (1.4-4.0); Lymphocytes % 9.6 % (21.3-54.2); Mean Corpuscular HGB Conc 34.1 GM/DL (32-36); Mean Corpuscular Volume 84.7 FL (87-102); Monocytes % 7.6 % (1.7-12.7); NRBC # 1.28 10*3/uL; Neutrophils % 80.8 % (38.7-73.9); Platelet Count 191 T/CUMM (130-400); Red Blood Count 2.42 MC/CUMM (3.8-5.5); Red Cell Distribution Width 29.5 % (9.3-17.3); White Blood Count 13.5 T/CUMM (4-12)
[2019-10-27 19:16] LABS: Albumin 2.5 G/DL (3.4-5.0); Bilirubin,Total 8.7 MG/DL (0.2-1.0); Calcium 9.2 MG/DL (8.5-10.1); Osmolality,Calculated 263.1 MOS/KG (273-304); Total Protein 7.2 G/DL (6.4-8.3)
[2019-10-27 20:36] LABS: Anisocytosis 4+; Hypochromasia 4+; Lymphocytes 4 % (20-55); Nucleated Red Blood Cells 1 (0-5); Poikilocytosis 1+; Segmented Neutrophils 92 % (50-85); Sickle Cells Slight; Target Cells 2+; Total Cells Counted 100
[2019-10-27 20:37] LABS: Elliptocytes 1+
[2019-10-27] MEDS ORDERED: ONDANSETRON 4 MG/2 ML VIAL IV PRN (22:18)
[2019-10-27] MEDS ORDERED: ALBUTEROL 2.5 MG/3 ML NEB RESP TX PRN (22:18)
[2019-10-27] MEDS ORDERED: SODIUM CHLORIDE 0.9% 1,000 ML IV PRN (22:18)
[2019-10-27] MEDS ORDERED: PROMETHAZINE 25 MG/1 ML VIAL IM PRN (22:18)
[2019-10-27] MEDS: SODIUM CHLORIDE 0.9% 1,000 ML IV SCH (22:48)
[2019-10-28] MEDS ORDERED: HYDROmorphone 2 MG/1 ML VIAL IV SCH (01:30)
[2019-10-28] MEDS ORDERED: HYDROmorphone 2 MG/1 ML VIAL IV PRN (03:27)
[2019-10-28 05:13] LABS: Basophils % 0.3 % (0.0-0.8); Eosinophils # 0.1 10*3/uL (0.0-0.87); Eosinophils % 0.4 % (0.00-10.9); Hematocrit 27.5 VOL% (35.7-47.0); Immature Granulocytes % 1.1 %; Immature Granulocytes Absolute 0.13 #; Lymphocytes # 1.3 10*3/uL (1.4-4.0); Lymphocytes % 10.6 % (21.3-54.2); Mean Corpuscular HGB Conc 33.1 GM/DL (32-36); Mean Corpuscular Volume 85.7 FL (87-102); Monocytes % 7.9 % (1.7-12.7); NRBC # 1.49 10*3/uL; Neutrophils % 79.7 % (38.7-73.9); Platelet Count 187 T/CUMM (130-400); Red Cell Distribution Width 25.3 % (9.3-17.3); White Blood Count 11.9 T/CUMM (4-12)
[2019-10-28 05:17] LABS: Albumin 2.5 G/DL (3.4-5.0); Calcium 9.3 MG/DL (8.5-10.1); Osmolality,Calculated 266.8 MOS/KG (273-304); Total Protein 7.4 G/DL (6.4-8.3)
[2019-10-28 05:20] LABS: Red Blood Count 3.21 MC/CUMM (3.8-5.5)
[2019-10-28 05:21] LABS: Hemoglobin 9.1 GM/DL (12.0-16.0)
[2019-10-28 05:52] LABS: INR 1.2; PT Patient Result 13.1 SECS (9.8-11.9)
[2019-10-28 07:16] LABS: Lymphocytes 9 % (20-55); Nucleated Red Blood Cells 24 (0-5); Segmented Neutrophils 85 % (50-85); Total Cells Counted 100
[2019-10-28 07:18] LABS: Hypochromasia 2+; Target Cells 1+
[2019-10-28 07:19] LABS: Anisocytosis 1+; Macrocytosis 1+; Pappenheimer Bodies Slight; Polychromasia Slight; Sickle Cells Slight
[2019-10-28 07:20] LABS: Platelet Estimate Adequate
[2019-10-28] MEDS ORDERED: ENOXAPARIN 30 MG/0.3 ML SYRINGE SUBCUT SCH (09:00)
[2019-10-28] MEDS: PANTOPRAZOLE 40 MG VIAL IV SCH (09:48)
[2019-10-28] MEDS: SODIUM CHLORIDE 0.9% 1,000 ML IV SCH (11:18)
[2019-10-28] MEDS ORDERED: ALBUMIN 5% 25 GM in PREMIX 1 EACH IV ONE (20:39)
[2019-10-29] MEDS ORDERED: ZIPRASIDONE 20 MG CAPSULE PO PRN (01:10)
[2019-10-29] MEDS: PHENYLEPHRINE DRIP 40 MG/250 ML PREMIX IV PRN ×6 (04:09→23:40)
[2019-10-29 04:55] LABS: Basophils % 0.3 % (0.0-0.8); Eosinophils # 0.1 10*3/uL (0.0-0.87); Eosinophils % 0.6 % (0.00-10.9); Hematocrit 26.8 VOL% (35.7-47.0); Hemoglobin 8.9 GM/DL (12.0-16.0); Immature Granulocytes % 0.9 %; Immature Granulocytes Absolute 0.09 #; Lymphocytes # 1.1 10*3/uL (1.4-4.0); Lymphocytes % 11.1 % (21.3-54.2); Mean Corpuscular HGB Conc 33.2 GM/DL (32-36); Mean Corpuscular Volume 84.8 FL (87-102); Monocytes % 6.7 % (1.7-12.7); NRBC # 1.58 10*3/uL; Neutrophils % 80.4 % (38.7-73.9); Platelet Count 159 T/CUMM (130-400); Red Blood Count 3.16 MC/CUMM (3.8-5.5); Red Cell Distribution Width 26.7 % (9.3-17.3); White Blood Count 10.1 T/CUMM (4-12)
[2019-10-29 05:22] LABS: Albumin 2.7 G/DL (3.4-5.0); Bilirubin,Total 6.9 MG/DL (0.2-1.0); Calcium 9.2 MG/DL (8.5-10.1); Osmolality,Calculated 263.2 MOS/KG (273-304); Total Protein 7.2 G/DL (6.4-8.3)
[2019-10-29 05:54] LABS: Anisocytosis 3+; Macrocytosis 2+; Platelet Estimate Normal; Target Cells 1+
[2019-10-29 05:55] LABS: Poikilocytosis 1+
[2019-10-29] MEDS: CALCIUM ACETATE 667 MG CAPSULE PO SCH ×3 (09:10→16:37)
[2019-10-29] MEDS: ILOPERIDONE 8 MG PO SCH ×2 (09:10→20:27)
[2019-10-29] MEDS: FOLIC ACID 1 MG TABLET PO SCH (09:10)
[2019-10-29] MEDS: PANTOPRAZOLE 40 MG VIAL IV SCH (09:11)
[2019-10-29] MEDS ORDERED: ALBUMIN 25% 12.5 GM in PREMIX 1 EACH IV ONE (12:09)
[2019-10-29] MEDS: CINACALCET 30 MG TABLET PO SCH (12:26)
[2019-10-30] MEDS: PHENYLEPHRINE DRIP 40 MG/250 ML PREMIX IV PRN ×4 (02:35→21:50)
[2019-10-30 05:17] LABS: Albumin 2.7 G/DL (3.4-5.0); Bilirubin,Total 11.5 MG/DL (0.2-1.0); Calcium 9.2 MG/DL (8.5-10.1); Osmolality,Calculated 258.1 MOS/KG (273-304); Total Protein 7.4 G/DL (6.4-8.3)
[2019-10-30] MEDS: CALCIUM ACETATE 667 MG CAPSULE PO SCH ×3 (08:19→17:23)
[2019-10-30] MEDS: ILOPERIDONE 8 MG PO SCH ×2 (08:19→20:59)
[2019-10-30] MEDS: FOLIC ACID 1 MG TABLET PO SCH (08:20)
[2019-10-30] MEDS: PANTOPRAZOLE 40 MG TABLET PO SCH (08:20)
[2019-10-30] MEDS ORDERED: SODIUM BICARBONATE 50 MEQ/50 ML VIAL IV ONE (09:31)
[2019-10-30 10:06] LABS: Basophils % 0.2 % (0.0-0.8); Hematocrit 25.1 VOL% (35.7-47.0); Hemoglobin 8.2 GM/DL (12.0-16.0); Immature Granulocytes % 1.9 %; Immature Granulocytes Absolute 0.36 #; Lymphocytes # 0.9 10*3/uL (1.4-4.0); Lymphocytes % 4.8 % (21.3-54.2); Mean Corpuscular HGB Conc 32.7 GM/DL (32-36); Mean Corpuscular Volume 87.5 FL (87-102); Monocytes % 8.1 % (1.7-12.7); NRBC # 2.35 10*3/uL; Platelet Count 145 T/CUMM (130-400); Red Blood Count 2.87 MC/CUMM (3.8-5.5); Red Cell Distribution Width 27.9 % (9.3-17.3); White Blood Count 19.2 T/CUMM (4-12)
[2019-10-30] MEDS: MIDODRINE 5 MG TABLET PO SCH ×2 (10:21→21:00)
[2019-10-30] MEDS: HYDROCORTISONE 100 MG VIAL IV SCH ×2 (10:21→17:23)
[2019-10-30 10:30] LABS: Band Neutrophils 5 % (0-10); Lymphocytes 4 % (20-55); Nucleated Red Blood Cells 12 (0-5); Segmented Neutrophils 84 % (50-85); Total Cells Counted 100
[2019-10-30 10:31] LABS: Hypochromasia 2+; Macrocytosis 1+; Pappenheimer Bodies Slight
[2019-10-30 10:32] LABS: Polychromasia Slight; Target Cells 1+
[2019-10-30 10:33] LABS: Platelet Estimate Adequate
[2019-10-30 10:34] LABS: Anisocytosis 1+
[2019-10-30] MEDS: SODIUM BICARB INJ 150 MEQ in DEXTROSE 5% 850 ML IV SCH ×2 (11:14→21:00)
[2019-10-30] MEDS: CINACALCET 30 MG TABLET PO SCH (11:19)
[2019-10-31] MEDS: HYDROCORTISONE 100 MG VIAL IV SCH ×3 (02:33→22:01)
[2019-10-31 03:41] LABS: Basophils % 0.2 % (0.0-0.8); Hematocrit 23.6 VOL% (35.7-47.0); Hemoglobin 8.1 GM/DL (12.0-16.0); Immature Granulocytes Absolute 0.12 #; Lymphocytes # 1.1 10*3/uL (1.4-4.0); Lymphocytes % 8.8 % (21.3-54.2); Mean Corpuscular HGB Conc 34.3 GM/DL (32-36); Mean Corpuscular Volume 82.8 FL (87-102); Monocytes % 4.5 % (1.7-12.7); NRBC # 3.12 10*3/uL; Neutrophils % 85.5 % (38.7-73.9); Platelet Count 148 T/CUMM (130-400); Red Blood Count 2.85 MC/CUMM (3.8-5.5); Red Cell Distribution Width 27.2 % (9.3-17.3); White Blood Count 12.3 T/CUMM (4-12)
[2019-10-31 04:02] LABS: Albumin 2.6 G/DL (3.4-5.0); Bilirubin,Total 11.7 MG/DL (0.2-1.0); Calcium 8.7 MG/DL (8.5-10.1); Osmolality,Calculated 267.1 MOS/KG (273-304); Total Protein 6.9 G/DL (6.4-8.3)
[2019-10-31 04:32] LABS: Hypochromasia 1+; Ovalocytes Slight; Target Cells 1+
[2019-10-31 04:33] LABS: Macrocytosis Slight; Pappenheimer Bodies Slight; Platelet Estimate Adequate; Polychromasia Slight
[2019-10-31] MEDS: SODIUM BICARB INJ 150 MEQ in DEXTROSE 5% 850 ML IV SCH (07:06)
[2019-10-31] MEDS: ILOPERIDONE 8 MG PO SCH ×2 (10:41→22:00)
[2019-10-31] MEDS: CALCIUM ACETATE 667 MG CAPSULE PO SCH ×3 (10:52→17:04)
[2019-10-31] MEDS: FOLIC ACID 1 MG TABLET PO SCH (10:52)
[2019-10-31] MEDS: PANTOPRAZOLE 40 MG TABLET PO SCH (10:53)
[2019-10-31] MEDS: MIDODRINE 5 MG TABLET PO SCH ×2 (10:53→22:01)
[2019-10-31] MEDS ORDERED: HYDROCORTISONE 100 MG VIAL IV SCH ×2 (11:00→15:30)
[2019-10-31] MEDS: CINACALCET 30 MG TABLET PO SCH (11:00)
[2019-10-31] MEDS ORDERED: ZIPRASIDONE 20 MG CAPSULE PO PRN (17:30)
[2019-10-31] MEDS ORDERED: ALBUTEROL 2.5 MG/3 ML NEB RESP TX PRN (19:00)
[2019-11-01 04:50] LABS: Basophils % 0.1 % (0.0-0.8); Hematocrit 20.4 VOL% (35.7-47.0); Immature Granulocytes % 0.7 %; Immature Granulocytes Absolute 0.07 #; Lymphocytes # 0.4 10*3/uL (1.4-4.0); Lymphocytes % 4.6 % (21.3-54.2); Mean Corpuscular HGB Conc 34.3 GM/DL (32-36); Mean Corpuscular Volume 82.6 FL (87-102); Monocytes % 7.8 % (1.7-12.7); Neutrophils % 86.8 % (38.7-73.9); Platelet Count 125 T/CUMM (130-400); Red Blood Count 2.47 MC/CUMM (3.8-5.5); Red Cell Distribution Width 28.4 % (9.3-17.3); White Blood Count 9.4 T/CUMM (4-12)
[2019-11-01 05:09] LABS: Albumin 2.2 G/DL (3.4-5.0); Bilirubin,Total 10.8 MG/DL (0.2-1.0); Calcium 7.5 MG/DL (8.5-10.1); Osmolality,Calculated 272.4 MOS/KG (273-304); Total Protein 6.1 G/DL (6.4-8.3)
[2019-11-01 06:49] LABS: Anisocytosis 3+; Hypochromasia 3+; Lymphocytes 4 % (20-55); Macrocytosis 2+; Microcytosis 1+; Nucleated Red Blood Cells 53 (0-5); Ovalocytes 2+; Platelet Estimate Decreased; Segmented Neutrophils 88 % (50-85); Target Cells 3+; Total Cells Counted 100
[2019-11-01 06:50] LABS: Acanthocytes 1+; Elliptocytes 1+; Howell-Jolly Bodies 2+; Polychromasia 2+; Sickle Cells 1+
[2019-11-01] MEDS ORDERED: SODIUM CHLORIDE 0.9% 1,000 ML IV PRN (07:52)
[2019-11-01] MEDS: PANTOPRAZOLE 40 MG TABLET PO SCH (09:57)
[2019-11-01] MEDS: CALCIUM ACETATE 667 MG CAPSULE PO SCH ×3 (09:57→17:56)
[2019-11-01] MEDS: MIDODRINE 5 MG TABLET PO SCH ×2 (09:58→20:55)
[2019-11-01] MEDS: HYDROCORTISONE 100 MG VIAL IV SCH (09:58)
[2019-11-01] MEDS: FOLIC ACID 1 MG TABLET PO SCH (09:58)
[2019-11-01] MEDS: ILOPERIDONE 8 MG PO SCH ×2 (09:59→20:55)
[2019-11-01] MEDS: CINACALCET 30 MG TABLET PO SCH (12:07)
[2019-11-01] MEDS: MENTHOL/ZINC OXIDE OINT 71 GM JAR TOP SCH ×3 (15:43→20:55)
[2019-11-01] MEDS: HEPARIN 5,000 UNIT/1 ML VIAL SUBCUT SCH (17:56)
[2019-11-02] MEDS: HEPARIN 5,000 UNIT/1 ML VIAL SUBCUT SCH ×2 (05:00→16:08)
[2019-11-02 05:58] LABS: Osmolality,Calculated 274.5 MOS/KG (273-304)
[2019-11-02 06:03] LABS: Albumin 2.2 G/DL (3.4-5.0); Bilirubin,Total 11.3 MG/DL (0.2-1.0); Calcium 7.8 MG/DL (8.5-10.1); Osmolality,Calculated 275.4 MOS/KG (273-304); Total Protein 5.9 G/DL (6.4-8.3)
[2019-11-02 06:32] LABS: Eosinophils % 0.1 % (0.00-10.9); Hematocrit 21.3 VOL% (35.7-47.0); Hemoglobin 7.3 GM/DL (12.0-16.0); Immature Granulocytes % 1.1 %; Immature Granulocytes Absolute 0.09 #; Lymphocytes # 0.7 10*3/uL (1.4-4.0); Lymphocytes % 8.5 % (21.3-54.2); Mean Corpuscular HGB Conc 34.3 GM/DL (32-36); Mean Corpuscular Volume 82.2 FL (87-102); Monocytes % 7.4 % (1.7-12.7); NRBC # 3.07 10*3/uL; Neutrophils % 82.9 % (38.7-73.9); Platelet Count 142 T/CUMM (130-400); Red Blood Count 2.59 MC/CUMM (3.8-5.5); Red Cell Distribution Width 28.9 % (9.3-17.3); White Blood Count 8.4 T/CUMM (4-12)
[2019-11-02 07:13] LABS: Band Neutrophils 1 % (0-10); Lymphocytes 6 % (20-55); Metamyelocytes 1 %; Nucleated Red Blood Cells 50 (0-5); Platelet Estimate Adequate; Segmented Neutrophils 85 % (50-85); Total Cells Counted 100
[2019-11-02 07:14] LABS: Anisocytosis 3+; Polychromasia Slight; Sickle Cells 1+; Target Cells 3+
[2019-11-02 07:15] LABS: Basophilic Stippling Slight; Hypochromasia 2+
[2019-11-02] MEDS: CALCIUM ACETATE 667 MG CAPSULE PO SCH ×3 (09:13→16:08)
[2019-11-02] MEDS: PANTOPRAZOLE 40 MG TABLET PO SCH ×2 (09:13→13:33)
[2019-11-02] MEDS: predniSONE 20 MG TABLET PO SCH ×2 (09:13→13:33)
[2019-11-02] MEDS: FOLIC ACID 1 MG TABLET PO SCH ×2 (09:13→13:33)
[2019-11-02] MEDS: MIDODRINE 5 MG TABLET PO SCH ×3 (09:13→21:16)
[2019-11-02] MEDS: ILOPERIDONE 8 MG PO SCH ×2 (09:13→21:16)
[2019-11-02] MEDS: CINACALCET 30 MG TABLET PO SCH (13:33)
[2019-11-02] MEDS: MENTHOL/ZINC OXIDE OINT 71 GM JAR TOP SCH ×2 (13:33→21:16)
[2019-11-03 03:18] LABS: Hematocrit 28.6 VOL% (35.7-47.0); Hemoglobin 9.4 GM/DL (12.0-16.0); Immature Granulocytes % 0.9 %; Immature Granulocytes Absolute 0.05 #; Lymphocytes # 0.4 10*3/uL (1.4-4.0); Lymphocytes % 6.3 % (21.3-54.2); Mean Corpuscular HGB Conc 32.9 GM/DL (32-36); Mean Corpuscular Volume 85.9 FL (87-102); Monocytes % 6.1 % (1.7-12.7); NRBC # 1.68 10*3/uL; Neutrophils % 86.7 % (38.7-73.9); Platelet Count 110 T/CUMM (130-400); Red Blood Count 3.33 MC/CUMM (3.8-5.5); White Blood Count 5.6 T/CUMM (4-12)
[2019-11-03 03:30] LABS: Calcium 7.9 MG/DL (8.5-10.1); Osmolality,Calculated 265.9 MOS/KG (273-304)
[2019-11-03] MEDS: HEPARIN 5,000 UNIT/1 ML VIAL SUBCUT SCH (04:47)
[2019-11-03] MEDS: predniSONE 20 MG TABLET PO SCH (08:51)
[2019-11-03] MEDS: CALCIUM ACETATE 667 MG CAPSULE PO SCH ×2 (08:51→12:04)
[2019-11-03] MEDS: PANTOPRAZOLE 40 MG TABLET PO SCH (08:51)
[2019-11-03] MEDS: FOLIC ACID 1 MG TABLET PO SCH (08:51)
[2019-11-03] MEDS: ILOPERIDONE 8 MG PO SCH (08:51)
[2019-11-03] MEDS: MIDODRINE 5 MG TABLET PO SCH (08:51)
[2019-11-03] MEDS: MENTHOL/ZINC OXIDE OINT 71 GM JAR TOP SCH (08:52)
[2019-11-03 10:46] LABS: Anisocytosis 2+; Band Neutrophils 1 % (0-10); Lymphocytes 10 % (20-55); Metamyelocytes 2 %; Nucleated Red Blood Cells 38 (0-5); Platelet Estimate Adequate; Poikilocytosis 3+; Polychromasia Slight; Schistocytes Few; Segmented Neutrophils 85 % (50-85); Sickle Cells Slight; Target Cells 1+; Tear Drop Cells Few; Total Cells Counted 100
[2019-11-03 11:34] VITALS: BP 99/61
[2019-11-03] MEDS: CINACALCET 30 MG TABLET PO SCH (12:04)
== END 2019-11-03 14:41 | disposition home or self-care (01) | DRG 811 ==
LOC: EDBD → EDUNIT# → N.ED 18:27 → N.EDINP 21:53 → SUATTDRO 21:53 → N.ICU 22:09 → N.TELEN 10-31 17:01 → N.4E 11-02 16:39
PROVIDERS: ADMIT Internal Medicine; ATTEND Hospitalist

== ENCOUNTER 2019-11-28 08:23 | Inpatient (IN) ==
[2019-11-28] MEDS ORDERED: HYDROmorphone 2 MG/1 ML VIAL IV STA (09:03)
[2019-11-28] MEDS ORDERED: ONDANSETRON 4 MG/2 ML VIAL IV ONE (09:03)
[2019-11-28 09:28] LABS: Basophils % 0.1 % (0.0-0.8); Hematocrit 18.9 VOL% (35.7-47.0); Hemoglobin 6.9 GM/DL (12.0-16.0); Immature Granulocytes Absolute 0.21 #; Lymphocytes # 0.4 10*3/uL (1.4-4.0); Mean Corpuscular HGB Conc 36.5 GM/DL (32-36); Mean Corpuscular Volume 78.8 FL (87-102); Monocytes % 3.2 % (1.7-12.7); NRBC # 1.23 10*3/uL; Neutrophils % 93.7 % (38.7-73.9); Platelet Count 206 T/CUMM (130-400); Red Cell Distribution Width 28.4 % (9.3-17.3); White Blood Count 20.2 T/CUMM (4-12)
[2019-11-28 09:33] LABS: Albumin 2.1 G/DL (3.4-5.0); Calcium 9.1 MG/DL (8.5-10.1); Osmolality,Calculated 264.5 MOS/KG (273-304); Total Protein 6.6 G/DL (6.4-8.3)
[2019-11-28 09:38] LABS: Bilirubin,Total 24.8 MG/DL (0.2-1.0)
[2019-11-28 09:47] LABS: Band Neutrophils 4 % (0-10); Howell-Jolly Bodies Slight; Hypochromasia 1+; Lymphocytes 4 % (20-55); Nucleated Red Blood Cells 7 (0-5); Pappenheimer Bodies Slight; Platelet Estimate Adequate; Segmented Neutrophils 86 % (50-85); Target Cells Few; Total Cells Counted 100
[2019-11-28 09:48] LABS: Macrocytosis Slight; Polychromasia Slight
[2019-11-28] MEDS ORDERED: BENZTROPINE 2 MG/2 ML AMP IV PRN (10:30)
[2019-11-28] MEDS ORDERED: chlorproMAZINE INJ 25 MG in SODIUM CHLORIDE 0.9% 100 ML IV PRN (10:30)
[2019-11-28] MEDS ORDERED: ONDANSETRON 4 MG/2 ML VIAL IV PRN (10:30)
[2019-11-28] MEDS ORDERED: MYLANTA/LIDO VISC 2:1 300 ML BOTTLE SWISH/SWAL PRN (10:30)
[2019-11-28] MEDS ORDERED: guaiFENesin 200 MG/10 ML UDCUP PO PRN (10:30)
[2019-11-28] MEDS ORDERED: traMADol 50 MG TABLET PO PRN (10:30)
[2019-11-28] MEDS ORDERED: diphenhydrAMINE CAP 25 MG CAPSULE PO PRN (10:30)
[2019-11-28] MEDS ORDERED: ALUMINUM/MAGNES/SIMETH MAX STR 30 ML UDCUP PO PRN (10:30)
[2019-11-28] MEDS ORDERED: ACETAMINOPHEN 325 MG TABLET PO PRN (10:30)
[2019-11-28] MEDS ORDERED: SODIUM CHLORIDE 0.9% 500 ML IV STA (10:30)
[2019-11-28] MEDS ORDERED: PROMETHAZINE INJ 25 MG in SODIUM CHLORIDE 0.9% 50 ML IV PRN (10:30)
[2019-11-28] MEDS ORDERED: MYLANTA/LIDO VISC 2:1 300 ML BOTTLE SWISH/SPIT PRN (10:30)
[2019-11-28] MEDS ORDERED: chlorproMAZINE 25 MG TABLET PO PRN (10:30)
[2019-11-28] MEDS ORDERED: TEMAZEPAM 7.5 MG CAPSULE PO PRN (10:30)
[2019-11-28] MEDS ORDERED: ALPRAZolam 0.25 MG TABLET PO PRN (10:30)
[2019-11-28] MEDS ORDERED: MAGNESIUM HYDROXIDE SUSP 30 ML UDCUP PO PRN (10:30)
[2019-11-28] MEDS ORDERED: LACTULOSE 20 GM/30 ML UDCUP PO PRN (10:30)
[2019-11-28] MEDS ORDERED: LOPERAMIDE 2 MG CAPSULE PO PRN ×2 (10:30)
[2019-11-28] MEDS ORDERED: chlorproMAZINE INJ 50 MG in SODIUM CHLORIDE 0.9% 100 ML IV PRN (10:30)
[2019-11-28] MEDS ORDERED: LEVOFLOXACIN INJ 500 MG in PREMIX 1 EACH IV STA (10:38)
[2019-11-28] MEDS ORDERED: SODIUM CHLORIDE 0.9% 1,000 ML IV PRN (11:25)
[2019-11-28 11:41] LABS: Uric Acid 2.7 MG/DL (2.6-6.0)
[2019-11-28] MEDS ORDERED: POTASSIUM CHLORIDE 20 MEQ TABLET PO PRN (12:33)
[2019-11-28] MEDS ORDERED: POTASSIUM CHLORIDE RIDER 10 MEQ in PREMIX 1 EACH IV PRN (12:33)
[2019-11-28] MEDS ORDERED: POTASSIUM CHLORIDE RIDER 20 MEQ in PREMIX 1 EACH IV PRN (12:33)
[2019-11-28] MEDS ORDERED: methylPREDNISolone SOD SUC 125 MG/2 ML VIAL IV ONE (16:10)
[2019-11-28] MEDS ORDERED: LORazepam 2 MG/1 ML VIAL IV ONE (16:58)
[2019-11-28] MEDS ORDERED: LORazepam 2 MG/1 ML VIAL IV PRN (17:37)
[2019-11-29] MEDS: HYDROmorphone 2 MG/1 ML VIAL IV PRN ×2 (14:06→20:59)
[2019-11-30] MEDS: HYDROmorphone 2 MG/1 ML VIAL IV PRN ×4 (05:09→15:59)
[2019-11-30] MEDS: NYSTATIN CREAM 15 GM TUBE TOP SCH ×2 (10:04→22:40)
[2019-11-30 20:16] VITALS: BP 63/32
== END 2019-12-01 02:22 | disposition expired | DRG 441 ==
LOC: EDBD → EDUNIT# → N.ED 08:23 → N.EDINP 10:29 → N.4E 11:23
PROVIDERS: ADMIT Specialist; ATTEND Specialist